=== PATIENT | female | born 1945 | race Asian ===

== ENCOUNTER 2020-06-30 23:20 | Inpatient (IN) | payer MEDICAID, OTHER ==
[~2020-06-30] VITALS: Ht 152.4 cm; Wt 37.6 kg
[2020-06-30] MEDS ORDERED: DEXAMETHASONE SOD PHOS 4 MG/ML 5 ML VIAL IVP ONE (23:30)
[2020-06-30] MEDS ORDERED: ALBUTEROL SULFATE HFA 90 MCG/PUFF 8 GM INHALER IH ONE (23:30)
[2020-06-30 23:59] LABS: ABG A-A DIFF O2 534.7 mmHg (10-20.0); ABG BASE EXCESS -10.3 mmol/L (-2.0-3.0); ABG CARBOXYHEMOGLOBIN 0.7 % (0.0-1.5); ABG HCO3 17.3 mmol/L (22.0-26.0); ABG METHEMOGLOBIN 0.3 % (0.0-1.5); ABG OXYGEN CONTENT 20.8 mL/dL (15.0-23.0); ABG OXYGEN SATURATION 98.6 % (95.0-98.0); ABG OXYHEMOGLOBIN 97.6 % (94.0-100.0); ABG PCO2 33 mmHg (35-45); ABG PH 7.305 (7.35-7.450); PO2, ARTERIAL BG 145.3 mmHg (75.0-83.0); SOURCE, BLOOD GAS ARTERIAL; TEMPERATURE, FAHRENHEIT, BG 98.6 FAHREN (96.0-98.6)
[2020-07-01] VITALS (7 sets, daily range): BP systolic 125–163; BP diastolic 58–81
[2020-07-01] LABS: INSPIRATORY TIME, BG 0.9 SEC; O2 DEVICE,BLOOD GAS BIPAP (ROOM AIR); SITE, BLOOD GAS LFT RADIAL; SPONTANEOUS VT, BG 705 ml; VENT MODE, BG BIPAP (ROOM AIR)
[2020-07-01 00:22] LABS: BASOPHILS % (AUTO) 0.2 % (0.0-2.0); EOSINOPHILS % (AUTO) 0.2 % (1.0-6.0); HEMATOCRIT 41.8 % (36-46); HEMOGLOBIN 13.6 g/dL (12.0-16.0); LYMPHOCYTES % (AUTO) 5.9 % (22.0-44.0); MEAN CORPUSCULAR HEMOGLOBIN 29.5 pg (26.0-34.0); MEAN CORPUSCULAR HGB CONC 32.4 G/dL (31.0-37.0); MEAN CORPUSCULAR VOLUME 91 fL (80-100); MONOCYTES # (AUTO) 0.5 K/uL (0.1-1.0); NEUTROPHILS # (AUTO) 15.3 K/uL (1.8-7.7); PLATELET COUNT (AUTO) 193 K/uL (150-450); RED CELL DISTRIBUTION WIDTH 13.2 % (11.5-14.5)
[2020-07-01 00:26] LABS: NEUTROPHILS % (AUTO) 90.7 % (40.0-70.0)
[2020-07-01 00:34] LABS: ANION GAP 14 mmol/L (8-16); CALCIUM, TOTAL 8.3 mg/dL (8.8-10.5); CARBON DIOXIDE 23 mmol/L (22-29); CHLORIDE 93 mmol/L (98-107); CREATININE 1.22 mg/dL (0.60-1.30); GLOMERULAR FILTR. RATE CALC 43 mL/min (>60); GLUCOSE,RANDOM 294 mg/dL (70-110); POTASSIUM 4.4 mmol/L (3.5-5.1); SODIUM SERUM 130 mmol/L (136-145); UREA NITROGEN, BLOOD 12 mg/dL (7-18)
[2020-07-01 00:58] LABS: INFLUENZA TYPE A NEGATIVE FOR TYPE A (NEGATIVE); INFLUENZA TYPE B NEGATIVE FOR TYPE B (NEGATIVE)
[2020-07-01 00:58] LABS: D-DIMER 12.45 mg/L FEU (0.00-0.50); PROTHROMBIN TIME 10.8 SEC (9.4-11.6)
[2020-07-01 01:00] LABS: B-TYPE NATRIURETIC PEPTIDE 139 pg/mL (0-100)
[2020-07-01 01:03] LABS: LACTIC ACID 7.5 mmol/L (0.4-2.0)
[2020-07-01 01:11] LABS: ALANINE AMINOTRANSFERASE 217 U/L (12-78); ALBUMIN 2.5 g/dL (3.4-5.0); ALKALINE PHOSPHATASE 207 U/L (46-116); ASPARTATE AMINOTRANSFERASE 338 U/L (15-37); BILIRUBIN,TOTAL 0.8 mg/dL (0.1-1.0); C-REACTIVE PROTEIN QUANT 10.96 mg/dL (0.00-0.30); CREATINE KINASE, TOTAL ONLY 183 U/L (26-192); LACTATE DEHYDROGENASE 1356 U/L (81-234); TOTAL PROTEIN, SERUM 7.9 g/dL (6.4-8.2)
[2020-07-01] MEDS ORDERED: PIPERACILLIN/TAZO 3.375 GM/D5W 50 ML IV ONE (01:15)
[2020-07-01] MEDS ORDERED: DOXYCYCLINE HYCLATE 100 MG in DEXTROSE 5%-WATER 100 ML IV ONE (01:15)
[2020-07-01] MEDS ORDERED: SODIUM CHLORIDE 0.9% 1,450 ML IV ONE (01:15)
[2020-07-01] MEDS ORDERED: ASPIRIN 81 MG CHEWABLE TABLET PO ONE (01:15)
[2020-07-01] MEDS ORDERED: CefTRIAXone 1 GM/DEXTROSE 50 ML IV ONE (01:15)
[2020-07-01 01:47] LABS: ABG A-A DIFF O2 509.5 mmHg (10-20.0); ABG BASE EXCESS -5.5 mmol/L (-2.0-3.0); ABG CARBOXYHEMOGLOBIN 0.7 % (0.0-1.5); ABG HCO3 20.5 mmol/L (22.0-26.0); ABG METHEMOGLOBIN 0.1 % (0.0-1.5); ABG OXYGEN CONTENT 18.2 mL/dL (15.0-23.0); ABG OXYGEN SATURATION 91.7 % (95.0-98.0); ABG PCO2 35 mmHg (35-45); ABG PH 7.375 (7.35-7.450); ABG TOTAL HEMOGLOBIN 14.2 G/dL (12.0-18.0); PO2, ARTERIAL BG 60.8 mmHg (75.0-83.0); SOURCE, BLOOD GAS ARTERIAL; TEMPERATURE, FAHRENHEIT, BG 98.6 FAHREN (96.0-98.6)
[2020-07-01 01:49] LABS: INSPIRATORY TIME, BG 0.9 SEC; O2 DEVICE,BLOOD GAS BIPAP (ROOM AIR); SITE, BLOOD GAS LFT RADIAL; SPONTANEOUS VT, BG 505 ml; VENT MODE, BG BIPAP (ROOM AIR)
[2020-07-01] MEDS ORDERED: HEPARIN SODIUM,PORCINE 5,000 UNITS/ML VIAL IVP ONE ×3 (02:00→06:15)
[2020-07-01] MEDS ORDERED: HEPARIN SODIUM,PORCINE 5,000 UNITS/ML VIAL IVP PRN ×4 (02:00→06:15)
[2020-07-01] MEDS ORDERED: HEPARIN SODIUM 25000 UNITS/D5W 250 ML IV PRN ×2 (02:00→06:15)
[2020-07-01 02:03] LABS: FERRITIN 4157 ng/mL (8-252)
[2020-07-01] MEDS ORDERED: SODIUM CHLORIDE 0.9% 100 ML ONE (02:11)
[2020-07-01] MEDS ORDERED: IOVERSOL 350 MG/ML 100 ML VIAL ONE (02:11)
[2020-07-01] MEDS ORDERED: ACETAMINOPHEN 325 MG TABLET PO PRN (04:30)
[2020-07-01] MEDS ORDERED: 0.9% SODIUM CHLORIDE 10 ML SYRINGE IVP PRN (04:30)
[2020-07-01] MEDS ORDERED: DEXAMETHASONE SOD PHOS 4 MG/ML VIAL IVP ONE (06:15)
[2020-07-01] MEDS ORDERED: HYDROCODONE/ACETAMINOPHEN 5-325 MG TABLET PO PRN (06:15)
[2020-07-01] MEDS ORDERED: MORPHINE SULFATE 2 MG/ML SYRINGE IVP PRN (06:15)
[2020-07-01] MEDS ORDERED: ZOLPIDEM TARTRATE 5 MG TABLET PO PRN (06:15)
[2020-07-01] MEDS ORDERED: ONDANSETRON HCL 4 MG/2 ML VIAL IVP PRN (06:15)
[2020-07-01 07:00] LABS: BASOPHILS % (AUTO) 0.1 % (0.0-2.0); EOSINOPHILS % (AUTO) 0 % (1.0-6.0); HEMATOCRIT 38.8 % (36-46); HEMOGLOBIN 12.7 g/dL (12.0-16.0); LYMPHOCYTES # (AUTO) 0.6 K/uL (1.0-4.8); LYMPHOCYTES % (AUTO) 3.4 % (22.0-44.0); MEAN CORPUSCULAR HEMOGLOBIN 29.4 pg (26.0-34.0); MEAN CORPUSCULAR HGB CONC 32.7 G/dL (31.0-37.0); MEAN CORPUSCULAR VOLUME 90 fL (80-100); MONOCYTES # (AUTO) 0.3 K/uL (0.1-1.0); NEUTROPHILS # (AUTO) 15.8 K/uL (1.8-7.7); PLATELET COUNT (AUTO) 170 K/uL (150-450); RED BLOOD CELL COUNT(AUTO) 4.31 MIL/uL (4.00-5.20); RED CELL DISTRIBUTION WIDTH 12.8 % (11.5-14.5)
[2020-07-01] MEDS ORDERED: REMDESIVIR 200 MG in SODIUM CHLORIDE 0.9% 250 ML IV ONE (07:00)
[2020-07-01 07:02] LABS: NEUTROPHILS % (AUTO) 94.5 % (40.0-70.0)
[2020-07-01] MEDS ORDERED: HEPARIN SODIUM,PORCINE 5,000 UNITS/ML VIAL SQ SCH (08:00)
[2020-07-01] MEDS: ASPIRIN 81 MG CHEWABLE TABLET PO SCH (08:50)
[2020-07-01] MEDS: PANTOPRAZOLE SODIUM 40 MG DR TABLET PO SCH (08:50)
[2020-07-01] MEDS: DOCUSATE SODIUM 100 MG CAPSULE PO SCH ×2 (08:50→21:12)
[2020-07-01] MEDS ORDERED: COLCHICINE 0.6 MG TABLET PO ONE (09:00)
[2020-07-01 13:25] LABS: INR 1.1 (0.9-1.1); PROTHROMBIN TIME 11.3 SEC (9.4-11.6)
[2020-07-01] MEDS: ACETAMINOPHEN 325 MG TABLET PO PRN (19:30)
[2020-07-01] MEDS: COLCHICINE 0.6 MG TABLET PO SCH (21:12)
[2020-07-01] MEDS: ATORVASTATIN CALCIUM 40 MG TABLET PO SCH (21:12)
[2020-07-01] MEDS: METOPROLOL SUCCINATE 25 MG ER TABLET PO SCH (21:13)
[2020-07-02] VITALS: BP 124/67
[2020-07-02 04:00] VITALS: BP 127/56
[2020-07-02 04:28] LABS: BASOPHILS % (AUTO) 0.2 % (0.0-2.0); EOSINOPHILS % (AUTO) 0 % (1.0-6.0); HEMATOCRIT 37.5 % (36-46); HEMOGLOBIN 12.3 g/dL (12.0-16.0); LYMPHOCYTES # (AUTO) 1.3 K/uL (1.0-4.8); LYMPHOCYTES % (AUTO) 6.3 % (22.0-44.0); MEAN CORPUSCULAR HEMOGLOBIN 29.3 pg (26.0-34.0); MEAN CORPUSCULAR HGB CONC 32.8 G/dL (31.0-37.0); MEAN CORPUSCULAR VOLUME 89 fL (80-100); MONOCYTES # (AUTO) 0.8 K/uL (0.1-1.0); MONOCYTES % (AUTO) 3.7 % (2.0-9.0); NEUTROPHILS # (AUTO) 18.7 K/uL (1.8-7.7); PLATELET COUNT (AUTO) 221 K/uL (150-450); RED BLOOD CELL COUNT(AUTO) 4.21 MIL/uL (4.00-5.20); RED CELL DISTRIBUTION WIDTH 13.2 % (11.5-14.5)
[2020-07-02 04:34] LABS: NEUTROPHILS % (AUTO) 89.8 % (40.0-70.0)
[2020-07-02 04:44] LABS: ALANINE AMINOTRANSFERASE 160 U/L (12-78); ALBUMIN 2.1 g/dL (3.4-5.0); ALKALINE PHOSPHATASE 164 U/L (46-116); ANION GAP 7 mmol/L (8-16); ASPARTATE AMINOTRANSFERASE 127 U/L (15-37); BILIRUBIN,TOTAL 0.7 mg/dL (0.1-1.0); CARBON DIOXIDE 26 mmol/L (22-29); CHLORIDE 102 mmol/L (98-107); CREATININE 0.85 mg/dL (0.60-1.30); GLUCOSE,RANDOM 136 mg/dL (70-110); POTASSIUM 3.5 mmol/L (3.5-5.1); SODIUM SERUM 135 mmol/L (136-145); TOTAL PROTEIN, SERUM 6.8 g/dL (6.4-8.2); UREA NITROGEN, BLOOD 23 mg/dL (7-18)
[2020-07-02 04:45] LABS: GLOMERULAR FILTR. RATE CALC > 60 mL/min (>60)
[2020-07-02 08:00] VITALS: BP 161/73
[2020-07-02] MEDS: METOPROLOL SUCCINATE 25 MG ER TABLET PO SCH ×3 (08:29→20:52)
[2020-07-02] MEDS: REMDESIVIR 100 MG in SODIUM CHLORIDE 0.9% 250 ML IV SCH (08:29)
[2020-07-02] MEDS: COLCHICINE 0.6 MG TABLET PO SCH ×2 (08:30→20:36)
[2020-07-02] MEDS: PANTOPRAZOLE SODIUM 40 MG DR TABLET PO SCH (08:30)
[2020-07-02] MEDS: ASPIRIN 81 MG CHEWABLE TABLET PO SCH (08:30)
[2020-07-02] MEDS: DOCUSATE SODIUM 100 MG CAPSULE PO SCH ×2 (08:30→20:36)
[2020-07-02] MEDS ORDERED: *CLINICAL-LEVOFLOXACIN IVPB DOSING CLINICAL ONE (11:15)
[2020-07-02 12:00] VITALS: BP 169/80
[2020-07-02] MEDS: LEVOFLOXACIN 750 MG/D5% WATER 150 ML IV SCH (12:08)
[2020-07-02] MEDS: DEXAMETHASONE SOD PHOS 4 MG/ML VIAL IVP SCH (12:51)
[2020-07-02 16:00] VITALS: BP 151/79
[2020-07-02] MEDS: ATORVASTATIN CALCIUM 40 MG TABLET PO SCH (20:51)
[2020-07-03] VITALS: BP 145/72
[2020-07-03 04:42] LABS: BASOPHILS % (AUTO) 0.1 % (0.0-2.0); EOSINOPHILS % (AUTO) 0 % (1.0-6.0); HEMATOCRIT 37.3 % (36-46); HEMOGLOBIN 12.2 g/dL (12.0-16.0); LYMPHOCYTES # (AUTO) 0.9 K/uL (1.0-4.8); LYMPHOCYTES % (AUTO) 4.3 % (22.0-44.0); MEAN CORPUSCULAR HEMOGLOBIN 29.2 pg (26.0-34.0); MEAN CORPUSCULAR HGB CONC 32.7 G/dL (31.0-37.0); MEAN CORPUSCULAR VOLUME 89 fL (80-100); MONOCYTES # (AUTO) 0.7 K/uL (0.1-1.0); MONOCYTES % (AUTO) 3.6 % (2.0-9.0); NEUTROPHILS # (AUTO) 18.7 K/uL (1.8-7.7); PLATELET COUNT (AUTO) 236 K/uL (150-450); RED BLOOD CELL COUNT(AUTO) 4.18 MIL/uL (4.00-5.20); RED CELL DISTRIBUTION WIDTH 13.3 % (11.5-14.5)
[2020-07-03 05:26] LABS: ANION GAP 10 mmol/L (8-16); CARBON DIOXIDE 25 mmol/L (22-29); CHLORIDE 103 mmol/L (98-107); CREATININE 0.63 mg/dL (0.60-1.30); GLOMERULAR FILTR. RATE CALC > 60 mL/min (>60); GLUCOSE,RANDOM 129 mg/dL (70-110); POTASSIUM 3.2 mmol/L (3.5-5.1); SODIUM SERUM 138 mmol/L (136-145); UREA NITROGEN, BLOOD 22 mg/dL (7-18)
[2020-07-03 05:27] LABS: ALANINE AMINOTRANSFERASE 109 U/L (12-78); ALBUMIN 2.1 g/dL (3.4-5.0); ALKALINE PHOSPHATASE 171 U/L (46-116); ASPARTATE AMINOTRANSFERASE 64 U/L (15-37); BILIRUBIN,TOTAL 0.9 mg/dL (0.1-1.0); TOTAL PROTEIN, SERUM 6.6 g/dL (6.4-8.2)
[2020-07-03 06:22] VITALS: BP 170/92
[2020-07-03 08:00] VITALS: BP 175/87
[2020-07-03] MEDS: COLCHICINE 0.6 MG TABLET PO SCH ×2 (08:31→21:03)
[2020-07-03] MEDS: ASPIRIN 81 MG CHEWABLE TABLET PO SCH (08:31)
[2020-07-03] MEDS: REMDESIVIR 100 MG in SODIUM CHLORIDE 0.9% 250 ML IV SCH (08:31)
[2020-07-03] MEDS: PANTOPRAZOLE SODIUM 40 MG DR TABLET PO SCH (08:32)
[2020-07-03] MEDS: DEXAMETHASONE SOD PHOS 4 MG/ML VIAL IVP SCH (08:33)
[2020-07-03] MEDS: METOPROLOL SUCCINATE 25 MG ER TABLET PO SCH (09:00)
[2020-07-03] MEDS: DOCUSATE SODIUM 100 MG CAPSULE PO SCH ×2 (09:00→20:13)
[2020-07-03] MEDS ORDERED: CARVEDILOL 6.25 MG TABLET PO SCH (09:30)
[2020-07-03] MEDS: POTASSIUM CHLORIDE 20 MEQ ER TABLET PO PRN (09:41)
[2020-07-03 12:00] VITALS: BP 139/74
[2020-07-03 16:00] VITALS: BP 136/70
[2020-07-03 20:00] VITALS: BP 159/75
[2020-07-03] MEDS: ATORVASTATIN CALCIUM 40 MG TABLET PO SCH (21:03)
[2020-07-03] MEDS: PANTOPRAZOLE SODIUM 40 MG/VIAL IVP SCH (21:03)
[2020-07-03] MEDS: CARVEDILOL 3.125 MG TABLET PO SCH (21:03)
[2020-07-04] VITALS (8 sets, daily range): BP systolic 111–169; BP diastolic 55–80
[2020-07-04 07:02] LABS: BASOPHILS % (AUTO) 0.2 % (0.0-2.0); EOSINOPHILS % (AUTO) 0.2 % (1.0-6.0); HEMATOCRIT 37.2 % (36-46); HEMOGLOBIN 12.2 g/dL (12.0-16.0); LYMPHOCYTES # (AUTO) 0.7 K/uL (1.0-4.8); LYMPHOCYTES % (AUTO) 4.1 % (22.0-44.0); MEAN CORPUSCULAR HEMOGLOBIN 29.2 pg (26.0-34.0); MEAN CORPUSCULAR HGB CONC 32.9 G/dL (31.0-37.0); MEAN CORPUSCULAR VOLUME 89 fL (80-100); MONOCYTES # (AUTO) 0.9 K/uL (0.1-1.0); MONOCYTES % (AUTO) 5.4 % (2.0-9.0); NEUTROPHILS # (AUTO) 15.9 K/uL (1.8-7.7); PLATELET COUNT (AUTO) 235 K/uL (150-450); RED BLOOD CELL COUNT(AUTO) 4.19 MIL/uL (4.00-5.20)
[2020-07-04 07:38] LABS: NEUTROPHILS % (AUTO) 90.1 % (40.0-70.0)
[2020-07-04 07:59] LABS: ALANINE AMINOTRANSFERASE 102 U/L (12-78); ALBUMIN 1.9 g/dL (3.4-5.0); ALKALINE PHOSPHATASE 160 U/L (46-116); ANION GAP 16 mmol/L (8-16); ASPARTATE AMINOTRANSFERASE 75 U/L (15-37); BILIRUBIN,TOTAL 0.7 mg/dL (0.1-1.0); CARBON DIOXIDE 20 mmol/L (22-29); CHLORIDE 109 mmol/L (98-107); GLUCOSE,RANDOM 112 mg/dL (70-110); POTASSIUM 3.6 mmol/L (3.5-5.1); SODIUM SERUM 145 mmol/L (136-145); TOTAL PROTEIN, SERUM 6.1 g/dL (6.4-8.2); UREA NITROGEN, BLOOD 27 mg/dL (7-18)
[2020-07-04 08:02] LABS: GLOMERULAR FILTR. RATE CALC > 60 mL/min (>60)
[2020-07-04] MEDS: DOCUSATE SODIUM 100 MG CAPSULE PO SCH ×2 (08:55→21:00)
[2020-07-04] MEDS: ASPIRIN 81 MG CHEWABLE TABLET PO SCH (08:57)
[2020-07-04] MEDS: REMDESIVIR 100 MG in SODIUM CHLORIDE 0.9% 250 ML IV SCH (08:57)
[2020-07-04] MEDS: CARVEDILOL 3.125 MG TABLET PO SCH ×2 (08:58→21:00)
[2020-07-04] MEDS: DEXAMETHASONE SOD PHOS 4 MG/ML VIAL IVP SCH (08:58)
[2020-07-04] MEDS: PANTOPRAZOLE SODIUM 40 MG/VIAL IVP SCH ×2 (08:58→21:02)
[2020-07-04] MEDS: CLOPIDOGREL BISULFATE 75 MG TABLET PO SCH (08:58)
[2020-07-04 10:59] LABS: ABG A-A DIFF O2 539.1 mmHg (10-20.0); ABG BASE EXCESS -1.3 mmol/L (-2.0-3.0); ABG HCO3 23.6 mmol/L (22.0-26.0); ABG METHEMOGLOBIN 0.1 % (0.0-1.5); ABG OXYGEN CONTENT 16.8 mL/dL (15.0-23.0); ABG OXYGEN SATURATION 92.6 % (95.0-98.0); ABG OXYHEMOGLOBIN 92.5 % (94.0-100.0); ABG PCO2 36 mmHg (35-45); ABG PH 7.426 (7.35-7.450); ABG TOTAL HEMOGLOBIN 12.9 G/dL (12.0-18.0); O2 DEVICE,BLOOD GAS HI FL CANNULA (ROOM AIR); PO2, ARTERIAL BG 65.4 mmHg (75.0-83.0); SITE, BLOOD GAS RT RADIAL; SOURCE, BLOOD GAS ARTERIAL
[2020-07-04] MEDS: LEVOFLOXACIN 750 MG/D5% WATER 150 ML IV SCH (12:16)
[2020-07-04] MEDS: ASCORBIC ACID 500 MG TABLET PO SCH (21:02)
[2020-07-04] MEDS: ZINC SULFATE 220 MG CAPSULE PO SCH (21:02)
[2020-07-04] MEDS: ATORVASTATIN CALCIUM 40 MG TABLET PO SCH (21:02)
[2020-07-04] MEDS: CHOLECALCIFEROL (VIT D3) 1,000 UNITS [25 MCG] TABLET PO SCH (21:03)
[2020-07-05] VITALS (11 sets, daily range): BP systolic 135–186; BP diastolic 60–100
[2020-07-05 00:03] LABS: GLUCOSE,POINT OF CARE 97 MG/DL (70-110)
[2020-07-05] MEDS ORDERED: LOPERAMIDE HCL 2 MG CAPSULE PO PRN (06:45)
[2020-07-05 07:08] LABS: GLUCOSE,POINT OF CARE 66 MG/DL (70-110)
[2020-07-05] MEDS ORDERED: DEXTROSE 50%-WATER 25 GM/50 ML SYRINGE IVP ONE (07:15)
[2020-07-05] MEDS: REMDESIVIR 100 MG in SODIUM CHLORIDE 0.9% 250 ML IV SCH (08:19)
[2020-07-05 08:22] LABS: BASOPHILS % (AUTO) 0.2 % (0.0-2.0); EOSINOPHILS % (AUTO) 0.8 % (1.0-6.0); HEMATOCRIT 39.3 % (36-46); HEMOGLOBIN 13.1 g/dL (12.0-16.0); LYMPHOCYTES # (AUTO) 0.5 K/uL (1.0-4.8); LYMPHOCYTES % (AUTO) 3.7 % (22.0-44.0); MEAN CORPUSCULAR HEMOGLOBIN 29.5 pg (26.0-34.0); MEAN CORPUSCULAR HGB CONC 33.4 G/dL (31.0-37.0); MEAN CORPUSCULAR VOLUME 88 fL (80-100); MONOCYTES # (AUTO) 0.4 K/uL (0.1-1.0); MONOCYTES % (AUTO) 2.7 % (2.0-9.0); NEUTROPHILS # (AUTO) 12.6 K/uL (1.8-7.7); PLATELET COUNT (AUTO) 197 K/uL (150-450); RED BLOOD CELL COUNT(AUTO) 4.44 MIL/uL (4.00-5.20); RED CELL DISTRIBUTION WIDTH 12.8 % (11.5-14.5)
[2020-07-05 08:26] LABS: NEUTROPHILS % (AUTO) 92.6 % (40.0-70.0)
[2020-07-05] MEDS: DEXAMETHASONE SOD PHOS 4 MG/ML VIAL IVP SCH (08:57)
[2020-07-05] MEDS: DOCUSATE SODIUM 100 MG CAPSULE PO SCH ×2 (09:00→21:00)
[2020-07-05] MEDS: ZINC SULFATE 220 MG CAPSULE PO SCH ×2 (09:01→21:20)
[2020-07-05] MEDS: CLOPIDOGREL BISULFATE 75 MG TABLET PO SCH (09:01)
[2020-07-05] MEDS: CHOLECALCIFEROL (VIT D3) 1,000 UNITS [25 MCG] TABLET PO SCH (09:01)
[2020-07-05] MEDS: ASPIRIN 81 MG CHEWABLE TABLET PO SCH (09:01)
[2020-07-05] MEDS: PANTOPRAZOLE SODIUM 40 MG/VIAL IVP SCH ×3 (09:01→21:20)
[2020-07-05 09:23] LABS: ALANINE AMINOTRANSFERASE 194 U/L (12-78); ALBUMIN 2.5 g/dL (3.4-5.0); ALKALINE PHOSPHATASE 181 U/L (46-116); ANION GAP 11 mmol/L (8-16); ASPARTATE AMINOTRANSFERASE 227 U/L (15-37); BILIRUBIN,TOTAL 1.2 mg/dL (0.1-1.0); CALCIUM, TOTAL 8.4 mg/dL (8.8-10.5); CARBON DIOXIDE 27 mmol/L (22-29); CHLORIDE 101 mmol/L (98-107); CREATININE 0.65 mg/dL (0.60-1.30); FERRITIN 2276 ng/mL (8-252); GLUCOSE,RANDOM 202 mg/dL (70-110); POTASSIUM 3.6 mmol/L (3.5-5.1); SODIUM SERUM 139 mmol/L (136-145); UREA NITROGEN, BLOOD 20 mg/dL (7-18)
[2020-07-05 09:24] LABS: GLOMERULAR FILTR. RATE CALC > 60 mL/min (>60)
[2020-07-05] MEDS: CARVEDILOL 6.25 MG TABLET PO SCH ×2 (09:25→21:20)
[2020-07-05] MEDS: ASCORBIC ACID 500 MG TABLET PO SCH ×2 (09:25→21:20)
[2020-07-05 09:53] LABS: GLUCOSE,POINT OF CARE 135 MG/DL (70-110)
[2020-07-05] MEDS: ACETAMINOPHEN 325 MG TABLET PO PRN ×2 (10:41→17:24)
[2020-07-05] MEDS: LEVOFLOXACIN 750 MG/D5% WATER 150 ML IV SCH (11:17)
[2020-07-05] MEDS ORDERED: HEPARIN SODIUM,PORCINE 5,000 UNITS/ML VIAL IVP PRN (11:45)
[2020-07-05] MEDS: HEPARIN SODIUM 25000 UNITS/D5W 250 ML IV PRN (13:40)
[2020-07-05] MEDS: NITROGLYCERIN 2% (1 GM=INCH) PACKET TP SCH ×2 (17:24→23:55)
[2020-07-05] MEDS: ATORVASTATIN CALCIUM 40 MG TABLET PO SCH (21:22)
[2020-07-06] VITALS (7 sets, daily range): BP systolic 138–169; BP diastolic 57–71
[2020-07-06] MEDS: HEPARIN SODIUM,PORCINE 5,000 UNITS/ML VIAL IVP PRN (02:43)
[2020-07-06 06:49] LABS: BASOPHILS % (AUTO) 0.1 % (0.0-2.0); EOSINOPHILS % (AUTO) 0.8 % (1.0-6.0); HEMOGLOBIN 12.9 g/dL (12.0-16.0); LYMPHOCYTES # (AUTO) 0.7 K/uL (1.0-4.8); LYMPHOCYTES % (AUTO) 5.1 % (22.0-44.0); MEAN CORPUSCULAR VOLUME 88 fL (80-100); MONOCYTES # (AUTO) 0.3 K/uL (0.1-1.0); MONOCYTES % (AUTO) 2.5 % (2.0-9.0); NEUTROPHILS # (AUTO) 12.7 K/uL (1.8-7.7); PLATELET COUNT (AUTO) 188 K/uL (150-450); RED BLOOD CELL COUNT(AUTO) 4.44 MIL/uL (4.00-5.20)
[2020-07-06 07:02] LABS: ALANINE AMINOTRANSFERASE 143 U/L (12-78); ALBUMIN 2.2 g/dL (3.4-5.0); ALKALINE PHOSPHATASE 153 U/L (46-116); ANION GAP 9 mmol/L (8-16); ASPARTATE AMINOTRANSFERASE 106 U/L (15-37); BILIRUBIN,TOTAL 0.9 mg/dL (0.1-1.0); CALCIUM, TOTAL 8.3 mg/dL (8.8-10.5); CARBON DIOXIDE 28 mmol/L (22-29); CHLORIDE 107 mmol/L (98-107); GLUCOSE,RANDOM 104 mg/dL (70-110); POTASSIUM 3.7 mmol/L (3.5-5.1); SODIUM SERUM 144 mmol/L (136-145); TOTAL PROTEIN, SERUM 6.5 g/dL (6.4-8.2); UREA NITROGEN, BLOOD 15 mg/dL (7-18)
[2020-07-06 07:09] LABS: GLOMERULAR FILTR. RATE CALC > 60 mL/min (>60)
[2020-07-06 07:28] LABS: NEUTROPHILS % (AUTO) 91.5 % (40.0-70.0)
[2020-07-06] MEDS: PANTOPRAZOLE SODIUM 40 MG/VIAL IVP SCH ×3 (09:00→21:30)
[2020-07-06] MEDS: DOCUSATE SODIUM 100 MG CAPSULE PO SCH ×2 (09:00→21:00)
[2020-07-06] MEDS: ASPIRIN 81 MG CHEWABLE TABLET PO SCH (09:00)
[2020-07-06] MEDS: CLOPIDOGREL BISULFATE 75 MG TABLET PO SCH (09:00)
[2020-07-06] MEDS: ASCORBIC ACID 500 MG TABLET PO SCH ×2 (09:05→21:30)
[2020-07-06] MEDS: NITROGLYCERIN 2% (1 GM=INCH) PACKET TP SCH ×2 (09:06→16:04)
[2020-07-06] MEDS: ZINC SULFATE 220 MG CAPSULE PO SCH ×2 (09:06→21:30)
[2020-07-06] MEDS: DEXAMETHASONE SOD PHOS 4 MG/ML VIAL IVP SCH (09:06)
[2020-07-06] MEDS: CARVEDILOL 6.25 MG TABLET PO SCH ×2 (09:06→21:30)
[2020-07-06] MEDS: CHOLECALCIFEROL (VIT D3) 1,000 UNITS [25 MCG] TABLET PO SCH (09:06)
[2020-07-06] MEDS: LEVOFLOXACIN 750 MG/D5% WATER 150 ML IV SCH (12:19)
[2020-07-06] MEDS ORDERED: SODIUM CHLORIDE 0.9% 250 ML IV ONE (12:27)
[2020-07-06] MEDS: ATORVASTATIN CALCIUM 40 MG TABLET PO SCH (21:30)
[2020-07-07] VITALS (7 sets, daily range): BP systolic 114–152; BP diastolic 56–72
[2020-07-07] MEDS: NITROGLYCERIN 2% (1 GM=INCH) PACKET TP SCH ×4 (00:43→23:19)
[2020-07-07] MEDS: ASPIRIN 81 MG CHEWABLE TABLET PO SCH (08:51)
[2020-07-07] MEDS: DEXAMETHASONE SOD PHOS 4 MG/ML VIAL IVP SCH (08:51)
[2020-07-07] MEDS: PANTOPRAZOLE SODIUM 40 MG/VIAL IVP SCH ×2 (08:51→20:57)
[2020-07-07] MEDS: CLOPIDOGREL BISULFATE 75 MG TABLET PO SCH (08:52)
[2020-07-07] MEDS: CHOLECALCIFEROL (VIT D3) 1,000 UNITS [25 MCG] TABLET PO SCH (08:52)
[2020-07-07] MEDS: ZINC SULFATE 220 MG CAPSULE PO SCH ×2 (08:52→20:57)
[2020-07-07] MEDS: ASCORBIC ACID 500 MG TABLET PO SCH ×2 (08:52→20:57)
[2020-07-07] MEDS: DOCUSATE SODIUM 100 MG CAPSULE PO SCH ×2 (08:52→20:57)
[2020-07-07] MEDS: CARVEDILOL 6.25 MG TABLET PO SCH ×2 (08:52→20:57)
[2020-07-07 10:31] LABS: D-DIMER 35.2 mg/L FEU (0.00-0.50)
[2020-07-07] MEDS: LEVOFLOXACIN 750 MG/D5% WATER 150 ML IV SCH (11:59)
[2020-07-07] MEDS: ATORVASTATIN CALCIUM 40 MG TABLET PO SCH (20:57)
[2020-07-07] MEDS: HYDROCODONE/CHLORPHEN POLIS 10-8 MG/5 ML ORAL.SYG PO PRN (23:09)
[2020-07-08 05:02] VITALS: BP 143/75
[2020-07-08 07:16] LABS: BASOPHILS % (AUTO) 0.2 % (0.0-2.0); EOSINOPHILS % (AUTO) 0.1 % (1.0-6.0); HEMATOCRIT 37.8 % (36-46); HEMOGLOBIN 12.6 g/dL (12.0-16.0); LYMPHOCYTES # (AUTO) 0.7 K/uL (1.0-4.8); LYMPHOCYTES % (AUTO) 5.1 % (22.0-44.0); MEAN CORPUSCULAR HEMOGLOBIN 29.3 pg (26.0-34.0); MEAN CORPUSCULAR HGB CONC 33.3 G/dL (31.0-37.0); MEAN CORPUSCULAR VOLUME 88 fL (80-100); MONOCYTES # (AUTO) 0.4 K/uL (0.1-1.0); MONOCYTES % (AUTO) 2.6 % (2.0-9.0); NEUTROPHILS # (AUTO) 13.1 K/uL (1.8-7.7); PLATELET COUNT (AUTO) 201 K/uL (150-450); RED BLOOD CELL COUNT(AUTO) 4.29 MIL/uL (4.00-5.20); RED CELL DISTRIBUTION WIDTH 12.9 % (11.5-14.5)
[2020-07-08] MEDS: DOCUSATE SODIUM 100 MG CAPSULE PO SCH ×2 (07:26→20:37)
[2020-07-08 07:30] VITALS: BP 165/76
[2020-07-08] MEDS: NITROGLYCERIN 2% (1 GM=INCH) PACKET TP SCH ×2 (08:25→16:40)
[2020-07-08] MEDS: CHOLECALCIFEROL (VIT D3) 1,000 UNITS [25 MCG] TABLET PO SCH (08:26)
[2020-07-08] MEDS: PANTOPRAZOLE SODIUM 40 MG/VIAL IVP SCH ×2 (08:26→20:37)
[2020-07-08] MEDS: DEXAMETHASONE SOD PHOS 4 MG/ML VIAL IVP SCH (08:26)
[2020-07-08] MEDS: ASCORBIC ACID 500 MG TABLET PO SCH ×2 (08:27→20:37)
[2020-07-08] MEDS: ZINC SULFATE 220 MG CAPSULE PO SCH ×2 (08:27→20:36)
[2020-07-08] MEDS: ASPIRIN 81 MG CHEWABLE TABLET PO SCH (08:27)
[2020-07-08] MEDS: CLOPIDOGREL BISULFATE 75 MG TABLET PO SCH (08:27)
[2020-07-08] MEDS: CARVEDILOL 6.25 MG TABLET PO SCH ×2 (08:27→20:37)
[2020-07-08 12:00] VITALS: BP 166/62
[2020-07-08] MEDS: HEPARIN SODIUM 25000 UNITS/D5W 250 ML IV PRN (12:31)
[2020-07-08 15:30] VITALS: BP 165/76
[2020-07-08 20:00] VITALS: BP 141/72
[2020-07-08] MEDS: ATORVASTATIN CALCIUM 40 MG TABLET PO SCH (20:36)
[2020-07-08 23:40] VITALS: BP 136/64
[2020-07-09] MEDS: NITROGLYCERIN 2% (1 GM=INCH) PACKET TP SCH ×3 (01:33→16:03)
[2020-07-09 04:00] VITALS: BP 144/66
[2020-07-09 06:18] LABS: BASOPHILS % (AUTO) 0.2 % (0.0-2.0); EOSINOPHILS % (AUTO) 0.3 % (1.0-6.0); HEMATOCRIT 36.8 % (36-46); HEMOGLOBIN 12.4 g/dL (12.0-16.0); LYMPHOCYTES # (AUTO) 0.7 K/uL (1.0-4.8); LYMPHOCYTES % (AUTO) 3.5 % (22.0-44.0); MEAN CORPUSCULAR HEMOGLOBIN 29.6 pg (26.0-34.0); MEAN CORPUSCULAR HGB CONC 33.6 G/dL (31.0-37.0); MEAN CORPUSCULAR VOLUME 88 fL (80-100); MONOCYTES # (AUTO) 0.4 K/uL (0.1-1.0); MONOCYTES % (AUTO) 2.1 % (2.0-9.0); NEUTROPHILS # (AUTO) 17.5 K/uL (1.8-7.7); PLATELET COUNT (AUTO) 214 K/uL (150-450); RED BLOOD CELL COUNT(AUTO) 4.18 MIL/uL (4.00-5.20); RED CELL DISTRIBUTION WIDTH 12.8 % (11.5-14.5)
[2020-07-09 06:30] LABS: NEUTROPHILS % (AUTO) 93.9 % (40.0-70.0)
[2020-07-09 07:13] LABS: ALANINE AMINOTRANSFERASE 80 U/L (12-78); ALBUMIN 2.2 g/dL (3.4-5.0); ALKALINE PHOSPHATASE 226 U/L (46-116); ANION GAP 8 mmol/L (8-16); ASPARTATE AMINOTRANSFERASE 61 U/L (15-37); BILIRUBIN,TOTAL 0.8 mg/dL (0.1-1.0); C-REACTIVE PROTEIN QUANT 4.54 mg/dL (0.00-0.30); CALCIUM, TOTAL 8.5 mg/dL (8.8-10.5); CARBON DIOXIDE 31 mmol/L (22-29); CHLORIDE 98 mmol/L (98-107); CREATININE 0.61 mg/dL (0.60-1.30); GLUCOSE,RANDOM 90 mg/dL (70-110); POTASSIUM 4.3 mmol/L (3.5-5.1); SODIUM SERUM 137 mmol/L (136-145); TOTAL PROTEIN, SERUM 6.9 g/dL (6.4-8.2); UREA NITROGEN, BLOOD 16 mg/dL (7-18)
[2020-07-09 07:18] LABS: GLOMERULAR FILTR. RATE CALC > 60 mL/min (>60)
[2020-07-09] MEDS: DEXAMETHASONE SOD PHOS 4 MG/ML VIAL IVP SCH (07:58)
[2020-07-09] MEDS: ZINC SULFATE 220 MG CAPSULE PO SCH ×2 (07:58→20:58)
[2020-07-09] MEDS: CHOLECALCIFEROL (VIT D3) 1,000 UNITS [25 MCG] TABLET PO SCH (07:59)
[2020-07-09] MEDS: DOCUSATE SODIUM 100 MG CAPSULE PO SCH ×2 (07:59→20:59)
[2020-07-09] MEDS: PANTOPRAZOLE SODIUM 40 MG/VIAL IVP SCH ×2 (07:59→20:58)
[2020-07-09] MEDS: ASCORBIC ACID 500 MG TABLET PO SCH ×2 (07:59→20:59)
[2020-07-09] MEDS: CARVEDILOL 6.25 MG TABLET PO SCH ×2 (07:59→20:59)
[2020-07-09 08:24] VITALS: BP 223/103
[2020-07-09 09:00] VITALS: BP 146/74
[2020-07-09 10:44] LABS: ABG BASE EXCESS 6.8 mmol/L (-2.0-3.0); ABG CARBOXYHEMOGLOBIN 1.1 % (0.0-1.5); ABG HCO3 29.6 mmol/L (22.0-26.0); ABG METHEMOGLOBIN 0.3 % (0.0-1.5); ABG OXYGEN CONTENT 18.2 mL/dL (15.0-23.0); ABG OXYGEN SATURATION 96.2 % (95.0-98.0); ABG OXYHEMOGLOBIN 94.9 % (94.0-100.0); ABG PCO2 48 mmHg (35-45); ABG PH 7.428 (7.35-7.450); ABG TOTAL HEMOGLOBIN 13.6 G/dL (12.0-18.0); PO2, ARTERIAL BG 82.7 mmHg (75.0-83.0); SOURCE, BLOOD GAS ARTERIAL
[2020-07-09 10:46] LABS: O2 DEVICE,BLOOD GAS BIPAP (ROOM AIR); SITE, BLOOD GAS RT BRACHIAL
[2020-07-09 10:47] LABS: SPONTANEOUS VT, BG 674 ml
[2020-07-09 11:35] VITALS: BP 174/89
[2020-07-09 15:51] VITALS: BP 147/78
[2020-07-09 20:32] VITALS: BP 183/90
[2020-07-09] MEDS: ATORVASTATIN CALCIUM 40 MG TABLET PO SCH (20:59)
[2020-07-10] VITALS (9 sets, daily range): BP systolic 79–250; BP diastolic 35–93
[2020-07-10] MEDS: NITROGLYCERIN 2% (1 GM=INCH) PACKET TP SCH ×3 (00:25→16:00)
[2020-07-10 06:04] LABS: BASOPHILS % (AUTO) 0.1 % (0.0-2.0); EOSINOPHILS % (AUTO) 0.3 % (1.0-6.0); HEMATOCRIT 37.6 % (36-46); HEMOGLOBIN 12.3 g/dL (12.0-16.0); LYMPHOCYTES # (AUTO) 0.6 K/uL (1.0-4.8); LYMPHOCYTES % (AUTO) 3.4 % (22.0-44.0); MEAN CORPUSCULAR HEMOGLOBIN 29.4 pg (26.0-34.0); MEAN CORPUSCULAR HGB CONC 32.8 G/dL (31.0-37.0); MEAN CORPUSCULAR VOLUME 90 fL (80-100); MONOCYTES # (AUTO) 0.5 K/uL (0.1-1.0); MONOCYTES % (AUTO) 2.7 % (2.0-9.0); PLATELET COUNT (AUTO) 187 K/uL (150-450); RED CELL DISTRIBUTION WIDTH 13.1 % (11.5-14.5)
[2020-07-10 06:09] LABS: NEUTROPHILS % (AUTO) 93.5 % (40.0-70.0)
[2020-07-10 06:53] LABS: ALANINE AMINOTRANSFERASE 85 U/L (12-78); ALBUMIN 2.1 g/dL (3.4-5.0); ALKALINE PHOSPHATASE 211 U/L (46-116); ANION GAP 10 mmol/L (8-16); ASPARTATE AMINOTRANSFERASE 71 U/L (15-37); C-REACTIVE PROTEIN QUANT 7.98 mg/dL (0.00-0.30); CALCIUM, TOTAL 8.3 mg/dL (8.8-10.5); CARBON DIOXIDE 28 mmol/L (22-29); CHLORIDE 92 mmol/L (98-107); CREATININE 0.64 mg/dL (0.60-1.30); GLUCOSE,RANDOM 117 mg/dL (70-110); POTASSIUM 4.3 mmol/L (3.5-5.1); SODIUM SERUM 130 mmol/L (136-145); UREA NITROGEN, BLOOD 25 mg/dL (7-18)
[2020-07-10 06:56] LABS: GLOMERULAR FILTR. RATE CALC > 60 mL/min (>60)
[2020-07-10] MEDS: HEPARIN SODIUM,PORCINE 5,000 UNITS/ML VIAL IVP PRN (07:58)
[2020-07-10] MEDS: ASCORBIC ACID 500 MG TABLET PO SCH ×2 (07:58→21:00)
[2020-07-10] MEDS: DOCUSATE SODIUM 100 MG CAPSULE PO SCH ×2 (07:59→21:00)
[2020-07-10] MEDS: CHOLECALCIFEROL (VIT D3) 1,000 UNITS [25 MCG] TABLET PO SCH (07:59)
[2020-07-10] MEDS: DEXAMETHASONE SOD PHOS 4 MG/ML VIAL IVP SCH (07:59)
[2020-07-10] MEDS: ZINC SULFATE 220 MG CAPSULE PO SCH ×2 (07:59→21:00)
[2020-07-10] MEDS: PANTOPRAZOLE SODIUM 40 MG/VIAL IVP SCH ×2 (07:59→21:00)
[2020-07-10] MEDS: CARVEDILOL 6.25 MG TABLET PO SCH ×3 (07:59→22:33)
[2020-07-10] MEDS: HydrALAZINE HCL 20 MG/ML VIAL IVP PRN ×3 (12:11→22:42)
[2020-07-10] MEDS: LORazepam 2 MG/ML VIAL IVP PRN (14:25)
[2020-07-10] MEDS: DEXMEDETOMIDINE HCL 400 MCG in SODIUM CHLORIDE 0.9% 96 ML IV PRN (15:16)
[2020-07-10] MEDS: CefTAZidime PENTAHYDRATE 2 GM in DEXTROSE 5%-WATER 50 ML IV SCH ×2 (15:16→22:18)
[2020-07-10] MEDS: DOXYCYCLINE HYCLATE 100 MG in DEXTROSE 5%-WATER 100 ML IV SCH (15:17)
[2020-07-10] MEDS: PHENYLEPHRINE 200 MG/D5%-WATER 250 ML IV PRN (16:29)
[2020-07-10] MEDS: HEPARIN SODIUM 25000 UNITS/D5W 250 ML IV PRN (18:38)
[2020-07-10] MEDS: ATORVASTATIN CALCIUM 40 MG TABLET PO SCH (21:00)
[2020-07-11] VITALS: BP 81/33
[2020-07-11] MEDS: DOXYCYCLINE HYCLATE 100 MG in DEXTROSE 5%-WATER 100 ML IV SCH ×2 (03:20→14:04)
[2020-07-11 04:00] VITALS: BP 159/75
[2020-07-11 06:08] LABS: BASOPHILS % (AUTO) 0.6 % (0.0-2.0); EOSINOPHILS % (AUTO) 0.2 % (1.0-6.0); HEMATOCRIT 40.5 % (36-46); HEMOGLOBIN 13.6 g/dL (12.0-16.0); LYMPHOCYTES # (AUTO) 0.6 K/uL (1.0-4.8); LYMPHOCYTES % (AUTO) 2.5 % (22.0-44.0); MEAN CORPUSCULAR HEMOGLOBIN 29.7 pg (26.0-34.0); MEAN CORPUSCULAR HGB CONC 33.7 G/dL (31.0-37.0); MEAN CORPUSCULAR VOLUME 88 fL (80-100); MONOCYTES # (AUTO) 0.8 K/uL (0.1-1.0); MONOCYTES % (AUTO) 3.4 % (2.0-9.0); NEUTROPHILS # (AUTO) 21.4 K/uL (1.8-7.7); PLATELET COUNT (AUTO) 188 K/uL (150-450); RED BLOOD CELL COUNT(AUTO) 4.59 MIL/uL (4.00-5.20)
[2020-07-11] MEDS: CefTAZidime PENTAHYDRATE 2 GM in DEXTROSE 5%-WATER 50 ML IV SCH ×3 (06:17→21:53)
[2020-07-11 06:45] LABS: ALANINE AMINOTRANSFERASE 91 U/L (12-78); ALBUMIN 2.3 g/dL (3.4-5.0); ALKALINE PHOSPHATASE 216 U/L (46-116); ANION GAP 9 mmol/L (8-16); ASPARTATE AMINOTRANSFERASE 61 U/L (15-37); BILIRUBIN,TOTAL 1.3 mg/dL (0.1-1.0); C-REACTIVE PROTEIN QUANT 6.52 mg/dL (0.00-0.30); CARBON DIOXIDE 30 mmol/L (22-29); CHLORIDE 92 mmol/L (98-107); CREATININE 0.72 mg/dL (0.60-1.30); GLUCOSE,RANDOM 78 mg/dL (70-110); POTASSIUM 4.1 mmol/L (3.5-5.1); SODIUM SERUM 131 mmol/L (136-145); TOTAL PROTEIN, SERUM 7.5 g/dL (6.4-8.2); UREA NITROGEN, BLOOD 26 mg/dL (7-18)
[2020-07-11 07:08] LABS: GLOMERULAR FILTR. RATE CALC > 60 mL/min (>60)
[2020-07-11 07:31] LABS: NEUTROPHILS % (AUTO) 93.3 % (40.0-70.0)
[2020-07-11] MEDS ORDERED: DEXMEDETOMIDINE HCL 200 MCG in SODIUM CHLORIDE 0.9% 48 ML IV PRN (07:45)
[2020-07-11] MEDS: PANTOPRAZOLE SODIUM 40 MG/VIAL IVP SCH ×2 (07:55→21:03)
[2020-07-11] MEDS: CARVEDILOL 6.25 MG TABLET PO SCH ×3 (07:55→21:03)
[2020-07-11] MEDS: NITROGLYCERIN 2% (1 GM=INCH) PACKET TP SCH ×3 (07:55→17:38)
[2020-07-11] MEDS: DEXAMETHASONE SOD PHOS 4 MG/ML VIAL IVP SCH (07:55)
[2020-07-11 08:00] VITALS: BP 147/64
[2020-07-11] MEDS: DEXMEDETOMIDINE HCL 400 MCG in SODIUM CHLORIDE 0.9% 96 ML IV PRN (08:17)
[2020-07-11] MEDS: DOCUSATE SODIUM 100 MG CAPSULE PO SCH ×2 (09:00→21:03)
[2020-07-11] MEDS: ZINC SULFATE 220 MG CAPSULE PO SCH ×2 (09:00→21:03)
[2020-07-11] MEDS: ASCORBIC ACID 500 MG TABLET PO SCH ×2 (09:00→21:03)
[2020-07-11] MEDS: CHOLECALCIFEROL (VIT D3) 1,000 UNITS [25 MCG] TABLET PO SCH (09:00)
[2020-07-11] MEDS: LORazepam 2 MG/ML VIAL IVP PRN (10:32)
[2020-07-11 12:00] VITALS: BP 99/43
[2020-07-11 12:32] LABS: GLUCOSE,POINT OF CARE 95 MG/DL (70-110)
[2020-07-11 16:00] VITALS: BP 114/58
[2020-07-11] MEDS ORDERED: LIDOCAINE 1% 10 ML VIAL SQ ONE (16:30)
[2020-07-11] MEDS: DEXTROSE 5%-0.45% SODIUM CHL 1,000 ML IV SCH (17:22)
[2020-07-11] MEDS: HEPARIN SODIUM,PORCINE 5,000 UNITS/ML VIAL IVP PRN (17:50)
[2020-07-11] MEDS: HEPARIN SODIUM 25000 UNITS/D5W 250 ML IV PRN (17:51)
[2020-07-11 20:00] VITALS: BP 120/66
[2020-07-11] MEDS: ATORVASTATIN CALCIUM 40 MG TABLET PO SCH (21:03)
[2020-07-12] VITALS: BP 123/53
[2020-07-12] MEDS: NITROGLYCERIN 2% (1 GM=INCH) PACKET TP SCH ×4 (00:58→23:49)
[2020-07-12] MEDS ORDERED: SODIUM CHLORIDE 0.9% 100 ML ONE (03:06)
[2020-07-12] MEDS: DOXYCYCLINE HYCLATE 100 MG in DEXTROSE 5%-WATER 100 ML IV SCH ×2 (03:09→15:02)
[2020-07-12 04:00] VITALS: BP 164/83
[2020-07-12] MEDS: CefTAZidime PENTAHYDRATE 2 GM in DEXTROSE 5%-WATER 50 ML IV SCH ×3 (05:54→21:08)
[2020-07-12 07:34] LABS: BASOPHILS % (AUTO) 0.1 % (0.0-2.0); EOSINOPHILS % (AUTO) 0 % (1.0-6.0); HEMATOCRIT 35.2 % (36-46); HEMOGLOBIN 11.8 g/dL (12.0-16.0); LYMPHOCYTES # (AUTO) 0.6 K/uL (1.0-4.8); LYMPHOCYTES % (AUTO) 3.2 % (22.0-44.0); MEAN CORPUSCULAR HEMOGLOBIN 29.3 pg (26.0-34.0); MEAN CORPUSCULAR HGB CONC 33.5 G/dL (31.0-37.0); MEAN CORPUSCULAR VOLUME 87 fL (80-100); MONOCYTES # (AUTO) 0.8 K/uL (0.1-1.0); MONOCYTES % (AUTO) 4.3 % (2.0-9.0); NEUTROPHILS # (AUTO) 17.1 K/uL (1.8-7.7); PLATELET COUNT (AUTO) 221 K/uL (150-450); RED BLOOD CELL COUNT(AUTO) 4.03 MIL/uL (4.00-5.20); RED CELL DISTRIBUTION WIDTH 12.8 % (11.5-14.5)
[2020-07-12 07:41] LABS: NEUTROPHILS % (AUTO) 92.4 % (40.0-70.0)
[2020-07-12 08:00] VITALS: BP 150/63
[2020-07-12 08:13] LABS: ALANINE AMINOTRANSFERASE 98 U/L (12-78); ANION GAP 10 mmol/L (8-16); CALCIUM, TOTAL 8.6 mg/dL (8.8-10.5); CARBON DIOXIDE 28 mmol/L (22-29); CHLORIDE 95 mmol/L (98-107); CREATININE 0.57 mg/dL (0.60-1.30); POTASSIUM 3.6 mmol/L (3.5-5.1); SODIUM SERUM 133 mmol/L (136-145)
[2020-07-12 08:22] LABS: GLOMERULAR FILTR. RATE CALC > 60 mL/min (>60)
[2020-07-12 08:34] LABS: ALKALINE PHOSPHATASE 183 U/L (46-116); ASPARTATE AMINOTRANSFERASE 80 U/L (15-37); BILIRUBIN,TOTAL 1.1 mg/dL (0.1-1.0); GLUCOSE,RANDOM 110 mg/dL (70-110); TOTAL PROTEIN, SERUM 6.9 g/dL (6.4-8.2); UREA NITROGEN, BLOOD 29 mg/dL (7-18)
[2020-07-12] MEDS: ZINC SULFATE 220 MG CAPSULE PO SCH ×2 (09:00→21:00)
[2020-07-12] MEDS: ASCORBIC ACID 500 MG TABLET PO SCH ×2 (09:00→21:00)
[2020-07-12] MEDS: CHOLECALCIFEROL (VIT D3) 1,000 UNITS [25 MCG] TABLET PO SCH (09:00)
[2020-07-12] MEDS: CARVEDILOL 3.125 MG TABLET PO SCH ×2 (09:00→21:00)
[2020-07-12] MEDS: ASPIRIN 81 MG CHEWABLE TABLET PO SCH (09:00)
[2020-07-12] MEDS: DOCUSATE SODIUM 100 MG CAPSULE PO SCH ×2 (09:00→21:00)
[2020-07-12] MEDS: DEXAMETHASONE SOD PHOS 4 MG/ML VIAL IVP SCH (09:39)
[2020-07-12] MEDS: LORazepam 2 MG/ML VIAL IVP PRN ×4 (09:40→21:16)
[2020-07-12] MEDS: PANTOPRAZOLE SODIUM 40 MG/VIAL IVP SCH ×2 (09:42→21:06)
[2020-07-12] MEDS: DEXTROSE 5%-0.45% SODIUM CHL 1,000 ML IV SCH (11:32)
[2020-07-12 12:00] VITALS: BP 125/68
[2020-07-12] MEDS ORDERED: DEXTROSE 5%-0.9% SODIUM CHL 1,000 ML IV ONE (13:45)
[2020-07-12 16:00] VITALS: BP 128/75
[2020-07-12 16:51] LABS: GLUCOSE,POINT OF CARE 117 MG/DL (70-110)
[2020-07-12 20:00] VITALS: BP 139/70
[2020-07-12] MEDS: ATORVASTATIN CALCIUM 40 MG TABLET PO SCH (21:00)
[2020-07-13] VITALS: BP 113/50
[2020-07-13 00:15] LABS: GLUCOSE,POINT OF CARE 192 MG/DL (70-110)
[2020-07-13] MEDS: DOXYCYCLINE HYCLATE 100 MG in DEXTROSE 5%-WATER 100 ML IV SCH ×2 (03:10→14:43)
[2020-07-13 04:00] VITALS: BP 152/67
[2020-07-13 05:43] LABS: BASOPHILS % (AUTO) 0.1 % (0.0-2.0); EOSINOPHILS % (AUTO) 0 % (1.0-6.0); HEMATOCRIT 32.6 % (36-46); HEMOGLOBIN 10.9 g/dL (12.0-16.0); LYMPHOCYTES # (AUTO) 0.5 K/uL (1.0-4.8); LYMPHOCYTES % (AUTO) 2.9 % (22.0-44.0); MEAN CORPUSCULAR HEMOGLOBIN 29.5 pg (26.0-34.0); MEAN CORPUSCULAR HGB CONC 33.5 G/dL (31.0-37.0); MEAN CORPUSCULAR VOLUME 88 fL (80-100); MONOCYTES # (AUTO) 0.9 K/uL (0.1-1.0); MONOCYTES % (AUTO) 5.6 % (2.0-9.0); NEUTROPHILS # (AUTO) 14.3 K/uL (1.8-7.7); PLATELET COUNT (AUTO) 212 K/uL (150-450); RED CELL DISTRIBUTION WIDTH 12.8 % (11.5-14.5)
[2020-07-13] MEDS: LORazepam 2 MG/ML VIAL IVP PRN ×6 (05:45→17:53)
[2020-07-13] MEDS: CefTAZidime PENTAHYDRATE 2 GM in DEXTROSE 5%-WATER 50 ML IV SCH ×3 (05:45→22:16)
[2020-07-13 05:56] LABS: NEUTROPHILS % (AUTO) 91.4 % (40.0-70.0)
[2020-07-13 06:02] LABS: ANION GAP 8 mmol/L (8-16); CARBON DIOXIDE 28 mmol/L (22-29); CHLORIDE 103 mmol/L (98-107); CREATININE 0.58 mg/dL (0.60-1.30); GLUCOSE,RANDOM 135 mg/dL (70-110); POTASSIUM 3.5 mmol/L (3.5-5.1); SODIUM SERUM 139 mmol/L (136-145); UREA NITROGEN, BLOOD 21 mg/dL (7-18)
[2020-07-13 06:03] LABS: ALANINE AMINOTRANSFERASE 85 U/L (12-78); ALBUMIN 1.8 g/dL (3.4-5.0); ALKALINE PHOSPHATASE 148 U/L (46-116); ASPARTATE AMINOTRANSFERASE 44 U/L (15-37); BILIRUBIN,TOTAL 0.8 mg/dL (0.1-1.0); CALCIUM, TOTAL 8.2 mg/dL (8.8-10.5); TOTAL PROTEIN, SERUM 6.4 g/dL (6.4-8.2)
[2020-07-13 06:06] LABS: GLOMERULAR FILTR. RATE CALC > 60 mL/min (>60)
[2020-07-13 08:00] VITALS: BP 161/79
[2020-07-13] MEDS: CARVEDILOL 3.125 MG TABLET PO SCH ×2 (08:26→20:13)
[2020-07-13] MEDS: DOCUSATE SODIUM 100 MG CAPSULE PO SCH ×2 (08:26→20:13)
[2020-07-13] MEDS: ASCORBIC ACID 500 MG TABLET PO SCH ×2 (08:26→20:13)
[2020-07-13] MEDS: ASPIRIN 81 MG CHEWABLE TABLET PO SCH (08:26)
[2020-07-13] MEDS: ZINC SULFATE 220 MG CAPSULE PO SCH ×2 (08:27→20:13)
[2020-07-13] MEDS: CHOLECALCIFEROL (VIT D3) 1,000 UNITS [25 MCG] TABLET PO SCH (08:27)
[2020-07-13] MEDS: PANTOPRAZOLE SODIUM 40 MG/VIAL IVP SCH ×2 (08:41→20:12)
[2020-07-13] MEDS: NITROGLYCERIN 2% (1 GM=INCH) PACKET TP SCH ×3 (08:41→23:05)
[2020-07-13] MEDS: DEXAMETHASONE SOD PHOS 4 MG/ML VIAL IVP SCH (08:45)
[2020-07-13] MEDS: POTASSIUM CHL 10 MEQ/WATER 50 ML IV PRN ×3 (09:39→12:11)
[2020-07-13] MEDS: HEPARIN SODIUM 25000 UNITS/D5W 250 ML IV PRN ×2 (11:30→18:50)
[2020-07-13 11:34] LABS: ABG A-A DIFF O2 605.1 mmHg (10-20.0); ABG CARBOXYHEMOGLOBIN 0.8 % (0.0-1.5); ABG HCO3 25.5 mmol/L (22.0-26.0); ABG METHEMOGLOBIN 0.3 % (0.0-1.5); ABG OXYGEN SATURATION 94.6 % (95.0-98.0); ABG OXYHEMOGLOBIN 93.6 % (94.0-100.0); ABG PCO2 36 mmHg (35-45); ABG PH 7.457 (7.35-7.450); ABG TOTAL HEMOGLOBIN 12.1 G/dL (12.0-18.0); O2 DEVICE,BLOOD GAS BIPAP (ROOM AIR); PO2, ARTERIAL BG 71.9 mmHg (75.0-83.0); SITE, BLOOD GAS LFT RADIAL; SOURCE, BLOOD GAS ARTERIAL; TEMPERATURE, FAHRENHEIT, BG 98.6 FAHREN (96.0-98.6)
[2020-07-13] MEDS: HydrALAZINE HCL 20 MG/ML VIAL IVP PRN ×2 (11:56→20:12)
[2020-07-13 12:00] VITALS: BP 181/91
[2020-07-13 16:00] VITALS: BP 139/77
[2020-07-13] MEDS ORDERED: SODIUM CHLORIDE 0.9% 250 ML IV ONE (19:44)
[2020-07-13 20:00] VITALS: BP 154/77
[2020-07-13] MEDS: ATORVASTATIN CALCIUM 40 MG TABLET PO SCH (20:13)
[2020-07-14] VITALS: BP 159/77
[2020-07-14] MEDS: HydrALAZINE HCL 20 MG/ML VIAL IVP PRN ×2 (02:08→08:10)
[2020-07-14] MEDS: LORazepam 2 MG/ML VIAL IVP PRN (03:02)
[2020-07-14] MEDS: DOXYCYCLINE HYCLATE 100 MG in DEXTROSE 5%-WATER 100 ML IV SCH ×2 (03:03→15:18)
[2020-07-14 04:00] VITALS: BP 133/61
[2020-07-14] MEDS: CefTAZidime PENTAHYDRATE 2 GM in DEXTROSE 5%-WATER 50 ML IV SCH ×3 (06:04→21:45)
[2020-07-14] MEDS: ASPIRIN 81 MG CHEWABLE TABLET PO SCH (07:37)
[2020-07-14] MEDS: DOCUSATE SODIUM 100 MG CAPSULE PO SCH ×2 (07:37→20:33)
[2020-07-14] MEDS: CARVEDILOL 3.125 MG TABLET PO SCH ×2 (07:38→21:00)
[2020-07-14] MEDS: ASCORBIC ACID 500 MG TABLET PO SCH ×2 (07:38→20:32)
[2020-07-14] MEDS: ZINC SULFATE 220 MG CAPSULE PO SCH ×2 (07:38→20:33)
[2020-07-14] MEDS: CHOLECALCIFEROL (VIT D3) 1,000 UNITS [25 MCG] TABLET PO SCH (07:38)
[2020-07-14 08:00] VITALS: BP 160/73
[2020-07-14] MEDS: DEXAMETHASONE SOD PHOS 4 MG/ML VIAL IVP SCH (08:06)
[2020-07-14] MEDS: NITROGLYCERIN 2% (1 GM=INCH) PACKET TP SCH ×3 (08:06→23:43)
[2020-07-14] MEDS: PANTOPRAZOLE SODIUM 40 MG/VIAL IVP SCH ×2 (08:06→20:32)
[2020-07-14 09:47] LABS: BASOPHILS % (AUTO) 0.1 % (0.0-2.0); EOSINOPHILS % (AUTO) 0.8 % (1.0-6.0); HEMATOCRIT 34.6 % (36-46); HEMOGLOBIN 11.3 g/dL (12.0-16.0); LYMPHOCYTES # (AUTO) 0.7 K/uL (1.0-4.8); LYMPHOCYTES % (AUTO) 3.7 % (22.0-44.0); MEAN CORPUSCULAR HGB CONC 32.6 G/dL (31.0-37.0); MEAN CORPUSCULAR VOLUME 89 fL (80-100); MONOCYTES # (AUTO) 0.9 K/uL (0.1-1.0); MONOCYTES % (AUTO) 4.6 % (2.0-9.0); PLATELET COUNT (AUTO) 232 K/uL (150-450); RED BLOOD CELL COUNT(AUTO) 3.89 MIL/uL (4.00-5.20); RED CELL DISTRIBUTION WIDTH 13.1 % (11.5-14.5)
[2020-07-14 09:48] LABS: NEUTROPHILS % (AUTO) 90.8 % (40.0-70.0)
[2020-07-14] MEDS ORDERED: ETOMIDATE 2 MG/ML 10 ML VIAL ONE (10:05)
[2020-07-14 10:12] LABS: ALANINE AMINOTRANSFERASE 77 U/L (12-78); ALBUMIN 1.8 g/dL (3.4-5.0); ALKALINE PHOSPHATASE 165 U/L (46-116); ANION GAP 7 mmol/L (8-16); ASPARTATE AMINOTRANSFERASE 45 U/L (15-37); BILIRUBIN,TOTAL 0.7 mg/dL (0.1-1.0); CALCIUM, TOTAL 8.4 mg/dL (8.8-10.5); CARBON DIOXIDE 27 mmol/L (22-29); CHLORIDE 107 mmol/L (98-107); CREATININE 0.44 mg/dL (0.60-1.30); GLUCOSE,RANDOM 78 mg/dL (70-110); POTASSIUM 3.5 mmol/L (3.5-5.1); SODIUM SERUM 141 mmol/L (136-145); TOTAL PROTEIN, SERUM 6.3 g/dL (6.4-8.2); UREA NITROGEN, BLOOD 15 mg/dL (7-18)
[2020-07-14 10:13] LABS: GLOMERULAR FILTR. RATE CALC > 60 mL/min (>60)
[2020-07-14] MEDS ORDERED: ETOMIDATE 2 MG/ML 10 ML VIAL IVP ONE (10:15)
[2020-07-14] MEDS ORDERED: ROCURONIUM BROMIDE 10 MG/ML 5 ML VIAL IVP ONE (10:15)
[2020-07-14] MEDS: DEXTROSE 5%-0.9% SODIUM CHL 1,000 ML IV SCH (10:27)
[2020-07-14] MEDS ORDERED: SODIUM CHLORIDE 0.9% 500 ML IV ONE ×3 (11:24→14:30)
[2020-07-14 12:00] VITALS: BP 231/111
[2020-07-14] MEDS: PROPOFOL 1000 MG/ISO-OSM 100 ML IV PRN ×2 (12:06→17:19)
[2020-07-14] MEDS: FentaNYL CIT 1000MCG/D5%-WATER 100 ML IV PRN ×2 (12:06→21:58)
[2020-07-14] MEDS ORDERED: ALBUMIN HUMAN 25%-25GM/100ML 100 ML IV ONE (14:30)
[2020-07-14 14:49] LABS: ABG A-A DIFF O2 598.5 mmHg (10-20.0); ABG BASE EXCESS -2.3 mmol/L (-2.0-3.0); ABG CARBOXYHEMOGLOBIN 0.6 % (0.0-1.5); ABG HCO3 22.8 mmol/L (22.0-26.0); ABG METHEMOGLOBIN 0.3 % (0.0-1.5); ABG OXYGEN CONTENT 14.9 mL/dL (15.0-23.0); ABG OXYGEN SATURATION 95.8 % (95.0-98.0); ABG OXYHEMOGLOBIN 94.9 % (94.0-100.0); ABG PCO2 37 mmHg (35-45); ABG TOTAL HEMOGLOBIN 11.1 G/dL (12.0-18.0); PO2, ARTERIAL BG 78.4 mmHg (75.0-83.0); SOURCE, BLOOD GAS ARTERIAL; TEMPERATURE, FAHRENHEIT, BG 97.9 FAHREN (96.0-98.6)
[2020-07-14 14:50] LABS: PEEP,BG 7 cm H2O; SITE, BLOOD GAS LFT RADIAL; SPONTANEOUS VT, BG 456 ml
[2020-07-14 14:51] LABS: O2 DEVICE,BLOOD GAS VENTILATOR (ROOM AIR); VENT MODE, BG Press. Control Vent (ROOM AIR)
[2020-07-14] MEDS: PHENYLEPHRINE 200 MG/D5%-WATER 250 ML IV PRN (15:22)
[2020-07-14 16:00] VITALS: BP 115/64
[2020-07-14] MEDS: ATORVASTATIN CALCIUM 40 MG TABLET PO SCH (20:32)
[2020-07-15] VITALS: BP 121/61
[2020-07-15] MEDS: PROPOFOL 1000 MG/ISO-OSM 100 ML IV PRN ×4 (01:36→22:14)
[2020-07-15] MEDS: DOXYCYCLINE HYCLATE 100 MG in DEXTROSE 5%-WATER 100 ML IV SCH ×2 (02:41→15:05)
[2020-07-15 04:00] VITALS: BP 126/59
[2020-07-15] MEDS: CefTAZidime PENTAHYDRATE 2 GM in DEXTROSE 5%-WATER 50 ML IV SCH ×3 (05:30→22:12)
[2020-07-15] MEDS: DEXTROSE 5%-0.9% SODIUM CHL 1,000 ML IV SCH (05:30)
[2020-07-15 06:07] LABS: BASOPHILS % (AUTO) 0.4 % (0.0-2.0); EOSINOPHILS % (AUTO) 1.2 % (1.0-6.0); HEMATOCRIT 26.7 % (36-46); HEMOGLOBIN 8.7 g/dL (12.0-16.0); LYMPHOCYTES # (AUTO) 0.8 K/uL (1.0-4.8); LYMPHOCYTES % (AUTO) 5.7 % (22.0-44.0); MEAN CORPUSCULAR HEMOGLOBIN 29.2 pg (26.0-34.0); MEAN CORPUSCULAR HGB CONC 32.4 G/dL (31.0-37.0); MEAN CORPUSCULAR VOLUME 90 fL (80-100); MONOCYTES # (AUTO) 0.6 K/uL (0.1-1.0); MONOCYTES % (AUTO) 4.1 % (2.0-9.0); NEUTROPHILS # (AUTO) 12.7 K/uL (1.8-7.7); PLATELET COUNT (AUTO) 164 K/uL (150-450); RED BLOOD CELL COUNT(AUTO) 2.96 MIL/uL (4.00-5.20); RED CELL DISTRIBUTION WIDTH 13.3 % (11.5-14.5)
[2020-07-15 06:39] LABS: ALANINE AMINOTRANSFERASE 80 U/L (12-78); ALBUMIN 2.1 g/dL (3.4-5.0); ALKALINE PHOSPHATASE 111 U/L (46-116); ANION GAP 10 mmol/L (8-16); ASPARTATE AMINOTRANSFERASE 44 U/L (15-37); BILIRUBIN,TOTAL 0.6 mg/dL (0.1-1.0); C-REACTIVE PROTEIN QUANT 7.68 mg/dL (0.00-0.30); CALCIUM, TOTAL 8.4 mg/dL (8.8-10.5); CARBON DIOXIDE 23 mmol/L (22-29); CHLORIDE 104 mmol/L (98-107); CREATININE 0.56 mg/dL (0.60-1.30); GLUCOSE,RANDOM 114 mg/dL (70-110); POTASSIUM 3.6 mmol/L (3.5-5.1); SODIUM SERUM 137 mmol/L (136-145); TOTAL PROTEIN, SERUM 5.6 g/dL (6.4-8.2); UREA NITROGEN, BLOOD 22 mg/dL (7-18)
[2020-07-15 06:43] LABS: GLOMERULAR FILTR. RATE CALC > 60 mL/min (>60)
[2020-07-15 07:14] LABS: NEUTROPHILS % (AUTO) 88.6 % (40.0-70.0)
[2020-07-15 08:00] VITALS: BP 107/51
[2020-07-15] MEDS: NITROGLYCERIN 2% (1 GM=INCH) PACKET TP SCH ×2 (08:00→17:11)
[2020-07-15] MEDS: ZINC SULFATE 220 MG CAPSULE PO SCH ×2 (08:26→20:11)
[2020-07-15] MEDS: CHOLECALCIFEROL (VIT D3) 1,000 UNITS [25 MCG] TABLET PO SCH (08:27)
[2020-07-15] MEDS: DOCUSATE SODIUM 100 MG CAPSULE PO SCH ×2 (08:27→20:11)
[2020-07-15] MEDS: PANTOPRAZOLE SODIUM 40 MG/VIAL IVP SCH ×2 (08:27→20:11)
[2020-07-15] MEDS: ASPIRIN 81 MG CHEWABLE TABLET PO SCH (08:27)
[2020-07-15] MEDS: ASCORBIC ACID 500 MG TABLET PO SCH ×2 (08:27→20:11)
[2020-07-15] MEDS: DEXAMETHASONE SOD PHOS 4 MG/ML VIAL IVP SCH (08:27)
[2020-07-15] MEDS: FentaNYL CIT 1000MCG/D5%-WATER 100 ML IV PRN ×2 (08:28→22:13)
[2020-07-15] MEDS: CARVEDILOL 3.125 MG TABLET PO SCH ×2 (08:29→20:11)
[2020-07-15] MEDS ORDERED: SODIUM CHLORIDE 0.9% 500 ML IV ONE (11:45)
[2020-07-15] MEDS ORDERED: BISACODYL 10 MG RECTAL RECTAL SUPPOSITORY PR PRN (11:45)
[2020-07-15 12:00] VITALS: BP 150/73
[2020-07-15] MEDS: POLYETHYLENE GLYCOL 3350 17 GM PACKET PO SCH (12:05)
[2020-07-15] MEDS: BISACODYL 10 MG RECTAL RECTAL SUPPOSITORY PR PRN (12:05)
[2020-07-15 16:00] VITALS: BP 160/82
[2020-07-15] MEDS: HydrALAZINE HCL 20 MG/ML VIAL IVP PRN (17:07)
[2020-07-15 20:00] VITALS: BP 161/69
[2020-07-15] MEDS: ATORVASTATIN CALCIUM 40 MG TABLET PO SCH (20:11)
[2020-07-15] MEDS: HEPARIN SODIUM 25000 UNITS/D5W 250 ML IV PRN (22:14)
[2020-07-16] VITALS: BP 141/53
[2020-07-16] MEDS: NITROGLYCERIN 2% (1 GM=INCH) PACKET TP SCH ×3 (00:07→16:32)
[2020-07-16] MEDS: DEXTROSE 5%-0.9% SODIUM CHL 1,000 ML IV SCH ×2 (01:46→22:23)
[2020-07-16] MEDS: DOXYCYCLINE HYCLATE 100 MG in DEXTROSE 5%-WATER 100 ML IV SCH ×2 (03:18→14:55)
[2020-07-16 04:00] VITALS: BP 144/64
[2020-07-16] MEDS: CefTAZidime PENTAHYDRATE 2 GM in DEXTROSE 5%-WATER 50 ML IV SCH ×3 (05:36→21:20)
[2020-07-16 08:00] VITALS: BP 151/60
[2020-07-16 08:02] LABS: BASOPHILS % (AUTO) 0.3 % (0.0-2.0); EOSINOPHILS % (AUTO) 1.3 % (1.0-6.0); HEMATOCRIT 30.2 % (36-46); HEMOGLOBIN 9.9 g/dL (12.0-16.0); LYMPHOCYTES # (AUTO) 0.8 K/uL (1.0-4.8); LYMPHOCYTES % (AUTO) 4.7 % (22.0-44.0); MEAN CORPUSCULAR HEMOGLOBIN 29.3 pg (26.0-34.0); MEAN CORPUSCULAR HGB CONC 32.7 G/dL (31.0-37.0); MEAN CORPUSCULAR VOLUME 90 fL (80-100); MONOCYTES # (AUTO) 0.5 K/uL (0.1-1.0); MONOCYTES % (AUTO) 2.9 % (2.0-9.0); NEUTROPHILS # (AUTO) 16.5 K/uL (1.8-7.7); PLATELET COUNT (AUTO) 188 K/uL (150-450); RED BLOOD CELL COUNT(AUTO) 3.38 MIL/uL (4.00-5.20); RED CELL DISTRIBUTION WIDTH 13.4 % (11.5-14.5)
[2020-07-16 08:18] LABS: ALANINE AMINOTRANSFERASE 71 U/L (12-78); ALBUMIN 1.7 g/dL (3.4-5.0); ALKALINE PHOSPHATASE 148 U/L (46-116); ANION GAP 9 mmol/L (8-16); ASPARTATE AMINOTRANSFERASE 36 U/L (15-37); BILIRUBIN,TOTAL 0.4 mg/dL (0.1-1.0); CALCIUM, TOTAL 8.3 mg/dL (8.8-10.5); CARBON DIOXIDE 26 mmol/L (22-29); CHLORIDE 110 mmol/L (98-107); CREATININE 0.33 mg/dL (0.60-1.30); GLUCOSE,RANDOM 128 mg/dL (70-110); POTASSIUM 3.4 mmol/L (3.5-5.1); SODIUM SERUM 145 mmol/L (136-145); TOTAL PROTEIN, SERUM 5.7 g/dL (6.4-8.2); UREA NITROGEN, BLOOD 12 mg/dL (7-18)
[2020-07-16 08:19] LABS: GLOMERULAR FILTR. RATE CALC > 60 mL/min (>60)
[2020-07-16] MEDS: FentaNYL CIT 1000MCG/D5%-WATER 100 ML IV PRN ×3 (08:29→23:14)
[2020-07-16] MEDS: DEXAMETHASONE SOD PHOS 4 MG/ML VIAL IVP SCH (08:30)
[2020-07-16] MEDS: ASCORBIC ACID 500 MG TABLET PO SCH ×2 (08:30→20:17)
[2020-07-16] MEDS: PANTOPRAZOLE SODIUM 40 MG/VIAL IVP SCH ×2 (08:30→20:17)
[2020-07-16] MEDS: ASPIRIN 81 MG CHEWABLE TABLET PO SCH (08:30)
[2020-07-16] MEDS: DOCUSATE SODIUM 100 MG CAPSULE PO SCH ×2 (08:31→20:17)
[2020-07-16] MEDS: CARVEDILOL 3.125 MG TABLET PO SCH ×2 (08:31→20:17)
[2020-07-16] MEDS: CHOLECALCIFEROL (VIT D3) 1,000 UNITS [25 MCG] TABLET PO SCH (08:31)
[2020-07-16] MEDS: ZINC SULFATE 220 MG CAPSULE PO SCH ×2 (08:31→20:17)
[2020-07-16] MEDS: POTASSIUM CHL 10 MEQ/WATER 50 ML IV PRN ×3 (08:35→10:50)
[2020-07-16] MEDS: POLYETHYLENE GLYCOL 3350 17 GM PACKET PO SCH (08:35)
[2020-07-16 08:47] LABS: NEUTROPHILS % (AUTO) 90.8 % (40.0-70.0)
[2020-07-16] MEDS: PROPOFOL 1000 MG/ISO-OSM 100 ML IV PRN (10:49)
[2020-07-16 12:00] VITALS: BP 141/55
[2020-07-16 16:00] VITALS: BP 143/65
[2020-07-16] MEDS: HydrALAZINE HCL 20 MG/ML VIAL IVP PRN ×2 (16:32→22:35)
[2020-07-16] MEDS: MIDAZOLAM HCL 100 MG in DEXTROSE 5%-WATER 180 ML IV PRN (17:45)
[2020-07-16 20:00] VITALS: BP 170/77
[2020-07-16] MEDS: ATORVASTATIN CALCIUM 40 MG TABLET PO SCH (20:17)
[2020-07-17] VITALS: BP 144/59
[2020-07-17] MEDS: NITROGLYCERIN 2% (1 GM=INCH) PACKET TP SCH ×3 (00:19→16:22)
[2020-07-17] MEDS: DOXYCYCLINE HYCLATE 100 MG in DEXTROSE 5%-WATER 100 ML IV SCH ×2 (02:39→14:26)
[2020-07-17] MEDS: HydrALAZINE HCL 20 MG/ML VIAL IVP PRN ×2 (02:40→23:03)
[2020-07-17 04:00] VITALS: BP 133/56
[2020-07-17] MEDS: CefTAZidime PENTAHYDRATE 2 GM in DEXTROSE 5%-WATER 50 ML IV SCH ×3 (05:09→22:23)
[2020-07-17] MEDS: FentaNYL CIT 1000MCG/D5%-WATER 100 ML IV PRN ×3 (05:19→17:59)
[2020-07-17] MEDS: LORazepam 2 MG/ML VIAL IVP PRN (05:44)
[2020-07-17] MEDS ORDERED: LORazepam 2 MG/ML VIAL IVP ONE (06:00)
[2020-07-17] MEDS: PROPOFOL 1000 MG/ISO-OSM 100 ML IV PRN ×2 (06:03→13:48)
[2020-07-17 07:12] LABS: ALANINE AMINOTRANSFERASE 82 U/L (12-78); ALBUMIN 1.5 g/dL (3.4-5.0); ALKALINE PHOSPHATASE 197 U/L (46-116); ANION GAP 6 mmol/L (8-16); ASPARTATE AMINOTRANSFERASE 37 U/L (15-37); BILIRUBIN,TOTAL 0.6 mg/dL (0.1-1.0); CALCIUM, TOTAL 7.9 mg/dL (8.8-10.5); CARBON DIOXIDE 28 mmol/L (22-29); CHLORIDE 100 mmol/L (98-107); CREATININE 0.33 mg/dL (0.60-1.30); GLUCOSE,RANDOM 197 mg/dL (70-110); POTASSIUM 3.4 mmol/L (3.5-5.1); SODIUM SERUM 134 mmol/L (136-145); TOTAL PROTEIN, SERUM 5.7 g/dL (6.4-8.2); UREA NITROGEN, BLOOD 13 mg/dL (7-18)
[2020-07-17 07:15] LABS: GLOMERULAR FILTR. RATE CALC > 60 mL/min (>60)
[2020-07-17 07:29] LABS: BASOPHILS % (AUTO) 0.2 % (0.0-2.0); EOSINOPHILS % (AUTO) 1.9 % (1.0-6.0); HEMATOCRIT 31.2 % (36-46); HEMOGLOBIN 10.1 g/dL (12.0-16.0); LYMPHOCYTES # (AUTO) 0.8 K/uL (1.0-4.8); LYMPHOCYTES % (AUTO) 3.9 % (22.0-44.0); MEAN CORPUSCULAR HEMOGLOBIN 29.2 pg (26.0-34.0); MEAN CORPUSCULAR HGB CONC 32.3 G/dL (31.0-37.0); MEAN CORPUSCULAR VOLUME 91 fL (80-100); MONOCYTES # (AUTO) 0.3 K/uL (0.1-1.0); MONOCYTES % (AUTO) 1.5 % (2.0-9.0); NEUTROPHILS # (AUTO) 18.6 K/uL (1.8-7.7); PLATELET COUNT (AUTO) 193 K/uL (150-450); RED BLOOD CELL COUNT(AUTO) 3.45 MIL/uL (4.00-5.20); RED CELL DISTRIBUTION WIDTH 13.4 % (11.5-14.5)
[2020-07-17 07:37] LABS: NEUTROPHILS % (AUTO) 92.5 % (40.0-70.0)
[2020-07-17 08:00] VITALS: BP 139/66
[2020-07-17] MEDS: CARVEDILOL 3.125 MG TABLET PO SCH ×3 (09:00→20:43)
[2020-07-17] MEDS: ZINC SULFATE 220 MG CAPSULE PO SCH ×2 (09:02→20:43)
[2020-07-17] MEDS: MAGNESIUM HYDROXIDE SUSPENSION 30 ML UDCUP PO PRN (09:02)
[2020-07-17] MEDS: ASPIRIN 81 MG CHEWABLE TABLET PO SCH (09:02)
[2020-07-17] MEDS: CHOLECALCIFEROL (VIT D3) 1,000 UNITS [25 MCG] TABLET PO SCH (09:02)
[2020-07-17] MEDS: PANTOPRAZOLE SODIUM 40 MG/VIAL IVP SCH ×2 (09:03→20:43)
[2020-07-17] MEDS: DOCUSATE SODIUM 100 MG CAPSULE PO SCH ×2 (09:03→20:43)
[2020-07-17] MEDS: POLYETHYLENE GLYCOL 3350 17 GM PACKET PO SCH (09:03)
[2020-07-17] MEDS: ASCORBIC ACID 500 MG TABLET PO SCH ×2 (09:03→20:43)
[2020-07-17] MEDS: DEXAMETHASONE SOD PHOS 4 MG/ML VIAL IVP SCH (09:04)
[2020-07-17] MEDS: METOCLOPRAMIDE HCL 5 MG/ML 2 ML VIAL IVP SCH ×3 (09:59→17:59)
[2020-07-17] MEDS: POTASSIUM CHL 10 MEQ/WATER 50 ML IV PRN ×3 (11:41→12:59)
[2020-07-17 12:00] VITALS: BP 128/59
[2020-07-17] MEDS: SODIUM CHLORIDE 0.9% 1,350 ML IV SCH (14:55)
[2020-07-17 16:00] VITALS: BP 141/62
[2020-07-17 20:00] VITALS: BP 130/66
[2020-07-17] MEDS: ATORVASTATIN CALCIUM 40 MG TABLET PO SCH (20:43)
[2020-07-18] VITALS: BP 150/64
[2020-07-18] MEDS: METOCLOPRAMIDE HCL 5 MG/ML 2 ML VIAL IVP SCH ×4 (00:19→18:03)
[2020-07-18] MEDS: NITROGLYCERIN 2% (1 GM=INCH) PACKET TP SCH ×3 (00:19→16:39)
[2020-07-18] MEDS: DOXYCYCLINE HYCLATE 100 MG in DEXTROSE 5%-WATER 100 ML IV SCH ×2 (03:41→15:04)
[2020-07-18 04:00] VITALS: BP 157/71
[2020-07-18 05:14] LABS: BASOPHILS % (AUTO) 0.7 % (0.0-2.0); EOSINOPHILS % (AUTO) 0.7 % (1.0-6.0); HEMATOCRIT 26.8 % (36-46); HEMOGLOBIN 8.9 g/dL (12.0-16.0); LYMPHOCYTES # (AUTO) 0.6 K/uL (1.0-4.8); LYMPHOCYTES % (AUTO) 4.8 % (22.0-44.0); MEAN CORPUSCULAR HEMOGLOBIN 29.8 pg (26.0-34.0); MEAN CORPUSCULAR HGB CONC 33.2 G/dL (31.0-37.0); MEAN CORPUSCULAR VOLUME 90 fL (80-100); MONOCYTES # (AUTO) 0.4 K/uL (0.1-1.0); MONOCYTES % (AUTO) 2.9 % (2.0-9.0); PLATELET COUNT (AUTO) 152 K/uL (150-450); RED BLOOD CELL COUNT(AUTO) 2.99 MIL/uL (4.00-5.20); RED CELL DISTRIBUTION WIDTH 13.7 % (11.5-14.5)
[2020-07-18] MEDS: HydrALAZINE HCL 20 MG/ML VIAL IVP PRN ×2 (05:47→16:40)
[2020-07-18] MEDS: CefTAZidime PENTAHYDRATE 2 GM in DEXTROSE 5%-WATER 50 ML IV SCH ×2 (05:47→13:30)
[2020-07-18 05:50] LABS: NEUTROPHILS % (AUTO) 90.9 % (40.0-70.0)
[2020-07-18 06:06] LABS: ALANINE AMINOTRANSFERASE 120 U/L (12-78); ALBUMIN 1.3 g/dL (3.4-5.0); ALKALINE PHOSPHATASE 232 U/L (46-116); ANION GAP 8 mmol/L (8-16); ASPARTATE AMINOTRANSFERASE 55 U/L (15-37); BILIRUBIN,TOTAL 0.4 mg/dL (0.1-1.0); C-REACTIVE PROTEIN QUANT 11.01 mg/dL (0.00-0.30); CARBON DIOXIDE 26 mmol/L (22-29); CHLORIDE 104 mmol/L (98-107); GLUCOSE,RANDOM 145 mg/dL (70-110); POTASSIUM 4.2 mmol/L (3.5-5.1); SODIUM SERUM 138 mmol/L (136-145); TOTAL PROTEIN, SERUM 5.3 g/dL (6.4-8.2); UREA NITROGEN, BLOOD 18 mg/dL (7-18)
[2020-07-18 06:08] LABS: GLOMERULAR FILTR. RATE CALC > 60 mL/min (>60)
[2020-07-18] MEDS: LORazepam 2 MG/ML VIAL IVP PRN ×2 (07:30→18:03)
[2020-07-18] MEDS: FentaNYL CIT 1000MCG/D5%-WATER 100 ML IV PRN ×3 (07:47→18:32)
[2020-07-18] MEDS: MIDAZOLAM HCL 100 MG in DEXTROSE 5%-WATER 180 ML IV PRN ×2 (07:48→21:28)
[2020-07-18 08:00] VITALS: BP_SYST 134; BP_SYST 172; BP_DIAS 64; BP_DIAS 77
[2020-07-18] MEDS: HEPARIN SODIUM 25000 UNITS/D5W 250 ML IV PRN (08:07)
[2020-07-18] MEDS: POLYETHYLENE GLYCOL 3350 17 GM PACKET PO SCH (10:14)
[2020-07-18] MEDS: ASPIRIN 81 MG CHEWABLE TABLET PO SCH (10:14)
[2020-07-18] MEDS: CHOLECALCIFEROL (VIT D3) 1,000 UNITS [25 MCG] TABLET PO SCH (10:15)
[2020-07-18] MEDS: CARVEDILOL 3.125 MG TABLET PO SCH ×2 (10:15→21:28)
[2020-07-18] MEDS: DOCUSATE SODIUM 100 MG CAPSULE PO SCH ×2 (10:15→21:28)
[2020-07-18] MEDS: ASCORBIC ACID 500 MG TABLET PO SCH ×2 (10:15→21:28)
[2020-07-18] MEDS: ZINC SULFATE 220 MG CAPSULE PO SCH ×2 (10:15→21:35)
[2020-07-18] MEDS: DEXAMETHASONE SOD PHOS 4 MG/ML VIAL IVP SCH (10:16)
[2020-07-18] MEDS: PANTOPRAZOLE SODIUM 40 MG/VIAL IVP SCH ×2 (10:16→21:28)
[2020-07-18 12:00] VITALS: BP 134/64
[2020-07-18] MEDS: SODIUM CHLORIDE 0.9% 1,350 ML IV SCH (13:07)
[2020-07-18 16:00] VITALS: BP 177/81
[2020-07-18 20:00] VITALS: BP 133/59
[2020-07-18] MEDS: ATORVASTATIN CALCIUM 20 MG TABLET PO SCH (21:28)
[2020-07-19] VITALS: BP 125/68
[2020-07-19] MEDS: METOCLOPRAMIDE HCL 5 MG/ML 2 ML VIAL IVP SCH ×4 (00:25→17:19)
[2020-07-19] MEDS: NITROGLYCERIN 2% (1 GM=INCH) PACKET TP SCH ×3 (00:26→15:45)
[2020-07-19] MEDS: FentaNYL CIT 1000MCG/D5%-WATER 100 ML IV PRN ×4 (01:28→21:20)
[2020-07-19 04:00] VITALS: BP 154/78
[2020-07-19 06:12] LABS: BASOPHILS % (AUTO) 0.2 % (0.0-2.0); EOSINOPHILS % (AUTO) 1.3 % (1.0-6.0); HEMATOCRIT 26.7 % (36-46); HEMOGLOBIN 8.8 g/dL (12.0-16.0); LYMPHOCYTES # (AUTO) 0.7 K/uL (1.0-4.8); MEAN CORPUSCULAR HEMOGLOBIN 29.7 pg (26.0-34.0); MEAN CORPUSCULAR HGB CONC 33.1 G/dL (31.0-37.0); MEAN CORPUSCULAR VOLUME 90 fL (80-100); MONOCYTES # (AUTO) 0.3 K/uL (0.1-1.0); NEUTROPHILS # (AUTO) 8.7 K/uL (1.8-7.7); PLATELET COUNT (AUTO) 186 K/uL (150-450); RED BLOOD CELL COUNT(AUTO) 2.98 MIL/uL (4.00-5.20)
[2020-07-19 06:14] LABS: NEUTROPHILS % (AUTO) 88.5 % (40.0-70.0)
[2020-07-19 06:51] LABS: ALANINE AMINOTRANSFERASE 127 U/L (12-78); ALBUMIN 1.3 g/dL (3.4-5.0); ALKALINE PHOSPHATASE 182 U/L (46-116); ANION GAP 7 mmol/L (8-16); ASPARTATE AMINOTRANSFERASE 59 U/L (15-37); BILIRUBIN,TOTAL 0.3 mg/dL (0.1-1.0); CALCIUM, TOTAL 8.3 mg/dL (8.8-10.5); CARBON DIOXIDE 27 mmol/L (22-29); CHLORIDE 104 mmol/L (98-107); CREATININE 0.39 mg/dL (0.60-1.30); GLUCOSE,RANDOM 98 mg/dL (70-110); SODIUM SERUM 138 mmol/L (136-145); TOTAL PROTEIN, SERUM 5.4 g/dL (6.4-8.2); UREA NITROGEN, BLOOD 20 mg/dL (7-18)
[2020-07-19 06:53] LABS: GLOMERULAR FILTR. RATE CALC > 60 mL/min (>60)
[2020-07-19 08:00] VITALS: BP 170/77
[2020-07-19] MEDS: POLYETHYLENE GLYCOL 3350 17 GM PACKET PO SCH (08:41)
[2020-07-19] MEDS: PANTOPRAZOLE SODIUM 40 MG/VIAL IVP SCH ×2 (08:41→21:20)
[2020-07-19] MEDS: MAGNESIUM HYDROXIDE SUSPENSION 30 ML UDCUP PO PRN (08:41)
[2020-07-19] MEDS: CARVEDILOL 3.125 MG TABLET PO SCH ×2 (08:42→21:00)
[2020-07-19] MEDS: DEXAMETHASONE SOD PHOS 4 MG/ML VIAL IVP SCH (08:42)
[2020-07-19] MEDS: ASCORBIC ACID 500 MG TABLET PO SCH ×2 (08:42→21:20)
[2020-07-19] MEDS: DOCUSATE SODIUM 100 MG CAPSULE PO SCH ×2 (08:42→21:20)
[2020-07-19] MEDS: ASPIRIN 81 MG CHEWABLE TABLET PO SCH (08:42)
[2020-07-19] MEDS: CHOLECALCIFEROL (VIT D3) 1,000 UNITS [25 MCG] TABLET PO SCH (08:43)
[2020-07-19] MEDS: ZINC SULFATE 220 MG CAPSULE PO SCH ×2 (08:43→21:20)
[2020-07-19] MEDS: MULTIVITAMINS WITH MINERALS, THERAPEUTIC 15 ML UDCUP NG SCH (08:46)
[2020-07-19] MEDS: HydrALAZINE HCL 20 MG/ML VIAL IVP PRN (09:28)
[2020-07-19 10:51] LABS: ABG A-A DIFF O2 361.8 mmHg (10-20.0); ABG CARBOXYHEMOGLOBIN 0.7 % (0.0-1.5); ABG HCO3 25.1 mmol/L (22.0-26.0); ABG METHEMOGLOBIN 0.3 % (0.0-1.5); ABG OXYGEN CONTENT 12.9 mL/dL (15.0-23.0); ABG OXYGEN SATURATION 89.2 % (95.0-98.0); ABG OXYHEMOGLOBIN 88.3 % (94.0-100.0); ABG PCO2 42 mmHg (35-45); ABG PH 7.405 (7.35-7.450); ABG TOTAL HEMOGLOBIN 10.4 G/dL (12.0-18.0); PO2, ARTERIAL BG 56.6 mmHg (75.0-83.0); SOURCE, BLOOD GAS ARTERIAL
[2020-07-19 10:54] LABS: INSPIRATORY TIME, BG 0.8 SEC; O2 DEVICE,BLOOD GAS VENTILATOR (ROOM AIR); PEEP,BG 7 cm H2O; SITE, BLOOD GAS LFT RADIAL; VENT MODE, BG Press. Control Vent (ROOM AIR); VT, ABG 475 ml
[2020-07-19 11:56] LABS: GLUCOSE,POINT OF CARE 126 MG/DL (70-110)
[2020-07-19 12:00] VITALS: BP 148/63
[2020-07-19] MEDS: SODIUM CHLORIDE 0.9% 1,350 ML IV SCH (12:02)
[2020-07-19] MEDS ORDERED: SODIUM CHLORIDE 0.9% 250 ML IV ONE (15:39)
[2020-07-19] MEDS: MIDAZOLAM HCL 100 MG in DEXTROSE 5%-WATER 180 ML IV PRN (15:48)
[2020-07-19] MEDS: HEPARIN SODIUM 25000 UNITS/D5W 250 ML IV PRN (15:50)
[2020-07-19 16:00] VITALS: BP 146/71
[2020-07-19] MEDS: BISACODYL 10 MG RECTAL RECTAL SUPPOSITORY PR PRN (17:19)
[2020-07-19 20:00] VITALS: BP 162/74
[2020-07-19] MEDS: ATORVASTATIN CALCIUM 20 MG TABLET PO SCH (21:20)
[2020-07-20] VITALS: BP 145/59
[2020-07-20] MEDS: NITROGLYCERIN 2% (1 GM=INCH) PACKET TP SCH ×4 (00:55→23:24)
[2020-07-20] MEDS: METOCLOPRAMIDE HCL 5 MG/ML 2 ML VIAL IVP SCH ×5 (00:55→23:24)
[2020-07-20 04:00] VITALS: BP 162/71
[2020-07-20] MEDS: FentaNYL CIT 1000MCG/D5%-WATER 100 ML IV PRN ×4 (05:01→23:25)
[2020-07-20] MEDS: HydrALAZINE HCL 20 MG/ML VIAL IVP PRN ×3 (05:11→21:17)
[2020-07-20 06:15] LABS: BASOPHILS % (AUTO) 0.4 % (0.0-2.0); EOSINOPHILS % (AUTO) 4.5 % (1.0-6.0); HEMATOCRIT 34.6 % (36-46); HEMOGLOBIN 11.1 g/dL (12.0-16.0); LYMPHOCYTES # (AUTO) 1.6 K/uL (1.0-4.8); LYMPHOCYTES % (AUTO) 11.7 % (22.0-44.0); MEAN CORPUSCULAR HEMOGLOBIN 29.1 pg (26.0-34.0); MEAN CORPUSCULAR HGB CONC 32.1 G/dL (31.0-37.0); MEAN CORPUSCULAR VOLUME 91 fL (80-100); MONOCYTES # (AUTO) 0.5 K/uL (0.1-1.0); MONOCYTES % (AUTO) 4.1 % (2.0-9.0); NEUTROPHILS # (AUTO) 10.5 K/uL (1.8-7.7); NEUTROPHILS % (AUTO) 79.3 % (40.0-70.0); PLATELET COUNT (AUTO) 243 K/uL (150-450); RED BLOOD CELL COUNT(AUTO) 3.82 MIL/uL (4.00-5.20); RED CELL DISTRIBUTION WIDTH 13.7 % (11.5-14.5)
[2020-07-20] MEDS: SODIUM CHLORIDE 0.9% 1,350 ML IV SCH (07:00)
[2020-07-20] MEDS: MIDAZOLAM HCL 100 MG in DEXTROSE 5%-WATER 180 ML IV PRN (07:28)
[2020-07-20] MEDS: CARVEDILOL 3.125 MG TABLET PO SCH ×2 (07:37→20:36)
[2020-07-20 07:41] LABS: ALANINE AMINOTRANSFERASE 169 U/L (12-78); ALBUMIN 1.7 g/dL (3.4-5.0); ALKALINE PHOSPHATASE 230 U/L (46-116); ANION GAP 10 mmol/L (8-16); ASPARTATE AMINOTRANSFERASE 76 U/L (15-37); BILIRUBIN,TOTAL 0.4 mg/dL (0.1-1.0); CALCIUM, TOTAL 8.7 mg/dL (8.8-10.5); CARBON DIOXIDE 25 mmol/L (22-29); CHLORIDE 105 mmol/L (98-107); CREATININE 0.41 mg/dL (0.60-1.30); GLUCOSE,RANDOM 102 mg/dL (70-110); SODIUM SERUM 140 mmol/L (136-145); TOTAL PROTEIN, SERUM 6.4 g/dL (6.4-8.2); UREA NITROGEN, BLOOD 22 mg/dL (7-18)
[2020-07-20 07:42] LABS: GLOMERULAR FILTR. RATE CALC > 60 mL/min (>60)
[2020-07-20] MEDS: LORazepam 2 MG/ML VIAL IVP PRN (07:47)
[2020-07-20 08:00] VITALS: BP 166/91
[2020-07-20] MEDS: CHOLECALCIFEROL (VIT D3) 1,000 UNITS [25 MCG] TABLET PO SCH (09:35)
[2020-07-20] MEDS: ASCORBIC ACID 500 MG TABLET PO SCH ×2 (09:36→20:36)
[2020-07-20] MEDS: MULTIVITAMINS WITH MINERALS, THERAPEUTIC 15 ML UDCUP NG SCH (09:36)
[2020-07-20] MEDS: PANTOPRAZOLE SODIUM 40 MG/VIAL IVP SCH ×2 (09:36→20:36)
[2020-07-20] MEDS: DEXAMETHASONE SOD PHOS 4 MG/ML VIAL IVP SCH (09:36)
[2020-07-20] MEDS: ASPIRIN 81 MG CHEWABLE TABLET PO SCH (09:37)
[2020-07-20] MEDS: DOCUSATE SODIUM 100 MG CAPSULE PO SCH ×2 (09:37→20:37)
[2020-07-20] MEDS: ZINC SULFATE 220 MG CAPSULE PO SCH ×2 (09:37→20:37)
[2020-07-20] MEDS: POLYETHYLENE GLYCOL 3350 17 GM PACKET PO SCH (09:37)
[2020-07-20 12:00] VITALS: BP 142/57
[2020-07-20] MEDS: PROPOFOL 1000 MG/ISO-OSM 100 ML IV PRN (12:59)
[2020-07-20 13:18] LABS: ABG BASE EXCESS 3.5 mmol/L (-2.0-3.0); ABG CARBOXYHEMOGLOBIN 0.6 % (0.0-1.5); ABG HCO3 27.2 mmol/L (22.0-26.0); ABG METHEMOGLOBIN 0.3 % (0.0-1.5); ABG OXYGEN CONTENT 14.4 mL/dL (15.0-23.0); ABG OXYHEMOGLOBIN 94.1 % (94.0-100.0); ABG PCO2 44 mmHg (35-45); ABG PH 7.421 (7.35-7.450); ABG TOTAL HEMOGLOBIN 10.8 G/dL (12.0-18.0); PO2, ARTERIAL BG 76.5 mmHg (75.0-83.0); SOURCE, BLOOD GAS ARTERIAL; TEMPERATURE, FAHRENHEIT, BG 98.7 FAHREN (96.0-98.6)
[2020-07-20 13:57] LABS: O2 DEVICE,BLOOD GAS VENTILATOR (ROOM AIR); PEEP,BG 7 cm H2O; SITE, BLOOD GAS LFT RADIAL; SPONTANEOUS VT, BG 534 ml; VENT MODE, BG Press. Control Vent (ROOM AIR)
[2020-07-20 13:58] LABS: INSPIRATORY TIME, BG 0.8 SEC
[2020-07-20] MEDS ORDERED: CISATRACURIUM BESYLATE 50 MG in DEXTROSE 5%-WATER 245 ML IV PRN (14:45)
[2020-07-20] MEDS ORDERED: CISATRACURIUM BESYLATE 2 MG/ML 10 ML VIAL IVP ONE (14:45)
[2020-07-20 16:00] VITALS: BP 131/61
[2020-07-20] MEDS ORDERED: NOREPINEPHRINE 4 MG/D5%-WATER 250 ML IV ONE ×2 (17:25→17:54)
[2020-07-20] MEDS: PHENYLEPHRINE 200 MG/D5%-WATER 250 ML IV PRN (18:34)
[2020-07-20] MEDS: NOREPINEPHRINE 4 MG/D5%-WATER 250 ML IV PRN (18:36)
[2020-07-20 20:00] VITALS: BP 151/74
[2020-07-20] MEDS ORDERED: SODIUM CHLORIDE 0.9% 500 ML IV ONE (20:19)
[2020-07-20] MEDS: ATORVASTATIN CALCIUM 20 MG TABLET PO SCH (20:37)
[2020-07-21] VITALS: BP 127/59
[2020-07-21] MEDS: PROPOFOL 1000 MG/ISO-OSM 100 ML IV PRN ×3 (02:34→16:14)
[2020-07-21 04:00] VITALS: BP 142/55
[2020-07-21] MEDS: METOCLOPRAMIDE HCL 5 MG/ML 2 ML VIAL IVP SCH ×3 (05:43→18:44)
[2020-07-21] MEDS: HEPARIN SODIUM 25000 UNITS/D5W 250 ML IV PRN (05:44)
[2020-07-21 06:14] LABS: BASOPHILS % (AUTO) 0.3 % (0.0-2.0); EOSINOPHILS % (AUTO) 4.2 % (1.0-6.0); HEMATOCRIT 28.5 % (36-46); HEMOGLOBIN 9.6 g/dL (12.0-16.0); LYMPHOCYTES # (AUTO) 1.2 K/uL (1.0-4.8); LYMPHOCYTES % (AUTO) 11.7 % (22.0-44.0); MEAN CORPUSCULAR HEMOGLOBIN 30.1 pg (26.0-34.0); MEAN CORPUSCULAR HGB CONC 33.8 G/dL (31.0-37.0); MEAN CORPUSCULAR VOLUME 89 fL (80-100); MONOCYTES # (AUTO) 0.4 K/uL (0.1-1.0); MONOCYTES % (AUTO) 3.6 % (2.0-9.0); NEUTROPHILS # (AUTO) 8.2 K/uL (1.8-7.7); NEUTROPHILS % (AUTO) 80.2 % (40.0-70.0); PLATELET COUNT (AUTO) 193 K/uL (150-450); RED CELL DISTRIBUTION WIDTH 13.7 % (11.5-14.5)
[2020-07-21] MEDS: HydrALAZINE HCL 20 MG/ML VIAL IVP PRN ×2 (06:18→12:59)
[2020-07-21 06:36] LABS: ANION GAP 5 mmol/L (8-16); CALCIUM, TOTAL 8.3 mg/dL (8.8-10.5); CARBON DIOXIDE 31 mmol/L (22-29); CHLORIDE 104 mmol/L (98-107); CREATININE 0.34 mg/dL (0.60-1.30); GLUCOSE,RANDOM 84 mg/dL (70-110); POTASSIUM 3.9 mmol/L (3.5-5.1); SODIUM SERUM 140 mmol/L (136-145); UREA NITROGEN, BLOOD 19 mg/dL (7-18)
[2020-07-21 06:38] LABS: GLOMERULAR FILTR. RATE CALC > 60 mL/min (>60)
[2020-07-21] MEDS: CARVEDILOL 3.125 MG TABLET PO SCH (07:36)
[2020-07-21] MEDS: LORazepam 2 MG/ML VIAL IVP PRN ×2 (07:36→13:14)
[2020-07-21 08:00] VITALS: BP 171/66
[2020-07-21] MEDS: POLYETHYLENE GLYCOL 3350 17 GM PACKET PO SCH (08:48)
[2020-07-21] MEDS: NITROGLYCERIN 2% (1 GM=INCH) PACKET TP SCH ×3 (08:48→23:35)
[2020-07-21] MEDS: MULTIVITAMINS WITH MINERALS, THERAPEUTIC 15 ML UDCUP NG SCH (08:49)
[2020-07-21] MEDS: DOCUSATE SODIUM 100 MG CAPSULE PO SCH ×2 (08:49→21:02)
[2020-07-21] MEDS: ASCORBIC ACID 500 MG TABLET PO SCH ×2 (08:50→21:02)
[2020-07-21] MEDS: ZINC SULFATE 220 MG CAPSULE PO SCH ×2 (08:50→21:02)
[2020-07-21] MEDS: CHOLECALCIFEROL (VIT D3) 1,000 UNITS [25 MCG] TABLET PO SCH (08:50)
[2020-07-21] MEDS: DEXAMETHASONE SOD PHOS 4 MG/ML VIAL IVP SCH (08:50)
[2020-07-21] MEDS: PANTOPRAZOLE SODIUM 40 MG/VIAL IVP SCH ×2 (08:51→21:02)
[2020-07-21] MEDS: ASPIRIN 81 MG CHEWABLE TABLET PO SCH (08:51)
[2020-07-21] MEDS: FentaNYL CIT 1000MCG/D5%-WATER 100 ML IV PRN ×2 (10:22→16:19)
[2020-07-21 12:00] VITALS: BP 159/73
[2020-07-21 16:00] VITALS: BP 131/63
[2020-07-21 20:00] VITALS: BP 125/52
[2020-07-21] MEDS: ATORVASTATIN CALCIUM 20 MG TABLET PO SCH (21:02)
[2020-07-21] MEDS ORDERED: SODIUM CHLORIDE 0.9% 250 ML IV ONE (23:58)
[2020-07-22] VITALS: BP 152/69
[2020-07-22] MEDS: PROPOFOL 1000 MG/ISO-OSM 100 ML IV PRN ×5 (00:08→23:09)
[2020-07-22] MEDS: METOCLOPRAMIDE HCL 5 MG/ML 2 ML VIAL IVP SCH ×5 (00:08→23:57)
[2020-07-22] MEDS: HEPARIN SODIUM 25000 UNITS/D5W 250 ML IV PRN (00:09)
[2020-07-22] MEDS: FentaNYL CIT 1000MCG/D5%-WATER 100 ML IV PRN ×5 (00:10→22:33)
[2020-07-22] MEDS: HydrALAZINE HCL 20 MG/ML VIAL IVP PRN (00:11)
[2020-07-22 04:00] VITALS: BP 152/68
[2020-07-22 06:52] LABS: BASOPHILS % (AUTO) 0.2 % (0.0-2.0); EOSINOPHILS % (AUTO) 4.2 % (1.0-6.0); HEMATOCRIT 25.4 % (36-46); HEMOGLOBIN 8.6 g/dL (12.0-16.0); LYMPHOCYTES # (AUTO) 1.4 K/uL (1.0-4.8); LYMPHOCYTES % (AUTO) 12.5 % (22.0-44.0); MEAN CORPUSCULAR HEMOGLOBIN 30.3 pg (26.0-34.0); MEAN CORPUSCULAR VOLUME 89 fL (80-100); MONOCYTES # (AUTO) 0.4 K/uL (0.1-1.0); MONOCYTES % (AUTO) 3.2 % (2.0-9.0); NEUTROPHILS # (AUTO) 9.1 K/uL (1.8-7.7); NEUTROPHILS % (AUTO) 79.9 % (40.0-70.0); PLATELET COUNT (AUTO) 176 K/uL (150-450); RED BLOOD CELL COUNT(AUTO) 2.85 MIL/uL (4.00-5.20); RED CELL DISTRIBUTION WIDTH 13.3 % (11.5-14.5)
[2020-07-22 07:44] LABS: ALANINE AMINOTRANSFERASE 281 U/L (12-78); ALBUMIN 1.3 g/dL (3.4-5.0); ALKALINE PHOSPHATASE 421 U/L (46-116); ANION GAP 5 mmol/L (8-16); ASPARTATE AMINOTRANSFERASE 69 U/L (15-37); BILIRUBIN,TOTAL 0.3 mg/dL (0.1-1.0); CALCIUM, TOTAL 8.1 mg/dL (8.8-10.5); CARBON DIOXIDE 32 mmol/L (22-29); CHLORIDE 104 mmol/L (98-107); CREATININE 0.37 mg/dL (0.60-1.30); GLUCOSE,RANDOM 91 mg/dL (70-110); POTASSIUM 3.9 mmol/L (3.5-5.1); SODIUM SERUM 141 mmol/L (136-145); TOTAL PROTEIN, SERUM 5.2 g/dL (6.4-8.2); UREA NITROGEN, BLOOD 18 mg/dL (7-18)
[2020-07-22 07:47] LABS: GLOMERULAR FILTR. RATE CALC > 60 mL/min (>60)
[2020-07-22 08:00] VITALS: BP 123/52
[2020-07-22] MEDS: POLYETHYLENE GLYCOL 3350 17 GM PACKET PO SCH (09:04)
[2020-07-22] MEDS: NITROGLYCERIN 2% (1 GM=INCH) PACKET TP SCH ×2 (09:04→16:09)
[2020-07-22] MEDS: DEXAMETHASONE SOD PHOS 4 MG/ML VIAL IVP SCH (09:04)
[2020-07-22] MEDS: PANTOPRAZOLE SODIUM 40 MG/VIAL IVP SCH ×2 (09:05→20:48)
[2020-07-22] MEDS: ASCORBIC ACID 500 MG TABLET PO SCH ×2 (09:05→20:48)
[2020-07-22] MEDS: ASPIRIN 81 MG CHEWABLE TABLET PO SCH (09:05)
[2020-07-22] MEDS: CHOLECALCIFEROL (VIT D3) 1,000 UNITS [25 MCG] TABLET PO SCH (09:06)
[2020-07-22] MEDS: ZINC SULFATE 220 MG CAPSULE PO SCH ×2 (09:06→20:48)
[2020-07-22] MEDS: DOCUSATE SODIUM 100 MG CAPSULE PO SCH ×2 (09:06→20:49)
[2020-07-22] MEDS: MULTIVITAMINS WITH MINERALS, THERAPEUTIC 15 ML UDCUP NG SCH (09:10)
[2020-07-22 12:00] VITALS: BP 152/67
[2020-07-22 16:00] VITALS: BP 136/61
[2020-07-22 20:00] VITALS: BP 168/72
[2020-07-23] VITALS: BP 151/61
[2020-07-23] MEDS: NITROGLYCERIN 2% (1 GM=INCH) PACKET TP SCH ×4 (00:31→23:27)
[2020-07-23] MEDS: METOCLOPRAMIDE HCL 5 MG/ML 2 ML VIAL IVP SCH ×4 (00:32→23:28)
[2020-07-23] MEDS ORDERED: SODIUM CHLORIDE 0.9% 250 ML IV ONE (01:25)
[2020-07-23] MEDS: HydrALAZINE HCL 20 MG/ML VIAL IVP PRN ×3 (02:58→15:57)
[2020-07-23] MEDS: FentaNYL CIT 1000MCG/D5%-WATER 100 ML IV PRN ×3 (03:13→16:05)
[2020-07-23 04:00] VITALS: BP 198/84
[2020-07-23] MEDS: PROPOFOL 1000 MG/ISO-OSM 100 ML IV PRN ×3 (04:21→23:28)
[2020-07-23 05:30] LABS: BASOPHILS % (AUTO) 0.4 % (0.0-2.0); EOSINOPHILS % (AUTO) 3.9 % (1.0-6.0); HEMATOCRIT 30.6 % (36-46); HEMOGLOBIN 9.9 g/dL (12.0-16.0); LYMPHOCYTES # (AUTO) 1.7 K/uL (1.0-4.8); LYMPHOCYTES % (AUTO) 10.8 % (22.0-44.0); MEAN CORPUSCULAR HEMOGLOBIN 29.2 pg (26.0-34.0); MEAN CORPUSCULAR HGB CONC 32.5 G/dL (31.0-37.0); MEAN CORPUSCULAR VOLUME 90 fL (80-100); MONOCYTES # (AUTO) 0.4 K/uL (0.1-1.0); MONOCYTES % (AUTO) 2.7 % (2.0-9.0); NEUTROPHILS # (AUTO) 12.9 K/uL (1.8-7.7); NEUTROPHILS % (AUTO) 82.2 % (40.0-70.0); PLATELET COUNT (AUTO) 244 K/uL (150-450); RED CELL DISTRIBUTION WIDTH 13.9 % (11.5-14.5)
[2020-07-23 06:06] LABS: ALANINE AMINOTRANSFERASE 222 U/L (12-78); ALBUMIN 1.6 g/dL (3.4-5.0); ALKALINE PHOSPHATASE 388 U/L (46-116); ANION GAP 4 mmol/L (8-16); ASPARTATE AMINOTRANSFERASE 51 U/L (15-37); BILIRUBIN,TOTAL 0.4 mg/dL (0.1-1.0); C-REACTIVE PROTEIN QUANT 1.78 mg/dL (0.00-0.30); CALCIUM, TOTAL 8.3 mg/dL (8.8-10.5); CARBON DIOXIDE 32 mmol/L (22-29); CHLORIDE 104 mmol/L (98-107); CREATININE 0.37 mg/dL (0.60-1.30); GLUCOSE,RANDOM 115 mg/dL (70-110); POTASSIUM 3.6 mmol/L (3.5-5.1); SODIUM SERUM 140 mmol/L (136-145); UREA NITROGEN, BLOOD 17 mg/dL (7-18)
[2020-07-23 06:07] LABS: GLOMERULAR FILTR. RATE CALC > 60 mL/min (>60)
[2020-07-23] MEDS: HEPARIN SODIUM 25000 UNITS/D5W 250 ML IV PRN (06:39)
[2020-07-23] MEDS: LORazepam 2 MG/ML VIAL IVP PRN ×5 (07:53→20:15)
[2020-07-23 08:00] VITALS: BP 147/64
[2020-07-23] MEDS: MULTIVITAMINS WITH MINERALS, THERAPEUTIC 15 ML UDCUP NG SCH (08:58)
[2020-07-23] MEDS: CHOLECALCIFEROL (VIT D3) 1,000 UNITS [25 MCG] TABLET PO SCH (08:58)
[2020-07-23] MEDS: DEXAMETHASONE SOD PHOS 4 MG/ML VIAL IVP SCH (08:58)
[2020-07-23] MEDS: PANTOPRAZOLE SODIUM 40 MG/VIAL IVP SCH ×2 (08:58→20:14)
[2020-07-23] MEDS: DOCUSATE SODIUM 100 MG CAPSULE PO SCH ×2 (08:58→20:14)
[2020-07-23] MEDS: ASCORBIC ACID 500 MG TABLET PO SCH ×2 (08:58→20:14)
[2020-07-23] MEDS: ASPIRIN 81 MG CHEWABLE TABLET PO SCH (08:58)
[2020-07-23] MEDS: ZINC SULFATE 220 MG CAPSULE PO SCH ×2 (08:58→20:14)
[2020-07-23] MEDS: POLYETHYLENE GLYCOL 3350 17 GM PACKET PO SCH (09:00)
[2020-07-23 12:00] VITALS: BP 137/55
[2020-07-23] MEDS: MetroNIDAZOLE 500 MG/NACL 100 ML IV SCH ×2 (14:22→22:46)
[2020-07-23 16:00] VITALS: BP 163/73
[2020-07-23 20:00] VITALS: BP 169/73
[2020-07-23] MEDS: ACETAMINOPHEN 325 MG TABLET PO PRN (23:28)
[2020-07-24] VITALS: BP 156/65
[2020-07-24] MEDS: LORazepam 2 MG/ML VIAL IVP PRN ×3 (01:11→11:24)
[2020-07-24 04:00] VITALS: BP 153/59
[2020-07-24] MEDS: MetroNIDAZOLE 500 MG/NACL 100 ML IV SCH ×3 (05:21→21:01)
[2020-07-24] MEDS: FentaNYL CIT 1000MCG/D5%-WATER 100 ML IV PRN ×3 (05:25→23:54)
[2020-07-24] MEDS: METOCLOPRAMIDE HCL 5 MG/ML 2 ML VIAL IVP SCH ×4 (05:25→23:55)
[2020-07-24 05:28] LABS: BASOPHILS % (AUTO) 0.5 % (0.0-2.0); EOSINOPHILS % (AUTO) 5.8 % (1.0-6.0); HEMATOCRIT 28.3 % (36-46); HEMOGLOBIN 9.3 g/dL (12.0-16.0); LYMPHOCYTES # (AUTO) 2.3 K/uL (1.0-4.8); MEAN CORPUSCULAR HEMOGLOBIN 29.3 pg (26.0-34.0); MEAN CORPUSCULAR HGB CONC 32.8 G/dL (31.0-37.0); MEAN CORPUSCULAR VOLUME 89 fL (80-100); MONOCYTES # (AUTO) 0.3 K/uL (0.1-1.0); MONOCYTES % (AUTO) 2.6 % (2.0-9.0); NEUTROPHILS # (AUTO) 9.2 K/uL (1.8-7.7); NEUTROPHILS % (AUTO) 73.1 % (40.0-70.0); PLATELET COUNT (AUTO) 241 K/uL (150-450); RED BLOOD CELL COUNT(AUTO) 3.16 MIL/uL (4.00-5.20); RED CELL DISTRIBUTION WIDTH 13.7 % (11.5-14.5)
[2020-07-24 05:45] LABS: ALANINE AMINOTRANSFERASE 174 U/L (12-78); ALBUMIN 1.7 g/dL (3.4-5.0); ALKALINE PHOSPHATASE 321 U/L (46-116); ANION GAP 5 mmol/L (8-16); ASPARTATE AMINOTRANSFERASE 51 U/L (15-37); BILIRUBIN,TOTAL 0.5 mg/dL (0.1-1.0); CALCIUM, TOTAL 8.4 mg/dL (8.8-10.5); CARBON DIOXIDE 33 mmol/L (22-29); CHLORIDE 102 mmol/L (98-107); CREATININE 0.44 mg/dL (0.60-1.30); GLUCOSE,RANDOM 91 mg/dL (70-110); POTASSIUM 3.4 mmol/L (3.5-5.1); SODIUM SERUM 140 mmol/L (136-145); UREA NITROGEN, BLOOD 20 mg/dL (7-18)
[2020-07-24 06:00] LABS: GLOMERULAR FILTR. RATE CALC > 60 mL/min (>60)
[2020-07-24 08:00] VITALS: BP 139/59
[2020-07-24] MEDS: MULTIVITAMINS WITH MINERALS, THERAPEUTIC 15 ML UDCUP NG SCH (08:52)
[2020-07-24] MEDS: DOCUSATE SODIUM 100 MG CAPSULE PO SCH ×2 (08:52→20:58)
[2020-07-24] MEDS: ASPIRIN 81 MG CHEWABLE TABLET PO SCH (08:52)
[2020-07-24] MEDS: DEXAMETHASONE SOD PHOS 4 MG/ML VIAL IVP SCH (08:52)
[2020-07-24] MEDS: PANTOPRAZOLE SODIUM 40 MG/VIAL IVP SCH ×2 (08:52→20:58)
[2020-07-24] MEDS: CHOLECALCIFEROL (VIT D3) 1,000 UNITS [25 MCG] TABLET PO SCH (08:53)
[2020-07-24] MEDS: ZINC SULFATE 220 MG CAPSULE PO SCH ×2 (08:53→20:58)
[2020-07-24] MEDS: ASCORBIC ACID 500 MG TABLET PO SCH ×2 (08:53→20:58)
[2020-07-24] MEDS: POTASSIUM CHL 10 MEQ/WATER 50 ML IV PRN ×3 (08:56→11:08)
[2020-07-24] MEDS: POLYETHYLENE GLYCOL 3350 17 GM PACKET PO SCH (09:00)
[2020-07-24 09:48] LABS: ABG BASE EXCESS 6.7 mmol/L (-2.0-3.0); ABG CARBOXYHEMOGLOBIN 0.3 % (0.0-1.5); ABG HCO3 29.9 mmol/L (22.0-26.0); ABG METHEMOGLOBIN 0.1 % (0.0-1.5); ABG OXYGEN CONTENT 11.2 mL/dL (15.0-23.0); ABG OXYGEN SATURATION 85.7 % (95.0-98.0); ABG OXYHEMOGLOBIN 85.4 % (94.0-100.0); ABG PCO2 42 mmHg (35-45); ABG PH 7.475 (7.35-7.450); ABG TOTAL HEMOGLOBIN 9.3 G/dL (12.0-18.0); PO2, ARTERIAL BG 51.6 mmHg (75.0-83.0); SOURCE, BLOOD GAS ARTERIAL; TEMPERATURE, FAHRENHEIT, BG 99.6 FAHREN (96.0-98.6)
[2020-07-24 09:49] LABS: O2 DEVICE,BLOOD GAS VENTILATOR (ROOM AIR); PEEP,BG 6 cm H2O; SITE, BLOOD GAS LFT RADIAL; VENT MODE, BG Press. Control Vent (ROOM AIR)
[2020-07-24] MEDS: HydrALAZINE HCL 20 MG/ML VIAL IVP PRN (10:03)
[2020-07-24] MEDS: PROPOFOL 1000 MG/ISO-OSM 100 ML IV PRN ×2 (10:20→17:17)
[2020-07-24 12:00] VITALS: BP 170/75
[2020-07-24 13:08] LABS: ABG A-A DIFF O2 425.5 mmHg (10-20.0); ABG BASE EXCESS 6.7 mmol/L (-2.0-3.0); ABG CARBOXYHEMOGLOBIN 0.3 % (0.0-1.5); ABG HCO3 29.8 mmol/L (22.0-26.0); ABG OXYGEN CONTENT 13.2 mL/dL (15.0-23.0); ABG OXYGEN SATURATION 91.3 % (95.0-98.0); ABG PCO2 44 mmHg (35-45); ABG TOTAL HEMOGLOBIN 10.3 G/dL (12.0-18.0); PO2, ARTERIAL BG 61.9 mmHg (75.0-83.0); SOURCE, BLOOD GAS ARTERIAL; TEMPERATURE, FAHRENHEIT, BG 99.4 FAHREN (96.0-98.6)
[2020-07-24 13:10] LABS: O2 DEVICE,BLOOD GAS VENTILATOR (ROOM AIR); PEEP,BG 6 cm H2O; SITE, BLOOD GAS LFT RADIAL; VENT MODE, BG Press. Control Vent (ROOM AIR)
[2020-07-24 15:20] LABS: APPEARANCE,URINE CLEAR (CLEAR); BILIRUBIN,URINE NEGATIVE (NEGATIVE); GLUCOSE, URINE (UA) NEGATIVE (NEGATIVE); KETONES,URINE NEGATIVE (NEGATIVE); LEUKOCYTE ESTERASE ,URINE NEGATIVE (NEGATIVE); NITRATE,URINE NEGATIVE (NEGATIVE); OCCULT BLOOD,URINE NEGATIVE (NEGATIVE); PH,URINE 7.5 (5.0-8.0); PROTEIN,URINE NEGATIVE (NEGATIVE)
[2020-07-24 15:32] LABS: BACTERIA,URINE None Seen /HPF (None Seen); RBC,URINE None Seen /HPF (0-2); SQUAMOUS EPITHELIAL CELL,UR Few /LPF (None Seen); WBC,URINE None Seen /HPF (0-5)
[2020-07-24 16:00] VITALS: BP 121/52
[2020-07-24] MEDS ORDERED: SODIUM CHLORIDE 0.9% 250 ML IV ONE (16:07)
[2020-07-24 20:00] VITALS: BP 120/52
[2020-07-25] VITALS: BP 133/52
[2020-07-25] MEDS: MIDAZOLAM HCL 100 MG in DEXTROSE 5%-WATER 180 ML IV PRN ×2 (01:03→13:01)
[2020-07-25] MEDS ORDERED: CISATRACURIUM BESYLATE 100 MG in DEXTROSE 5%-WATER 240 ML IV PRN (03:45)
[2020-07-25] MEDS: PROPOFOL 1000 MG/ISO-OSM 100 ML IV PRN ×2 (03:55→08:49)
[2020-07-25 04:00] VITALS: BP 183/83
[2020-07-25] MEDS: MetroNIDAZOLE 500 MG/NACL 100 ML IV SCH ×3 (05:07→22:19)
[2020-07-25 06:14] LABS: BASOPHILS % (AUTO) 0.4 % (0.0-2.0); HEMATOCRIT 25.5 % (36-46); HEMOGLOBIN 8.6 g/dL (12.0-16.0); LYMPHOCYTES # (AUTO) 1.9 K/uL (1.0-4.8); LYMPHOCYTES % (AUTO) 17.7 % (22.0-44.0); MEAN CORPUSCULAR HEMOGLOBIN 30.3 pg (26.0-34.0); MEAN CORPUSCULAR HGB CONC 33.5 G/dL (31.0-37.0); MEAN CORPUSCULAR VOLUME 91 fL (80-100); MONOCYTES # (AUTO) 0.3 K/uL (0.1-1.0); MONOCYTES % (AUTO) 2.9 % (2.0-9.0); NEUTROPHILS # (AUTO) 7.9 K/uL (1.8-7.7); PLATELET COUNT (AUTO) 228 K/uL (150-450); RED BLOOD CELL COUNT(AUTO) 2.82 MIL/uL (4.00-5.20); RED CELL DISTRIBUTION WIDTH 13.9 % (11.5-14.5)
[2020-07-25] MEDS: METOCLOPRAMIDE HCL 5 MG/ML 2 ML VIAL IVP SCH ×3 (06:23→18:25)
[2020-07-25] MEDS: HEPARIN SODIUM 25000 UNITS/D5W 250 ML IV PRN (06:24)
[2020-07-25 06:28] LABS: ALANINE AMINOTRANSFERASE 113 U/L (12-78); ALBUMIN 1.6 g/dL (3.4-5.0); ALKALINE PHOSPHATASE 248 U/L (46-116); ANION GAP 5 mmol/L (8-16); ASPARTATE AMINOTRANSFERASE 36 U/L (15-37); BILIRUBIN,TOTAL 0.5 mg/dL (0.1-1.0); CALCIUM, TOTAL 8.2 mg/dL (8.8-10.5); CARBON DIOXIDE 33 mmol/L (22-29); CHLORIDE 102 mmol/L (98-107); CREATININE 0.32 mg/dL (0.60-1.30); GLUCOSE,RANDOM 110 mg/dL (70-110); POTASSIUM 3.5 mmol/L (3.5-5.1); SODIUM SERUM 140 mmol/L (136-145); TOTAL PROTEIN, SERUM 5.4 g/dL (6.4-8.2); UREA NITROGEN, BLOOD 25 mg/dL (7-18)
[2020-07-25 06:40] LABS: GLOMERULAR FILTR. RATE CALC > 60 mL/min (>60)
[2020-07-25 08:00] VITALS: BP_SYST 144; BP_SYST 161; BP_DIAS 61; BP_DIAS 75
[2020-07-25] MEDS: FentaNYL CIT 1000MCG/D5%-WATER 100 ML IV PRN ×2 (08:50→15:48)
[2020-07-25] MEDS: POLYETHYLENE GLYCOL 3350 17 GM PACKET PO SCH (08:50)
[2020-07-25] MEDS: PANTOPRAZOLE SODIUM 40 MG/VIAL IVP SCH ×2 (08:50→20:04)
[2020-07-25] MEDS: HydrALAZINE HCL 20 MG/ML VIAL IVP PRN ×2 (08:51→22:19)
[2020-07-25] MEDS: DEXAMETHASONE SOD PHOS 4 MG/ML VIAL IVP SCH (08:51)
[2020-07-25] MEDS: MULTIVITAMINS WITH MINERALS, THERAPEUTIC 15 ML UDCUP NG SCH (08:51)
[2020-07-25] MEDS: ASPIRIN 81 MG CHEWABLE TABLET PO SCH (08:51)
[2020-07-25] MEDS: ASCORBIC ACID 500 MG TABLET PO SCH ×2 (08:52→20:04)
[2020-07-25] MEDS: DOCUSATE SODIUM 100 MG CAPSULE PO SCH ×3 (08:52→20:21)
[2020-07-25] MEDS: ZINC SULFATE 220 MG CAPSULE PO SCH ×2 (08:52→20:04)
[2020-07-25] MEDS: CHOLECALCIFEROL (VIT D3) 1,000 UNITS [25 MCG] TABLET PO SCH (08:52)
[2020-07-25 12:00] VITALS: BP 144/61
[2020-07-25 16:00] VITALS: BP 157/67
[2020-07-25 20:00] VITALS: BP 173/71
[2020-07-26] VITALS: BP 167/62
[2020-07-26] MEDS: METOCLOPRAMIDE HCL 5 MG/ML 2 ML VIAL IVP SCH ×4 (00:27→17:00)
[2020-07-26] MEDS: FentaNYL CIT 1000MCG/D5%-WATER 100 ML IV PRN ×4 (01:30→21:50)
[2020-07-26] MEDS: HydrALAZINE HCL 20 MG/ML VIAL IVP PRN (02:23)
[2020-07-26] MEDS: MIDAZOLAM HCL 100 MG in DEXTROSE 5%-WATER 180 ML IV PRN ×2 (02:23→17:00)
[2020-07-26 04:00] VITALS: BP 131/54
[2020-07-26] MEDS: MetroNIDAZOLE 500 MG/NACL 100 ML IV SCH ×3 (06:07→20:50)
[2020-07-26 06:44] LABS: BASOPHILS % (AUTO) 0.4 % (0.0-2.0); HEMATOCRIT 27.1 % (36-46); HEMOGLOBIN 8.8 g/dL (12.0-16.0); LYMPHOCYTES # (AUTO) 1.9 K/uL (1.0-4.8); LYMPHOCYTES % (AUTO) 14.2 % (22.0-44.0); MEAN CORPUSCULAR HEMOGLOBIN 29.6 pg (26.0-34.0); MEAN CORPUSCULAR HGB CONC 32.5 G/dL (31.0-37.0); MEAN CORPUSCULAR VOLUME 91 fL (80-100); MONOCYTES # (AUTO) 0.4 K/uL (0.1-1.0); MONOCYTES % (AUTO) 3.2 % (2.0-9.0); NEUTROPHILS # (AUTO) 10.6 K/uL (1.8-7.7); NEUTROPHILS % (AUTO) 78.2 % (40.0-70.0); PLATELET COUNT (AUTO) 252 K/uL (150-450); RED BLOOD CELL COUNT(AUTO) 2.98 MIL/uL (4.00-5.20); RED CELL DISTRIBUTION WIDTH 14.1 % (11.5-14.5)
[2020-07-26 06:52] LABS: ANION GAP 5 mmol/L (8-16); CARBON DIOXIDE 31 mmol/L (22-29); CHLORIDE 100 mmol/L (98-107); CREATININE 0.37 mg/dL (0.60-1.30); GLUCOSE,RANDOM 163 mg/dL (70-110); POTASSIUM 3.5 mmol/L (3.5-5.1); SODIUM SERUM 136 mmol/L (136-145); UREA NITROGEN, BLOOD 18 mg/dL (7-18)
[2020-07-26 06:53] LABS: CALCIUM, TOTAL 8.4 mg/dL (8.8-10.5); GLOMERULAR FILTR. RATE CALC > 60 mL/min (>60)
[2020-07-26 08:00] VITALS: BP 142/71
[2020-07-26] MEDS: DEXAMETHASONE SOD PHOS 4 MG/ML VIAL IVP SCH (08:53)
[2020-07-26] MEDS: ZINC SULFATE 220 MG CAPSULE PO SCH ×2 (08:53→20:50)
[2020-07-26] MEDS: PANTOPRAZOLE SODIUM 40 MG/VIAL IVP SCH ×2 (08:53→20:50)
[2020-07-26] MEDS: DOCUSATE SODIUM 100 MG CAPSULE PO SCH ×2 (08:54→20:50)
[2020-07-26] MEDS: CHOLECALCIFEROL (VIT D3) 1,000 UNITS [25 MCG] TABLET PO SCH (08:54)
[2020-07-26] MEDS: ASPIRIN 81 MG CHEWABLE TABLET PO SCH (08:54)
[2020-07-26] MEDS: POLYETHYLENE GLYCOL 3350 17 GM PACKET PO SCH (08:54)
[2020-07-26] MEDS: MULTIVITAMINS WITH MINERALS, THERAPEUTIC 15 ML UDCUP NG SCH (08:54)
[2020-07-26] MEDS: ASCORBIC ACID 500 MG TABLET PO SCH ×2 (08:55→20:50)
[2020-07-26] MEDS: PROPOFOL 1000 MG/ISO-OSM 100 ML IV PRN ×2 (10:13→13:22)
[2020-07-26] MEDS ORDERED: HYDROCHLOROTHIAZIDE 25 MG TABLET PO SCH (10:45)
[2020-07-26] MEDS: ACETAMINOPHEN 325 MG TABLET PO PRN ×2 (11:41→17:00)
[2020-07-26 12:00] VITALS: BP 140/70
[2020-07-26 16:00] VITALS: BP 121/54
[2020-07-26 20:00] VITALS: BP 124/62
[2020-07-27] VITALS: BP 150/70
[2020-07-27] MEDS: METOCLOPRAMIDE HCL 5 MG/ML 2 ML VIAL IVP SCH ×4 (01:14→19:29)
[2020-07-27 04:23] VITALS: BP 122/55
[2020-07-27] MEDS: FentaNYL CIT 1000MCG/D5%-WATER 100 ML IV PRN ×4 (05:02→21:18)
[2020-07-27] MEDS: MetroNIDAZOLE 500 MG/NACL 100 ML IV SCH ×3 (05:49→21:21)
[2020-07-27 06:39] LABS: EOSINOPHILS % (AUTO) 4.5 % (1.0-6.0); HEMATOCRIT 28.4 % (36-46); HEMOGLOBIN 9.2 g/dL (12.0-16.0); LYMPHOCYTES % (AUTO) 19.4 % (22.0-44.0); MEAN CORPUSCULAR HEMOGLOBIN 29.6 pg (26.0-34.0); MEAN CORPUSCULAR HGB CONC 32.5 G/dL (31.0-37.0); MEAN CORPUSCULAR VOLUME 91 fL (80-100); MONOCYTES # (AUTO) 0.4 K/uL (0.1-1.0); MONOCYTES % (AUTO) 3.9 % (2.0-9.0); NEUTROPHILS # (AUTO) 7.3 K/uL (1.8-7.7); NEUTROPHILS % (AUTO) 71.2 % (40.0-70.0); PLATELET COUNT (AUTO) 236 K/uL (150-450); RED BLOOD CELL COUNT(AUTO) 3.12 MIL/uL (4.00-5.20); RED CELL DISTRIBUTION WIDTH 14.7 % (11.5-14.5)
[2020-07-27 06:47] LABS: B-TYPE NATRIURETIC PEPTIDE 40 pg/mL (0-100)
[2020-07-27 07:08] LABS: ALANINE AMINOTRANSFERASE 83 U/L (12-78); ALBUMIN 1.8 g/dL (3.4-5.0); ALKALINE PHOSPHATASE 192 U/L (46-116); ANION GAP 4 mmol/L (8-16); ASPARTATE AMINOTRANSFERASE 30 U/L (15-37); BILIRUBIN,TOTAL 0.4 mg/dL (0.1-1.0); CALCIUM, TOTAL 8.3 mg/dL (8.8-10.5); CARBON DIOXIDE 31 mmol/L (22-29); CHLORIDE 102 mmol/L (98-107); CREATININE 0.42 mg/dL (0.60-1.30); GLUCOSE,RANDOM 134 mg/dL (70-110); POTASSIUM 3.3 mmol/L (3.5-5.1); SODIUM SERUM 137 mmol/L (136-145); TOTAL PROTEIN, SERUM 5.6 g/dL (6.4-8.2); UREA NITROGEN, BLOOD 18 mg/dL (7-18)
[2020-07-27 07:10] LABS: GLOMERULAR FILTR. RATE CALC > 60 mL/min (>60)
[2020-07-27 08:00] VITALS: BP 151/71
[2020-07-27] MEDS: DEXAMETHASONE SOD PHOS 4 MG/ML VIAL IVP SCH (08:03)
[2020-07-27] MEDS: DOCUSATE SODIUM 100 MG CAPSULE PO SCH ×2 (08:03→21:18)
[2020-07-27] MEDS: PANTOPRAZOLE SODIUM 40 MG/VIAL IVP SCH ×2 (08:03→21:17)
[2020-07-27] MEDS: ASCORBIC ACID 500 MG TABLET PO SCH ×2 (08:03→21:19)
[2020-07-27] MEDS: ASPIRIN 81 MG CHEWABLE TABLET PO SCH (08:03)
[2020-07-27] MEDS: POTASSIUM CHL 10 MEQ/WATER 50 ML IV PRN ×3 (08:04→11:46)
[2020-07-27] MEDS: ZINC SULFATE 220 MG CAPSULE PO SCH ×2 (08:04→21:18)
[2020-07-27] MEDS: CHOLECALCIFEROL (VIT D3) 1,000 UNITS [25 MCG] TABLET PO SCH (08:04)
[2020-07-27] MEDS: POLYETHYLENE GLYCOL 3350 17 GM PACKET PO SCH (08:11)
[2020-07-27] MEDS: MULTIVITAMINS WITH MINERALS, THERAPEUTIC 15 ML UDCUP NG SCH (08:11)
[2020-07-27] MEDS: HydrALAZINE HCL 20 MG/ML VIAL IVP PRN (10:15)
[2020-07-27] MEDS: HEPARIN SODIUM 25000 UNITS/D5W 250 ML IV PRN (10:19)
[2020-07-27] MEDS: MIDAZOLAM HCL 100 MG in DEXTROSE 5%-WATER 180 ML IV PRN (10:20)
[2020-07-27 12:00] VITALS: BP 115/47
[2020-07-27 16:00] VITALS: BP 106/46
[2020-07-27 20:00] VITALS: BP 94/35
[2020-07-27] MEDS: DIAZEPAM 5 MG TABLET PO SCH (21:18)
[2020-07-27] MEDS ORDERED: SODIUM CHLORIDE 0.9% 250 ML IV ONE (23:24)
[2020-07-28] VITALS (7 sets, daily range): BP systolic 107–200; BP diastolic 44–91
[2020-07-28] MEDS: METOCLOPRAMIDE HCL 5 MG/ML 2 ML VIAL IVP SCH ×4 (00:53→17:25)
[2020-07-28] MEDS: MIDAZOLAM HCL 100 MG in DEXTROSE 5%-WATER 180 ML IV PRN ×3 (03:54→13:24)
[2020-07-28 05:51] LABS: BASOPHILS % (AUTO) 0.5 % (0.0-2.0); EOSINOPHILS % (AUTO) 3.5 % (1.0-6.0); HEMATOCRIT 30.3 % (36-46); HEMOGLOBIN 9.8 g/dL (12.0-16.0); LYMPHOCYTES % (AUTO) 15.7 % (22.0-44.0); MEAN CORPUSCULAR HEMOGLOBIN 29.6 pg (26.0-34.0); MEAN CORPUSCULAR HGB CONC 32.3 G/dL (31.0-37.0); MEAN CORPUSCULAR VOLUME 92 fL (80-100); MONOCYTES # (AUTO) 0.8 K/uL (0.1-1.0); MONOCYTES % (AUTO) 5.9 % (2.0-9.0); NEUTROPHILS # (AUTO) 9.6 K/uL (1.8-7.7); NEUTROPHILS % (AUTO) 74.4 % (40.0-70.0); PLATELET COUNT (AUTO) 306 K/uL (150-450); RED BLOOD CELL COUNT(AUTO) 3.31 MIL/uL (4.00-5.20); RED CELL DISTRIBUTION WIDTH 15.3 % (11.5-14.5)
[2020-07-28 06:14] LABS: ASPARTATE AMINOTRANSFERASE 30 U/L (15-37); BILIRUBIN,TOTAL 0.6 mg/dL (0.1-1.0); CALCIUM, TOTAL 8.6 mg/dL (8.8-10.5); CHLORIDE 101 mmol/L (98-107); POTASSIUM 3.6 mmol/L (3.5-5.1); TOTAL PROTEIN, SERUM 6.7 g/dL (6.4-8.2)
[2020-07-28] MEDS: FentaNYL CIT 1000MCG/D5%-WATER 100 ML IV PRN ×4 (06:26→21:42)
[2020-07-28] MEDS: MetroNIDAZOLE 500 MG/NACL 100 ML IV SCH ×3 (06:28→21:41)
[2020-07-28 07:51] LABS: ALANINE AMINOTRANSFERASE 83 U/L (12-78); ALBUMIN 2.2 g/dL (3.4-5.0); ALKALINE PHOSPHATASE 206 U/L (46-116); ANION GAP 9 mmol/L (8-16); CARBON DIOXIDE 28 mmol/L (22-29); CREATININE 0.42 mg/dL (0.60-1.30); GLOMERULAR FILTR. RATE CALC > 60 mL/min (>60); GLUCOSE,RANDOM 148 mg/dL (70-110); SODIUM SERUM 138 mmol/L (136-145); UREA NITROGEN, BLOOD 21 mg/dL (7-18)
[2020-07-28] MEDS ORDERED: SODIUM CHLORIDE 0.9% 250 ML IV ONE (08:39)
[2020-07-28] MEDS: MULTIVITAMINS WITH MINERALS, THERAPEUTIC 15 ML UDCUP NG SCH (08:50)
[2020-07-28] MEDS: PANTOPRAZOLE SODIUM 40 MG/VIAL IVP SCH ×2 (08:50→21:42)
[2020-07-28] MEDS: AMINO ACIDS/PROTEIN HYDROLYS 30 ML TUBE PO SCH ×3 (08:51→16:43)
[2020-07-28] MEDS: HydrALAZINE HCL 20 MG/ML VIAL IVP PRN ×2 (08:51→14:09)
[2020-07-28] MEDS: ZINC SULFATE 220 MG CAPSULE PO SCH ×2 (08:51→21:43)
[2020-07-28] MEDS: DEXAMETHASONE SOD PHOS 4 MG/ML VIAL IVP SCH (08:51)
[2020-07-28] MEDS: CHOLECALCIFEROL (VIT D3) 1,000 UNITS [25 MCG] TABLET PO SCH (08:51)
[2020-07-28] MEDS: ASCORBIC ACID 500 MG TABLET PO SCH ×2 (08:51→21:43)
[2020-07-28] MEDS: DIAZEPAM 5 MG TABLET PO SCH ×2 (08:51→21:43)
[2020-07-28] MEDS: ASPIRIN 81 MG CHEWABLE TABLET PO SCH (08:52)
[2020-07-28] MEDS: DOCUSATE SODIUM 100 MG CAPSULE PO SCH ×2 (08:52→21:00)
[2020-07-28] MEDS: POLYETHYLENE GLYCOL 3350 17 GM PACKET PO SCH (08:52)
[2020-07-28] MEDS: HEPARIN SODIUM 25000 UNITS/D5W 250 ML IV PRN (11:31)
[2020-07-28] MEDS: HydrALAZINE HCL 50 MG TABLET PO SCH ×2 (15:13→17:26)
[2020-07-28] MEDS: PROPOFOL 1000 MG/ISO-OSM 100 ML IV PRN (15:44)
[2020-07-29] VITALS: BP 108/50
[2020-07-29] MEDS: HydrALAZINE HCL 50 MG TABLET PO SCH ×4 (01:02→18:00)
[2020-07-29] MEDS: METOCLOPRAMIDE HCL 5 MG/ML 2 ML VIAL IVP SCH ×4 (01:02→18:37)
[2020-07-29 04:00] VITALS: BP 135/54
[2020-07-29] MEDS: PROPOFOL 1000 MG/ISO-OSM 100 ML IV PRN (04:16)
[2020-07-29] MEDS: FentaNYL CIT 1000MCG/D5%-WATER 100 ML IV PRN ×4 (04:16→22:16)
[2020-07-29] MEDS: MetroNIDAZOLE 500 MG/NACL 100 ML IV SCH ×3 (04:55→22:15)
[2020-07-29 05:58] LABS: ALBUMIN 1.6 g/dL (3.4-5.0); ALKALINE PHOSPHATASE 135 U/L (46-116); ANION GAP 6 mmol/L (8-16); BILIRUBIN,TOTAL 0.3 mg/dL (0.1-1.0); CALCIUM, TOTAL 7.8 mg/dL (8.8-10.5); CARBON DIOXIDE 29 mmol/L (22-29); CHLORIDE 103 mmol/L (98-107); CREATININE 0.45 mg/dL (0.60-1.30); GLUCOSE,RANDOM 135 mg/dL (70-110); POTASSIUM 3.3 mmol/L (3.5-5.1); SODIUM SERUM 138 mmol/L (136-145); UREA NITROGEN, BLOOD 24 mg/dL (7-18)
[2020-07-29 06:08] LABS: BASOPHILS % (AUTO) 0.4 % (0.0-2.0); EOSINOPHILS % (AUTO) 3.2 % (1.0-6.0); HEMATOCRIT 21.9 % (36-46); LYMPHOCYTES # (AUTO) 1.3 K/uL (1.0-4.8); LYMPHOCYTES % (AUTO) 11.4 % (22.0-44.0); MEAN CORPUSCULAR HGB CONC 32.7 G/dL (31.0-37.0); MEAN CORPUSCULAR VOLUME 92 fL (80-100); MONOCYTES # (AUTO) 0.7 K/uL (0.1-1.0); MONOCYTES % (AUTO) 6.4 % (2.0-9.0); NEUTROPHILS # (AUTO) 8.9 K/uL (1.8-7.7); NEUTROPHILS % (AUTO) 78.6 % (40.0-70.0); PLATELET COUNT (AUTO) 211 K/uL (150-450); RED BLOOD CELL COUNT(AUTO) 2.38 MIL/uL (4.00-5.20); RED CELL DISTRIBUTION WIDTH 15.1 % (11.5-14.5)
[2020-07-29 06:11] LABS: HEMOGLOBIN 7.2 g/dL (12.0-16.0)
[2020-07-29 06:17] LABS: GLOMERULAR FILTR. RATE CALC > 60 mL/min (>60)
[2020-07-29] MEDS: MIDAZOLAM HCL 100 MG in DEXTROSE 5%-WATER 180 ML IV PRN (06:22)
[2020-07-29 06:40] LABS: ALANINE AMINOTRANSFERASE 48 U/L (12-78); ASPARTATE AMINOTRANSFERASE 23 U/L (15-37)
[2020-07-29 08:00] VITALS: BP 97/40
[2020-07-29] MEDS: MULTIVITAMINS WITH MINERALS, THERAPEUTIC 15 ML UDCUP NG SCH (08:55)
[2020-07-29] MEDS: POTASSIUM CHL 10 MEQ/WATER 50 ML IV PRN ×3 (08:55→14:47)
[2020-07-29] MEDS: DIAZEPAM 5 MG TABLET PO SCH ×2 (08:56→20:42)
[2020-07-29] MEDS: CHOLECALCIFEROL (VIT D3) 1,000 UNITS [25 MCG] TABLET PO SCH (08:56)
[2020-07-29] MEDS: ASCORBIC ACID 500 MG TABLET PO SCH ×2 (08:57→20:42)
[2020-07-29] MEDS: ZINC SULFATE 220 MG CAPSULE PO SCH ×2 (08:57→20:42)
[2020-07-29] MEDS: ASPIRIN 81 MG CHEWABLE TABLET PO SCH (08:57)
[2020-07-29] MEDS: DOCUSATE SODIUM 100 MG CAPSULE PO SCH ×2 (08:58→20:42)
[2020-07-29] MEDS: DEXAMETHASONE SOD PHOS 4 MG/ML VIAL IVP SCH (08:58)
[2020-07-29] MEDS: PANTOPRAZOLE SODIUM 40 MG/VIAL IVP SCH ×2 (09:01→20:42)
[2020-07-29] MEDS: POLYETHYLENE GLYCOL 3350 17 GM PACKET PO SCH (09:01)
[2020-07-29] MEDS: AMINO ACIDS/PROTEIN HYDROLYS 30 ML TUBE PO SCH ×3 (09:46→17:54)
[2020-07-29 12:00] VITALS: BP 175/82
[2020-07-29 16:00] VITALS: BP 149/65
[2020-07-29 20:00] VITALS: BP 109/56
[2020-07-30] VITALS: BP 139/59
[2020-07-30] MEDS: METOCLOPRAMIDE HCL 5 MG/ML 2 ML VIAL IVP SCH ×4 (00:07→17:36)
[2020-07-30] MEDS: HydrALAZINE HCL 50 MG TABLET PO SCH ×4 (00:07→17:35)
[2020-07-30] MEDS: HydrALAZINE HCL 20 MG/ML VIAL IVP PRN ×2 (00:07→12:17)
[2020-07-30] MEDS ORDERED: SODIUM CHLORIDE 0.9% 250 ML IV ONE (00:13)
[2020-07-30 04:00] VITALS: BP 139/63
[2020-07-30] MEDS: MetroNIDAZOLE 500 MG/NACL 100 ML IV SCH ×3 (05:11→22:03)
[2020-07-30] MEDS: FentaNYL CIT 1000MCG/D5%-WATER 100 ML IV PRN ×4 (06:00→23:18)
[2020-07-30] MEDS: MIDAZOLAM HCL 100 MG in DEXTROSE 5%-WATER 180 ML IV PRN (06:00)
[2020-07-30 06:21] LABS: BASOPHILS % (AUTO) 0.4 % (0.0-2.0); EOSINOPHILS % (AUTO) 2.3 % (1.0-6.0); HEMATOCRIT 25.8 % (36-46); HEMOGLOBIN 8.4 g/dL (12.0-16.0); LYMPHOCYTES # (AUTO) 1.7 K/uL (1.0-4.8); LYMPHOCYTES % (AUTO) 16.3 % (22.0-44.0); MEAN CORPUSCULAR HGB CONC 32.5 G/dL (31.0-37.0); MEAN CORPUSCULAR VOLUME 93 fL (80-100); MONOCYTES # (AUTO) 0.9 K/uL (0.1-1.0); MONOCYTES % (AUTO) 8.6 % (2.0-9.0); NEUTROPHILS # (AUTO) 7.5 K/uL (1.8-7.7); NEUTROPHILS % (AUTO) 72.4 % (40.0-70.0); PLATELET COUNT (AUTO) 260 K/uL (150-450); RED BLOOD CELL COUNT(AUTO) 2.78 MIL/uL (4.00-5.20); RED CELL DISTRIBUTION WIDTH 15.6 % (11.5-14.5)
[2020-07-30 06:42] LABS: ALANINE AMINOTRANSFERASE 51 U/L (12-78); ALBUMIN 1.9 g/dL (3.4-5.0); ALKALINE PHOSPHATASE 161 U/L (46-116); ANION GAP 3 mmol/L (8-16); ASPARTATE AMINOTRANSFERASE 31 U/L (15-37); BILIRUBIN,TOTAL 0.4 mg/dL (0.1-1.0); CALCIUM, TOTAL 8.5 mg/dL (8.8-10.5); CARBON DIOXIDE 32 mmol/L (22-29); CHLORIDE 106 mmol/L (98-107); CREATININE 0.27 mg/dL (0.60-1.30); GLUCOSE,RANDOM 95 mg/dL (70-110); POTASSIUM 3.8 mmol/L (3.5-5.1); SODIUM SERUM 141 mmol/L (136-145); TOTAL PROTEIN, SERUM 5.8 g/dL (6.4-8.2); UREA NITROGEN, BLOOD 23 mg/dL (7-18)
[2020-07-30 07:03] LABS: GLOMERULAR FILTR. RATE CALC > 60 mL/min (>60)
[2020-07-30] MEDS: MULTIVITAMINS WITH MINERALS, THERAPEUTIC 15 ML UDCUP NG SCH (07:46)
[2020-07-30] MEDS: ASPIRIN 81 MG CHEWABLE TABLET PO SCH (07:46)
[2020-07-30] MEDS: POLYETHYLENE GLYCOL 3350 17 GM PACKET PO SCH (07:46)
[2020-07-30] MEDS: DOCUSATE SODIUM 100 MG CAPSULE PO SCH ×2 (07:46→20:07)
[2020-07-30] MEDS: ASCORBIC ACID 500 MG TABLET PO SCH ×2 (07:47→20:08)
[2020-07-30] MEDS: CHOLECALCIFEROL (VIT D3) 1,000 UNITS [25 MCG] TABLET PO SCH (07:47)
[2020-07-30] MEDS: DIAZEPAM 5 MG TABLET PO SCH ×2 (07:47→20:11)
[2020-07-30] MEDS: HEPARIN SODIUM,PORCINE 5,000 UNITS/ML VIAL IVP PRN (07:51)
[2020-07-30] MEDS: AMINO ACIDS/PROTEIN HYDROLYS 30 ML TUBE PO SCH ×3 (08:00→17:36)
[2020-07-30] MEDS: PANTOPRAZOLE SODIUM 40 MG/VIAL IVP SCH ×2 (10:33→20:07)
[2020-07-30] MEDS: DEXAMETHASONE SOD PHOS 4 MG/ML VIAL IVP SCH (10:33)
[2020-07-30] MEDS: ZINC SULFATE 220 MG CAPSULE PO SCH ×2 (10:35→20:07)
[2020-07-30 12:00] VITALS: BP 198/93
[2020-07-30] MEDS: LORazepam 2 MG/ML VIAL IVP PRN ×2 (13:50→20:46)
[2020-07-30 16:00] VITALS: BP 123/60
[2020-07-30] MEDS: HEPARIN SODIUM 25000 UNITS/D5W 250 ML IV PRN (16:28)
[2020-07-30 20:00] VITALS: BP 106/53
[2020-07-30] MEDS: ACETAMINOPHEN 325 MG TABLET PO PRN (20:07)
[2020-07-31] VITALS: BP 123/64
[2020-07-31] MEDS: HydrALAZINE HCL 50 MG TABLET PO SCH ×4 (00:22→18:18)
[2020-07-31] MEDS: METOCLOPRAMIDE HCL 5 MG/ML 2 ML VIAL IVP SCH ×4 (00:22→18:18)
[2020-07-31] MEDS: LORazepam 2 MG/ML VIAL IVP PRN ×3 (01:01→21:02)
[2020-07-31] MEDS: FentaNYL CIT 1000MCG/D5%-WATER 100 ML IV PRN ×3 (03:18→18:18)
[2020-07-31 04:00] VITALS: BP 123/64
[2020-07-31] MEDS: MIDAZOLAM HCL 100 MG in DEXTROSE 5%-WATER 180 ML IV PRN (04:20)
[2020-07-31] MEDS: MetroNIDAZOLE 500 MG/NACL 100 ML IV SCH ×3 (05:50→21:02)
[2020-07-31 05:51] LABS: BASOPHILS % (AUTO) 0.4 % (0.0-2.0); EOSINOPHILS % (AUTO) 2.9 % (1.0-6.0); HEMATOCRIT 23.9 % (36-46); HEMOGLOBIN 7.9 g/dL (12.0-16.0); LYMPHOCYTES # (AUTO) 1.6 K/uL (1.0-4.8); LYMPHOCYTES % (AUTO) 19.4 % (22.0-44.0); MEAN CORPUSCULAR HEMOGLOBIN 30.5 pg (26.0-34.0); MEAN CORPUSCULAR HGB CONC 32.9 G/dL (31.0-37.0); MEAN CORPUSCULAR VOLUME 93 fL (80-100); MONOCYTES # (AUTO) 0.6 K/uL (0.1-1.0); MONOCYTES % (AUTO) 7.3 % (2.0-9.0); NEUTROPHILS # (AUTO) 5.9 K/uL (1.8-7.7); PLATELET COUNT (AUTO) 236 K/uL (150-450); RED BLOOD CELL COUNT(AUTO) 2.58 MIL/uL (4.00-5.20); RED CELL DISTRIBUTION WIDTH 15.7 % (11.5-14.5)
[2020-07-31 06:24] LABS: ALANINE AMINOTRANSFERASE 58 U/L (12-78); ALBUMIN 1.8 g/dL (3.4-5.0); ALKALINE PHOSPHATASE 161 U/L (46-116); ANION GAP 4 mmol/L (8-16); ASPARTATE AMINOTRANSFERASE 34 U/L (15-37); BILIRUBIN,TOTAL 0.5 mg/dL (0.1-1.0); CALCIUM, TOTAL 8.2 mg/dL (8.8-10.5); CARBON DIOXIDE 33 mmol/L (22-29); CHLORIDE 104 mmol/L (98-107); CREATININE 0.36 mg/dL (0.60-1.30); GLUCOSE,RANDOM 96 mg/dL (70-110); POTASSIUM 3.4 mmol/L (3.5-5.1); SODIUM SERUM 141 mmol/L (136-145); TOTAL PROTEIN, SERUM 5.6 g/dL (6.4-8.2); UREA NITROGEN, BLOOD 22 mg/dL (7-18)
[2020-07-31 06:27] LABS: GLOMERULAR FILTR. RATE CALC > 60 mL/min (>60)
[2020-07-31] MEDS: AMINO ACIDS/PROTEIN HYDROLYS 30 ML TUBE PO SCH (07:51)
[2020-07-31] MEDS: POTASSIUM CHL 10 MEQ/WATER 50 ML IV PRN ×3 (07:51→12:05)
[2020-07-31] MEDS: CHOLECALCIFEROL (VIT D3) 1,000 UNITS [25 MCG] TABLET PO SCH (07:52)
[2020-07-31] MEDS: DEXAMETHASONE SOD PHOS 4 MG/ML VIAL IVP SCH (07:52)
[2020-07-31] MEDS: ASPIRIN 81 MG CHEWABLE TABLET PO SCH (07:52)
[2020-07-31] MEDS: MULTIVITAMINS WITH MINERALS, THERAPEUTIC 15 ML UDCUP NG SCH (07:53)
[2020-07-31] MEDS: ZINC SULFATE 220 MG CAPSULE PO SCH ×2 (07:53→20:26)
[2020-07-31] MEDS: DIAZEPAM 5 MG TABLET PO SCH ×2 (07:53→20:26)
[2020-07-31] MEDS: DOCUSATE SODIUM 100 MG CAPSULE PO SCH ×2 (07:53→20:26)
[2020-07-31] MEDS: ASCORBIC ACID 500 MG TABLET PO SCH ×2 (07:53→20:26)
[2020-07-31] MEDS: PANTOPRAZOLE SODIUM 40 MG/VIAL IVP SCH ×2 (07:54→20:26)
[2020-07-31 08:00] VITALS: BP 122/54
[2020-07-31] MEDS: POLYETHYLENE GLYCOL 3350 17 GM PACKET PO SCH (09:00)
[2020-07-31] MEDS: HydrALAZINE HCL 20 MG/ML VIAL IVP PRN ×2 (10:23→16:56)
[2020-07-31 12:00] VITALS: BP 190/91
[2020-07-31] MEDS: ISOSORBIDE MONONITRATE 30 MG ER TABLET PO SCH (13:55)
[2020-07-31] MEDS: ACETAMINOPHEN 325 MG TABLET PO PRN (13:56)
[2020-07-31 16:00] VITALS: BP 123/54
[2020-07-31 20:00] VITALS: BP 183/91
[2020-08-01] VITALS: BP 126/54
[2020-08-01] MEDS: METOCLOPRAMIDE HCL 5 MG/ML 2 ML VIAL IVP SCH ×4 (00:07→17:25)
[2020-08-01] MEDS: FentaNYL CIT 1000MCG/D5%-WATER 100 ML IV PRN ×4 (02:42→22:52)
[2020-08-01 04:00] VITALS: BP 189/78
[2020-08-01] MEDS: LORazepam 2 MG/ML VIAL IVP PRN ×2 (04:02→09:13)
[2020-08-01 05:48] LABS: BASOPHILS % (AUTO) 0.5 % (0.0-2.0); EOSINOPHILS % (AUTO) 2.8 % (1.0-6.0); HEMATOCRIT 28.1 % (36-46); LYMPHOCYTES # (AUTO) 2.1 K/uL (1.0-4.8); LYMPHOCYTES % (AUTO) 18.1 % (22.0-44.0); MEAN CORPUSCULAR HEMOGLOBIN 30.1 pg (26.0-34.0); MEAN CORPUSCULAR HGB CONC 32.1 G/dL (31.0-37.0); MEAN CORPUSCULAR VOLUME 94 fL (80-100); MONOCYTES # (AUTO) 0.8 K/uL (0.1-1.0); MONOCYTES % (AUTO) 7.5 % (2.0-9.0); NEUTROPHILS # (AUTO) 8.1 K/uL (1.8-7.7); NEUTROPHILS % (AUTO) 71.1 % (40.0-70.0); PLATELET COUNT (AUTO) 289 K/uL (150-450); RED CELL DISTRIBUTION WIDTH 16.4 % (11.5-14.5)
[2020-08-01 06:05] LABS: ALANINE AMINOTRANSFERASE 65 U/L (12-78); ALBUMIN 2.2 g/dL (3.4-5.0); ALKALINE PHOSPHATASE 169 U/L (46-116); ANION GAP 5 mmol/L (8-16); ASPARTATE AMINOTRANSFERASE 40 U/L (15-37); BILIRUBIN,TOTAL 0.6 mg/dL (0.1-1.0); CALCIUM, TOTAL 8.7 mg/dL (8.8-10.5); CARBON DIOXIDE 32 mmol/L (22-29); CHLORIDE 103 mmol/L (98-107); CREATININE 0.35 mg/dL (0.60-1.30); GLUCOSE,RANDOM 87 mg/dL (70-110); INR 1.1 (0.9-1.1); POTASSIUM 3.5 mmol/L (3.5-5.1); PROTHROMBIN TIME 11.8 SEC (9.4-11.6); SODIUM SERUM 140 mmol/L (136-145); TOTAL PROTEIN, SERUM 6.4 g/dL (6.4-8.2); UREA NITROGEN, BLOOD 19 mg/dL (7-18)
[2020-08-01 06:08] LABS: GLOMERULAR FILTR. RATE CALC > 60 mL/min (>60)
[2020-08-01] MEDS: HydrALAZINE HCL 50 MG TABLET PO SCH ×5 (06:16→17:28)
[2020-08-01] MEDS: MetroNIDAZOLE 500 MG/NACL 100 ML IV SCH ×3 (06:17→21:19)
[2020-08-01 08:00] VITALS: BP 135/59
[2020-08-01] MEDS: DIAZEPAM 5 MG TABLET PO SCH ×2 (08:11→21:18)
[2020-08-01] MEDS: DEXAMETHASONE SOD PHOS 4 MG/ML VIAL IVP SCH (08:12)
[2020-08-01] MEDS: PROPOFOL 1000 MG/ISO-OSM 100 ML IV PRN ×2 (08:12→17:30)
[2020-08-01] MEDS: DOCUSATE SODIUM 100 MG CAPSULE PO SCH ×2 (08:13→21:18)
[2020-08-01] MEDS: PANTOPRAZOLE SODIUM 40 MG/VIAL IVP SCH ×2 (08:13→21:18)
[2020-08-01] MEDS: ISOSORBIDE MONONITRATE 30 MG ER TABLET PO SCH (08:13)
[2020-08-01] MEDS: ASPIRIN 81 MG CHEWABLE TABLET PO SCH (08:13)
[2020-08-01] MEDS: MULTIVITAMINS WITH MINERALS, THERAPEUTIC 15 ML UDCUP NG SCH (08:13)
[2020-08-01] MEDS: ASCORBIC ACID 500 MG TABLET PO SCH ×2 (08:14→21:18)
[2020-08-01] MEDS: ZINC SULFATE 220 MG CAPSULE PO SCH ×2 (08:14→21:18)
[2020-08-01] MEDS: CHOLECALCIFEROL (VIT D3) 1,000 UNITS [25 MCG] TABLET PO SCH (08:14)
[2020-08-01] MEDS: POLYETHYLENE GLYCOL 3350 17 GM PACKET PO SCH (08:15)
[2020-08-01] MEDS: MIDAZOLAM HCL 100 MG in DEXTROSE 5%-WATER 180 ML IV PRN (09:08)
[2020-08-01] MEDS ORDERED: ROCURONIUM BROMIDE 10 MG/ML 5 ML VIAL IVP ONE (10:45)
[2020-08-01 11:54] LABS: GLUCOSE,POINT OF CARE 85 MG/DL (70-110)
[2020-08-01 12:00] VITALS: BP 129/56
[2020-08-01] MEDS ORDERED: SODIUM CHLORIDE 0.9% 250 ML IV ONE (12:35)
[2020-08-01 12:38] LABS: APPEARANCE,URINE CLOUDY (CLEAR); BILIRUBIN,URINE NEGATIVE (NEGATIVE); GLUCOSE, URINE (UA) NEGATIVE (NEGATIVE); KETONES,URINE NEGATIVE (NEGATIVE); LEUKOCYTE ESTERASE ,URINE NEGATIVE (NEGATIVE); NITRATE,URINE NEGATIVE (NEGATIVE); OCCULT BLOOD,URINE NEGATIVE (NEGATIVE); PROTEIN,URINE NEGATIVE (NEGATIVE); UROBILINOGEN,URINE 0.2 mg/dL (<=1.0)
[2020-08-01 12:56] LABS: BACTERIA,URINE None Seen /HPF (None Seen); RBC,URINE 0-2 /HPF (0-2); WBC,URINE 0-2 /HPF (0-5)
[2020-08-01 12:57] LABS: CALCIUM OXALATE CRYSTALS,UR Rare /LPF (None Seen); YEAST,URINE Moderate /HPF (None Seen)
[2020-08-01] MEDS: NOREPINEPHRINE 4 MG/D5%-WATER 250 ML IV PRN (13:55)
[2020-08-01 16:00] VITALS: BP 128/57
[2020-08-01] MEDS: HEPARIN SODIUM 25000 UNITS/D5W 250 ML IV PRN (16:30)
[2020-08-01 20:00] VITALS: BP 129/60
[2020-08-02] VITALS: BP 126/54
[2020-08-02] MEDS: METOCLOPRAMIDE HCL 5 MG/ML 2 ML VIAL IVP SCH ×4 (01:03→18:12)
[2020-08-02] MEDS: ACETAMINOPHEN 325 MG TABLET PO PRN ×2 (01:54→08:53)
[2020-08-02 04:00] VITALS: BP 146/95
[2020-08-02 05:48] LABS: BASOPHILS % (AUTO) 0.4 % (0.0-2.0); EOSINOPHILS % (AUTO) 3.5 % (1.0-6.0); HEMATOCRIT 23.7 % (36-46); HEMOGLOBIN 7.7 g/dL (12.0-16.0); LYMPHOCYTES # (AUTO) 2.1 K/uL (1.0-4.8); LYMPHOCYTES % (AUTO) 23.1 % (22.0-44.0); MEAN CORPUSCULAR HEMOGLOBIN 30.8 pg (26.0-34.0); MEAN CORPUSCULAR HGB CONC 32.6 G/dL (31.0-37.0); MEAN CORPUSCULAR VOLUME 94 fL (80-100); MONOCYTES # (AUTO) 0.6 K/uL (0.1-1.0); MONOCYTES % (AUTO) 6.3 % (2.0-9.0); NEUTROPHILS # (AUTO) 6.1 K/uL (1.8-7.7); NEUTROPHILS % (AUTO) 66.7 % (40.0-70.0); PLATELET COUNT (AUTO) 246 K/uL (150-450); RED BLOOD CELL COUNT(AUTO) 2.51 MIL/uL (4.00-5.20); RED CELL DISTRIBUTION WIDTH 16.6 % (11.5-14.5)
[2020-08-02] MEDS: HydrALAZINE HCL 50 MG TABLET PO SCH ×4 (06:00→18:13)
[2020-08-02] MEDS: MetroNIDAZOLE 500 MG/NACL 100 ML IV SCH (06:08)
[2020-08-02] MEDS: FentaNYL CIT 1000MCG/D5%-WATER 100 ML IV PRN ×2 (06:08→14:09)
[2020-08-02 06:18] LABS: ALANINE AMINOTRANSFERASE 50 U/L (12-78); ALBUMIN 1.7 g/dL (3.4-5.0); ALKALINE PHOSPHATASE 137 U/L (46-116); ANION GAP 5 mmol/L (8-16); ASPARTATE AMINOTRANSFERASE 32 U/L (15-37); BILIRUBIN,TOTAL 0.4 mg/dL (0.1-1.0); CALCIUM, TOTAL 8.1 mg/dL (8.8-10.5); CARBON DIOXIDE 32 mmol/L (22-29); CHLORIDE 103 mmol/L (98-107); CREATININE 0.41 mg/dL (0.60-1.30); GLUCOSE,RANDOM 134 mg/dL (70-110); POTASSIUM 3.3 mmol/L (3.5-5.1); SODIUM SERUM 140 mmol/L (136-145); TOTAL PROTEIN, SERUM 5.3 g/dL (6.4-8.2); UREA NITROGEN, BLOOD 17 mg/dL (7-18)
[2020-08-02 06:19] LABS: GLOMERULAR FILTR. RATE CALC > 60 mL/min (>60)
[2020-08-02 08:00] VITALS: BP 116/52
[2020-08-02] MEDS: DEXAMETHASONE SOD PHOS 4 MG/ML VIAL IVP SCH (08:54)
[2020-08-02] MEDS: ZINC SULFATE 220 MG CAPSULE PO SCH ×2 (08:54→20:22)
[2020-08-02] MEDS: PANTOPRAZOLE SODIUM 40 MG/VIAL IVP SCH ×2 (08:54→20:22)
[2020-08-02] MEDS: ASCORBIC ACID 500 MG TABLET PO SCH ×2 (08:54→20:22)
[2020-08-02] MEDS: CHOLECALCIFEROL (VIT D3) 1,000 UNITS [25 MCG] TABLET PO SCH (08:54)
[2020-08-02] MEDS: ASPIRIN 81 MG CHEWABLE TABLET PO SCH (08:54)
[2020-08-02] MEDS: POLYETHYLENE GLYCOL 3350 17 GM PACKET PO SCH (08:55)
[2020-08-02] MEDS: DOCUSATE SODIUM 100 MG CAPSULE PO SCH ×2 (08:55→20:22)
[2020-08-02] MEDS: DIAZEPAM 5 MG TABLET PO SCH ×2 (08:55→20:22)
[2020-08-02] MEDS: ISOSORBIDE MONONITRATE 30 MG ER TABLET PO SCH (08:55)
[2020-08-02] MEDS: MULTIVITAMINS WITH MINERALS, THERAPEUTIC 15 ML UDCUP NG SCH (08:55)
[2020-08-02] MEDS: POTASSIUM CHL 10 MEQ/WATER 50 ML IV PRN ×3 (10:55→13:12)
[2020-08-02] MEDS: MIDAZOLAM HCL 100 MG in DEXTROSE 5%-WATER 180 ML IV PRN (10:56)
[2020-08-02] MEDS: LORazepam 2 MG/ML VIAL IVP PRN ×2 (11:39→14:55)
[2020-08-02 11:57] LABS: ABG A-A DIFF O2 233.5 mmHg (10-20.0); ABG CARBOXYHEMOGLOBIN 1.5 % (0.0-1.5); ABG HCO3 29.2 mmol/L (22.0-26.0); ABG METHEMOGLOBIN 0.3 % (0.0-1.5); ABG OXYGEN CONTENT 14.8 mL/dL (15.0-23.0); ABG OXYHEMOGLOBIN 92.3 % (94.0-100.0); ABG PCO2 46 mmHg (35-45); ABG PH 7.439 (7.35-7.450); ABG TOTAL HEMOGLOBIN 11.4 G/dL (12.0-18.0); PO2, ARTERIAL BG 71.2 mmHg (75.0-83.0); SOURCE, BLOOD GAS ARTERIAL; TEMPERATURE, FAHRENHEIT, BG 99.3 FAHREN (96.0-98.6)
[2020-08-02 12:00] VITALS: BP 152/70
[2020-08-02 12:13] LABS: SITE, BLOOD GAS RT RADIAL
[2020-08-02 12:14] LABS: INSPIRATORY TIME, BG 0.8 SEC; O2 DEVICE,BLOOD GAS VENTILATOR (ROOM AIR); PEEP,BG 5 cm H2O; VENT MODE, BG Press. Control Vent (ROOM AIR); VT, ABG 420 ml
[2020-08-02] MEDS: HydrALAZINE HCL 20 MG/ML VIAL IVP PRN (13:31)
[2020-08-02 16:00] VITALS: BP 158/75
[2020-08-02] MEDS: CefTAZidime PENTAHYDRATE 2 GM in DEXTROSE 5%-WATER 50 ML IV SCH (18:12)
[2020-08-02 20:00] VITALS: BP 110/52
[2020-08-03] VITALS: BP 171/77
[2020-08-03] MEDS: FentaNYL CIT 1000MCG/D5%-WATER 100 ML IV PRN ×4 (00:07→22:26)
[2020-08-03] MEDS: CefTAZidime PENTAHYDRATE 2 GM in DEXTROSE 5%-WATER 50 ML IV SCH ×3 (00:07→15:55)
[2020-08-03] MEDS: METOCLOPRAMIDE HCL 5 MG/ML 2 ML VIAL IVP SCH ×4 (00:07→17:10)
[2020-08-03] MEDS: HydrALAZINE HCL 20 MG/ML VIAL IVP PRN ×2 (00:08→05:38)
[2020-08-03] MEDS: HydrALAZINE HCL 50 MG TABLET PO SCH ×4 (00:38→17:11)
[2020-08-03 04:00] VITALS: BP 106/47
[2020-08-03 07:50] LABS: BASOPHILS % (AUTO) 0.4 % (0.0-2.0); EOSINOPHILS % (AUTO) 2.6 % (1.0-6.0); HEMOGLOBIN 8.8 g/dL (12.0-16.0); LYMPHOCYTES # (AUTO) 1.4 K/uL (1.0-4.8); LYMPHOCYTES % (AUTO) 12.1 % (22.0-44.0); MEAN CORPUSCULAR HEMOGLOBIN 30.5 pg (26.0-34.0); MEAN CORPUSCULAR HGB CONC 32.5 G/dL (31.0-37.0); MEAN CORPUSCULAR VOLUME 94 fL (80-100); MONOCYTES # (AUTO) 0.6 K/uL (0.1-1.0); MONOCYTES % (AUTO) 5.3 % (2.0-9.0); NEUTROPHILS # (AUTO) 9.3 K/uL (1.8-7.7); NEUTROPHILS % (AUTO) 79.6 % (40.0-70.0); PLATELET COUNT (AUTO) 270 K/uL (150-450); RED BLOOD CELL COUNT(AUTO) 2.88 MIL/uL (4.00-5.20); RED CELL DISTRIBUTION WIDTH 17.5 % (11.5-14.5)
[2020-08-03 08:12] LABS: ALANINE AMINOTRANSFERASE 50 U/L (12-78); ALBUMIN 2.1 g/dL (3.4-5.0); ALKALINE PHOSPHATASE 139 U/L (46-116); ANION GAP 8 mmol/L (8-16); ASPARTATE AMINOTRANSFERASE 23 U/L (15-37); BILIRUBIN,TOTAL 0.5 mg/dL (0.1-1.0); CALCIUM, TOTAL 8.7 mg/dL (8.8-10.5); CARBON DIOXIDE 29 mmol/L (22-29); CHLORIDE 103 mmol/L (98-107); CREATININE 0.36 mg/dL (0.60-1.30); GLUCOSE,RANDOM 133 mg/dL (70-110); POTASSIUM 3.6 mmol/L (3.5-5.1); SODIUM SERUM 140 mmol/L (136-145); TOTAL PROTEIN, SERUM 6.6 g/dL (6.4-8.2); UREA NITROGEN, BLOOD 20 mg/dL (7-18)
[2020-08-03 08:13] LABS: GLOMERULAR FILTR. RATE CALC > 60 mL/min (>60)
[2020-08-03] MEDS: PANTOPRAZOLE SODIUM 40 MG/VIAL IVP SCH ×2 (08:40→20:16)
[2020-08-03] MEDS: ASPIRIN 81 MG CHEWABLE TABLET PO SCH (08:41)
[2020-08-03] MEDS: DEXAMETHASONE SOD PHOS 4 MG/ML VIAL IVP SCH (08:42)
[2020-08-03] MEDS: ZINC SULFATE 220 MG CAPSULE PO SCH ×2 (08:42→20:17)
[2020-08-03] MEDS: MULTIVITAMINS WITH MINERALS, THERAPEUTIC 15 ML UDCUP NG SCH (08:42)
[2020-08-03] MEDS: ASCORBIC ACID 500 MG TABLET PO SCH ×2 (08:43→20:17)
[2020-08-03] MEDS: DOCUSATE SODIUM 100 MG CAPSULE PO SCH ×2 (08:43→20:19)
[2020-08-03] MEDS: DIAZEPAM 5 MG TABLET PO SCH ×3 (08:44→20:16)
[2020-08-03] MEDS: ISOSORBIDE MONONITRATE 30 MG ER TABLET PO SCH (08:44)
[2020-08-03] MEDS: CHOLECALCIFEROL (VIT D3) 1,000 UNITS [25 MCG] TABLET PO SCH (08:45)
[2020-08-03] MEDS: POLYETHYLENE GLYCOL 3350 17 GM PACKET PO SCH (09:00)
[2020-08-03] MEDS: POTASSIUM CHL 10 MEQ/WATER 50 ML IV PRN ×3 (11:29→18:34)
[2020-08-03] MEDS: MIDAZOLAM HCL 100 MG in DEXTROSE 5%-WATER 180 ML IV PRN (11:34)
[2020-08-03 12:00] VITALS: BP 144/68
[2020-08-03] MEDS: OxyCODONE HCL 5 MG IR TABLET PO SCH ×3 (12:18→20:19)
[2020-08-03 13:53] LABS: INR 1.1 (0.9-1.1)
[2020-08-03 18:02] VITALS: BP 126/62
[2020-08-03 20:00] VITALS: BP 159/85
[2020-08-03] MEDS: HEPARIN SODIUM 25000 UNITS/D5W 250 ML IV PRN (22:37)
[2020-08-04] VITALS: BP 150/65
[2020-08-04] MEDS: HydrALAZINE HCL 50 MG TABLET PO SCH ×5 (00:02→23:20)
[2020-08-04] MEDS: METOCLOPRAMIDE HCL 5 MG/ML 2 ML VIAL IVP SCH ×5 (00:03→23:19)
[2020-08-04] MEDS: MIDAZOLAM HCL 100 MG in DEXTROSE 5%-WATER 180 ML IV PRN (00:04)
[2020-08-04] MEDS: CefTAZidime PENTAHYDRATE 2 GM in DEXTROSE 5%-WATER 50 ML IV SCH ×4 (00:05→23:20)
[2020-08-04 04:00] VITALS: BP 167/73
[2020-08-04 05:21] LABS: BASOPHILS % (AUTO) 0.6 % (0.0-2.0); EOSINOPHILS % (AUTO) 1.8 % (1.0-6.0); HEMATOCRIT 27.7 % (36-46); HEMOGLOBIN 8.9 g/dL (12.0-16.0); LYMPHOCYTES # (AUTO) 1.4 K/uL (1.0-4.8); MEAN CORPUSCULAR HEMOGLOBIN 30.9 pg (26.0-34.0); MEAN CORPUSCULAR HGB CONC 32.1 G/dL (31.0-37.0); MEAN CORPUSCULAR VOLUME 96 fL (80-100); MONOCYTES # (AUTO) 0.6 K/uL (0.1-1.0); MONOCYTES % (AUTO) 6.3 % (2.0-9.0); NEUTROPHILS # (AUTO) 6.9 K/uL (1.8-7.7); NEUTROPHILS % (AUTO) 76.3 % (40.0-70.0); PLATELET COUNT (AUTO) 275 K/uL (150-450); RED BLOOD CELL COUNT(AUTO) 2.89 MIL/uL (4.00-5.20); RED CELL DISTRIBUTION WIDTH 17.8 % (11.5-14.5)
[2020-08-04 05:48] LABS: ANION GAP 7 mmol/L (8-16); CALCIUM, TOTAL 9.1 mg/dL (8.8-10.5); CARBON DIOXIDE 30 mmol/L (22-29); CHLORIDE 103 mmol/L (98-107); CREATININE 0.34 mg/dL (0.60-1.30); GLUCOSE,RANDOM 107 mg/dL (70-110); POTASSIUM 4.1 mmol/L (3.5-5.1); SODIUM SERUM 140 mmol/L (136-145); UREA NITROGEN, BLOOD 12 mg/dL (7-18)
[2020-08-04 06:08] LABS: GLOMERULAR FILTR. RATE CALC > 60 mL/min (>60)
[2020-08-04] MEDS ORDERED: ROCURONIUM BROMIDE 10 MG/ML 5 ML VIAL IVP ONE (06:15)
[2020-08-04 08:00] VITALS: BP 144/68
[2020-08-04] MEDS: FentaNYL CIT 1000MCG/D5%-WATER 100 ML IV PRN (08:16)
[2020-08-04] MEDS: ASCORBIC ACID 500 MG TABLET PO SCH ×2 (11:05→20:19)
[2020-08-04] MEDS: CHOLECALCIFEROL (VIT D3) 1,000 UNITS [25 MCG] TABLET PO SCH (11:06)
[2020-08-04] MEDS: ASPIRIN 81 MG CHEWABLE TABLET PO SCH (11:06)
[2020-08-04] MEDS: DOCUSATE SODIUM 100 MG CAPSULE PO SCH ×2 (11:06→20:20)
[2020-08-04] MEDS: OxyCODONE HCL 5 MG IR TABLET PO SCH ×4 (11:06→20:19)
[2020-08-04] MEDS: ZINC SULFATE 220 MG CAPSULE PO SCH ×2 (11:07→20:19)
[2020-08-04] MEDS: DIAZEPAM 5 MG TABLET PO SCH ×3 (11:07→20:19)
[2020-08-04] MEDS: ISOSORBIDE MONONITRATE 30 MG ER TABLET PO SCH (11:07)
[2020-08-04] MEDS: MULTIVITAMINS WITH MINERALS, THERAPEUTIC 15 ML UDCUP NG SCH (11:07)
[2020-08-04] MEDS: POLYETHYLENE GLYCOL 3350 17 GM PACKET PO SCH (11:08)
[2020-08-04] MEDS: PANTOPRAZOLE SODIUM 40 MG/VIAL IVP SCH ×2 (11:08→20:19)
[2020-08-04] MEDS: DEXAMETHASONE SOD PHOS 4 MG/ML VIAL IVP SCH (11:08)
[2020-08-04] MEDS: CASPOFUNGIN ACETATE 50 MG in SODIUM CHLORIDE 0.9% 250 ML IV SCH (11:09)
[2020-08-04 12:00] VITALS: BP 123/46
[2020-08-04] MEDS: LORazepam 2 MG/ML VIAL IVP PRN ×3 (13:33→23:19)
[2020-08-04] MEDS ORDERED: SODIUM CHLORIDE 0.9% 250 ML IV ONE (15:05)
[2020-08-04] MEDS: HEPARIN SODIUM,PORCINE 5,000 UNITS/ML VIAL SQ SCH ×2 (15:14→23:19)
[2020-08-04] MEDS: MORPHINE SULFATE 2 MG/ML SYRINGE IVP PRN (15:16)
[2020-08-04 16:00] VITALS: BP 161/76
[2020-08-04 20:00] VITALS: BP 154/75
[2020-08-04] MEDS: HydrALAZINE HCL 20 MG/ML VIAL IVP PRN (21:27)
[2020-08-05] VITALS (7 sets, daily range): BP systolic 112–149; BP diastolic 49–93
[2020-08-05] MEDS: MORPHINE SULFATE 2 MG/ML SYRINGE IVP PRN ×3 (00:34→08:20)
[2020-08-05] MEDS: LORazepam 2 MG/ML VIAL IVP PRN ×6 (01:00→11:04)
[2020-08-05 05:40] LABS: ANION GAP 7 mmol/L (8-16); CARBON DIOXIDE 30 mmol/L (22-29); CHLORIDE 104 mmol/L (98-107); CREATININE 0.34 mg/dL (0.60-1.30); GLUCOSE,RANDOM 107 mg/dL (70-110); POTASSIUM 3.3 mmol/L (3.5-5.1); SODIUM SERUM 141 mmol/L (136-145); UREA NITROGEN, BLOOD 14 mg/dL (7-18)
[2020-08-05] MEDS: METOCLOPRAMIDE HCL 5 MG/ML 2 ML VIAL IVP SCH ×4 (05:40→23:54)
[2020-08-05] MEDS: HydrALAZINE HCL 50 MG TABLET PO SCH ×2 (05:40→11:42)
[2020-08-05 05:42] LABS: BASOPHILS % (AUTO) 2.1 % (0.0-2.0); EOSINOPHILS % (AUTO) 1.5 % (1.0-6.0); HEMATOCRIT 25.7 % (36-46); HEMOGLOBIN 8.7 g/dL (12.0-16.0); LYMPHOCYTES # (AUTO) 1.4 K/uL (1.0-4.8); LYMPHOCYTES % (AUTO) 13.1 % (22.0-44.0); MEAN CORPUSCULAR HEMOGLOBIN 30.6 pg (26.0-34.0); MEAN CORPUSCULAR HGB CONC 33.7 G/dL (31.0-37.0); MEAN CORPUSCULAR VOLUME 91 fL (80-100); MONOCYTES # (AUTO) 0.6 K/uL (0.1-1.0); MONOCYTES % (AUTO) 5.8 % (2.0-9.0); NEUTROPHILS # (AUTO) 8.4 K/uL (1.8-7.7); NEUTROPHILS % (AUTO) 77.5 % (40.0-70.0); PLATELET COUNT (AUTO) 260 K/uL (150-450); RED BLOOD CELL COUNT(AUTO) 2.83 MIL/uL (4.00-5.20); RED CELL DISTRIBUTION WIDTH 17.1 % (11.5-14.5)
[2020-08-05 05:46] LABS: GLOMERULAR FILTR. RATE CALC > 60 mL/min (>60)
[2020-08-05] MEDS: MULTIVITAMINS WITH MINERALS, THERAPEUTIC 15 ML UDCUP NG SCH (08:15)
[2020-08-05] MEDS: HYDROCODONE/CHLORPHEN POLIS 10-8 MG/5 ML ORAL.SYG PO PRN (08:16)
[2020-08-05] MEDS: ASPIRIN 81 MG CHEWABLE TABLET PO SCH (08:16)
[2020-08-05] MEDS: PANTOPRAZOLE SODIUM 40 MG/VIAL IVP SCH ×2 (08:17→20:52)
[2020-08-05] MEDS: HEPARIN SODIUM,PORCINE 5,000 UNITS/ML VIAL SQ SCH ×3 (08:17→23:55)
[2020-08-05] MEDS: DEXAMETHASONE SOD PHOS 4 MG/ML VIAL IVP SCH (08:18)
[2020-08-05] MEDS: DIAZEPAM 5 MG TABLET PO SCH ×3 (08:18→20:53)
[2020-08-05] MEDS: ISOSORBIDE MONONITRATE 30 MG ER TABLET PO SCH (08:19)
[2020-08-05] MEDS: ASCORBIC ACID 500 MG TABLET PO SCH ×2 (08:19→20:53)
[2020-08-05] MEDS: CHOLECALCIFEROL (VIT D3) 1,000 UNITS [25 MCG] TABLET PO SCH (08:19)
[2020-08-05] MEDS: CefTAZidime PENTAHYDRATE 2 GM in DEXTROSE 5%-WATER 50 ML IV SCH ×3 (08:22→23:54)
[2020-08-05] MEDS: DOCUSATE SODIUM 100 MG CAPSULE PO SCH ×2 (09:00→21:00)
[2020-08-05] MEDS: POLYETHYLENE GLYCOL 3350 17 GM PACKET PO SCH (09:00)
[2020-08-05] MEDS: CASPOFUNGIN ACETATE 50 MG in SODIUM CHLORIDE 0.9% 250 ML IV SCH (11:33)
[2020-08-05] MEDS: OxyCODONE HCL 5 MG IR TABLET PO SCH ×4 (11:33→20:53)
[2020-08-05] MEDS: ZINC SULFATE 220 MG CAPSULE PO SCH ×2 (11:34→20:55)
[2020-08-05] MEDS: ACETYLCYSTEINE 10% 100 MG/ML 4 ML NEB SOLUTION NEB SCH ×2 (14:17→20:41)
[2020-08-05] MEDS: IPRATROPIUM BROMIDE 0.5 MG/2.5 ML NEB SOLUTION NEB PRN (14:18)
[2020-08-05] MEDS: ALBUTEROL SULFATE 2.5 MG/0.5 ML NEB SOLUTION NEB PRN ×2 (14:18→20:41)
[2020-08-05] MEDS: ACETAMINOPHEN 325 MG TABLET PO PRN (21:35)
[2020-08-06] VITALS: BP_SYST 131; BP_SYST 166; BP_DIAS 54; BP_DIAS 88
[2020-08-06] MEDS ORDERED: SODIUM CHLORIDE 0.9% 250 ML IV ONE ×2 (00:46→20:42)
[2020-08-06] MEDS: ALBUTEROL SULFATE 2.5 MG/0.5 ML NEB SOLUTION NEB PRN ×3 (03:05→14:32)
[2020-08-06] MEDS: ACETYLCYSTEINE 10% 100 MG/ML 4 ML NEB SOLUTION NEB SCH ×4 (03:05→20:28)
[2020-08-06 04:00] VITALS: BP 166/88
[2020-08-06] MEDS: LORazepam 2 MG/ML VIAL IVP PRN ×3 (04:13→14:15)
[2020-08-06] MEDS: METOCLOPRAMIDE HCL 5 MG/ML 2 ML VIAL IVP SCH ×2 (05:33→11:25)
[2020-08-06] MEDS: HydrALAZINE HCL 50 MG TABLET PO SCH ×4 (05:33→17:19)
[2020-08-06 08:00] VITALS: BP 142/95
[2020-08-06] MEDS: HEPARIN SODIUM,PORCINE 5,000 UNITS/ML VIAL SQ SCH ×2 (08:07→16:29)
[2020-08-06] MEDS: DEXAMETHASONE SOD PHOS 4 MG/ML VIAL IVP SCH (08:07)
[2020-08-06] MEDS: CefTAZidime PENTAHYDRATE 2 GM in DEXTROSE 5%-WATER 50 ML IV SCH ×3 (08:07→23:57)
[2020-08-06] MEDS: PANTOPRAZOLE SODIUM 40 MG/VIAL IVP SCH ×2 (08:08→20:48)
[2020-08-06] MEDS: ASPIRIN 81 MG CHEWABLE TABLET PO SCH (08:08)
[2020-08-06] MEDS: MULTIVITAMINS WITH MINERALS, THERAPEUTIC 15 ML UDCUP NG SCH (08:08)
[2020-08-06] MEDS: ZINC SULFATE 220 MG CAPSULE PO SCH ×2 (08:08→20:50)
[2020-08-06] MEDS: ASCORBIC ACID 500 MG TABLET PO SCH ×2 (08:08→20:48)
[2020-08-06] MEDS: DIAZEPAM 5 MG TABLET PO SCH ×3 (08:09→20:48)
[2020-08-06] MEDS: OxyCODONE HCL 5 MG IR TABLET PO SCH ×4 (08:09→20:48)
[2020-08-06] MEDS: ISOSORBIDE MONONITRATE 30 MG ER TABLET PO SCH (08:09)
[2020-08-06] MEDS: CHOLECALCIFEROL (VIT D3) 1,000 UNITS [25 MCG] TABLET PO SCH (08:09)
[2020-08-06] MEDS: DOCUSATE SODIUM 100 MG CAPSULE PO SCH (08:10)
[2020-08-06] MEDS: POLYETHYLENE GLYCOL 3350 17 GM PACKET PO SCH (08:10)
[2020-08-06] MEDS: POTASSIUM CHL 10 MEQ/WATER 50 ML IV PRN ×3 (08:10→11:27)
[2020-08-06] MEDS: PROPOFOL 1000 MG/ISO-OSM 100 ML IV PRN (10:40)
[2020-08-06] MEDS: CASPOFUNGIN ACETATE 50 MG in SODIUM CHLORIDE 0.9% 250 ML IV SCH (11:24)
[2020-08-06 12:00] VITALS: BP 128/64
[2020-08-06] MEDS: ACETAMINOPHEN 325 MG TABLET PO PRN (14:16)
[2020-08-06] MEDS: MORPHINE SULFATE 2 MG/ML SYRINGE IVP PRN (14:35)
[2020-08-06 16:00] VITALS: BP 137/62
[2020-08-06] MEDS ORDERED: POLYETHYLENE GLYCOL 3350 17 GM PACKET PO PRN (17:15)
[2020-08-06] MEDS ORDERED: METOCLOPRAMIDE HCL 5 MG/ML 2 ML VIAL IVP PRN (17:15)
[2020-08-06] MEDS ORDERED: DOCUSATE SODIUM 100 MG CAPSULE PO PRN (17:15)
[2020-08-06 20:00] VITALS: BP 135/70
[2020-08-07] VITALS (7 sets, daily range): BP systolic 138–185; BP diastolic 57–109
[2020-08-07] MEDS: ACETYLCYSTEINE 10% 100 MG/ML 4 ML NEB SOLUTION NEB SCH ×4 (01:15→19:24)
[2020-08-07] MEDS: ALBUTEROL SULFATE 2.5 MG/0.5 ML NEB SOLUTION NEB PRN ×4 (01:15→19:25)
[2020-08-07] MEDS: MORPHINE SULFATE 2 MG/ML SYRINGE IVP PRN (02:30)
[2020-08-07 05:07] LABS: EOSINOPHILS % (AUTO) 3.5 % (1.0-6.0); HEMATOCRIT 25.9 % (36-46); HEMOGLOBIN 8.4 g/dL (12.0-16.0); LYMPHOCYTES # (AUTO) 2.5 K/uL (1.0-4.8); LYMPHOCYTES % (AUTO) 27.2 % (22.0-44.0); MEAN CORPUSCULAR HEMOGLOBIN 30.7 pg (26.0-34.0); MEAN CORPUSCULAR HGB CONC 32.4 G/dL (31.0-37.0); MEAN CORPUSCULAR VOLUME 95 fL (80-100); MONOCYTES # (AUTO) 0.5 K/uL (0.1-1.0); MONOCYTES % (AUTO) 5.7 % (2.0-9.0); NEUTROPHILS # (AUTO) 5.7 K/uL (1.8-7.7); NEUTROPHILS % (AUTO) 62.6 % (40.0-70.0); PLATELET COUNT (AUTO) 257 K/uL (150-450); RED BLOOD CELL COUNT(AUTO) 2.74 MIL/uL (4.00-5.20); RED CELL DISTRIBUTION WIDTH 17.8 % (11.5-14.5)
[2020-08-07] MEDS: HydrALAZINE HCL 50 MG TABLET PO SCH ×5 (05:37→23:51)
[2020-08-07 05:46] LABS: ALANINE AMINOTRANSFERASE 133 U/L (12-78); ALBUMIN 2.2 g/dL (3.4-5.0); ALKALINE PHOSPHATASE 137 U/L (46-116); ANION GAP 8 mmol/L (8-16); ASPARTATE AMINOTRANSFERASE 100 U/L (15-37); BILIRUBIN,TOTAL 0.5 mg/dL (0.1-1.0); CALCIUM, TOTAL 8.7 mg/dL (8.8-10.5); CARBON DIOXIDE 30 mmol/L (22-29); CHLORIDE 106 mmol/L (98-107); GLUCOSE,RANDOM 106 mg/dL (70-110); POTASSIUM 3.2 mmol/L (3.5-5.1); SODIUM SERUM 144 mmol/L (136-145); TOTAL PROTEIN, SERUM 6.6 g/dL (6.4-8.2); UREA NITROGEN, BLOOD 22 mg/dL (7-18)
[2020-08-07 05:48] LABS: GLOMERULAR FILTR. RATE CALC > 60 mL/min (>60)
[2020-08-07] MEDS: POTASSIUM CHL 10 MEQ/WATER 50 ML IV PRN ×3 (06:21→11:06)
[2020-08-07] MEDS ORDERED: SODIUM CHLORIDE 0.9% 500 ML IV ONE ×2 (06:22→15:15)
[2020-08-07] MEDS: IPRATROPIUM BROMIDE 0.5 MG/2.5 ML NEB SOLUTION NEB PRN ×2 (08:17→14:50)
[2020-08-07] MEDS: CefTAZidime PENTAHYDRATE 2 GM in DEXTROSE 5%-WATER 50 ML IV SCH (08:26)
[2020-08-07] MEDS: PANTOPRAZOLE SODIUM 40 MG/VIAL IVP SCH ×2 (08:27→20:48)
[2020-08-07] MEDS: CHOLECALCIFEROL (VIT D3) 1,000 UNITS [25 MCG] TABLET PO SCH (08:27)
[2020-08-07] MEDS: HEPARIN SODIUM,PORCINE 5,000 UNITS/ML VIAL SQ SCH ×4 (08:27→23:55)
[2020-08-07] MEDS: DIAZEPAM 5 MG TABLET PO SCH ×3 (08:27→20:48)
[2020-08-07] MEDS: ZINC SULFATE 220 MG CAPSULE PO SCH (08:27)
[2020-08-07] MEDS: ASCORBIC ACID 500 MG TABLET PO SCH (08:27)
[2020-08-07] MEDS: DEXAMETHASONE SOD PHOS 4 MG/ML VIAL IVP SCH (08:28)
[2020-08-07] MEDS: MULTIVITAMINS WITH MINERALS, THERAPEUTIC 15 ML UDCUP NG SCH (08:29)
[2020-08-07] MEDS: ASPIRIN 81 MG CHEWABLE TABLET PO SCH (08:29)
[2020-08-07] MEDS: OxyCODONE HCL 5 MG IR TABLET PO SCH ×4 (08:29→20:49)
[2020-08-07] MEDS: ISOSORBIDE MONONITRATE 30 MG ER TABLET PO SCH (08:30)
[2020-08-07] MEDS: CASPOFUNGIN ACETATE 50 MG in SODIUM CHLORIDE 0.9% 250 ML IV SCH (11:05)
[2020-08-07] MEDS: FentaNYL CIT 1000MCG/D5%-WATER 100 ML IV PRN (11:44)
[2020-08-07] MEDS: HydrALAZINE HCL 20 MG/ML VIAL IVP PRN (13:21)
[2020-08-07] MEDS: POTASSIUM CHL 10 MEQ/WATER 50 ML IV SCH ×4 (15:19→18:29)
[2020-08-07] MEDS: ACETAMINOPHEN 325 MG TABLET PO PRN (22:02)
[2020-08-08] VITALS (8 sets, daily range): BP systolic 108–166; BP diastolic 54–82
[2020-08-08] MEDS: ALBUTEROL SULFATE 2.5 MG/0.5 ML NEB SOLUTION NEB PRN ×3 (02:36→13:10)
[2020-08-08] MEDS: ACETYLCYSTEINE 10% 100 MG/ML 4 ML NEB SOLUTION NEB SCH ×4 (02:37→20:00)
[2020-08-08] MEDS: MORPHINE SULFATE 2 MG/ML SYRINGE IVP PRN ×2 (03:09)
[2020-08-08] MEDS: HydrALAZINE HCL 50 MG TABLET PO SCH ×3 (05:43→17:06)
[2020-08-08 05:55] LABS: ALANINE AMINOTRANSFERASE 170 U/L (12-78); ALBUMIN 2.4 g/dL (3.4-5.0); ALKALINE PHOSPHATASE 143 U/L (46-116); ANION GAP 8 mmol/L (8-16); ASPARTATE AMINOTRANSFERASE 105 U/L (15-37); BILIRUBIN,TOTAL 0.6 mg/dL (0.1-1.0); CALCIUM, TOTAL 9.4 mg/dL (8.8-10.5); CARBON DIOXIDE 28 mmol/L (22-29); CHLORIDE 103 mmol/L (98-107); CREATININE 0.36 mg/dL (0.60-1.30); GLUCOSE,RANDOM 94 mg/dL (70-110); POTASSIUM 3.9 mmol/L (3.5-5.1); SODIUM SERUM 139 mmol/L (136-145); TOTAL PROTEIN, SERUM 7.1 g/dL (6.4-8.2); UREA NITROGEN, BLOOD 22 mg/dL (7-18)
[2020-08-08 06:08] LABS: GLOMERULAR FILTR. RATE CALC > 60 mL/min (>60)
[2020-08-08] MEDS: IPRATROPIUM BROMIDE 0.5 MG/2.5 ML NEB SOLUTION NEB PRN ×2 (07:35→13:10)
[2020-08-08] MEDS: HEPARIN SODIUM,PORCINE 5,000 UNITS/ML VIAL SQ SCH ×2 (08:02→15:49)
[2020-08-08] MEDS: OxyCODONE HCL 5 MG IR TABLET PO SCH ×4 (08:02→21:00)
[2020-08-08] MEDS: ACETAMINOPHEN 325 MG TABLET PO PRN ×2 (08:02→12:10)
[2020-08-08] MEDS: MULTIVITAMINS WITH MINERALS, THERAPEUTIC 15 ML UDCUP NG SCH (08:02)
[2020-08-08] MEDS: DEXAMETHASONE SOD PHOS 4 MG/ML VIAL IVP SCH (08:03)
[2020-08-08] MEDS: ASPIRIN 81 MG CHEWABLE TABLET PO SCH (08:03)
[2020-08-08] MEDS: ISOSORBIDE MONONITRATE 30 MG ER TABLET PO SCH (08:03)
[2020-08-08] MEDS: PANTOPRAZOLE SODIUM 40 MG/VIAL IVP SCH ×2 (08:03→20:01)
[2020-08-08] MEDS: DIAZEPAM 5 MG TABLET PO SCH ×3 (08:03→20:01)
[2020-08-08] MEDS ORDERED: FLUCONAZOLE 400 MG/NACL ISOOSM 200 ML IV SCH (11:00)
[2020-08-09] MEDS: HEPARIN SODIUM,PORCINE 5,000 UNITS/ML VIAL SQ SCH ×4 (00:11→23:54)
[2020-08-09] MEDS: ACETYLCYSTEINE 10% 100 MG/ML 4 ML NEB SOLUTION NEB SCH ×4 (02:00→20:45)
[2020-08-09 04:31] VITALS: BP 138/60
[2020-08-09] MEDS: HydrALAZINE HCL 50 MG TABLET PO SCH ×5 (05:15→23:54)
[2020-08-09 06:55] LABS: ALANINE AMINOTRANSFERASE 278 U/L (12-78); ALBUMIN 2.4 g/dL (3.4-5.0); ALKALINE PHOSPHATASE 138 U/L (46-116); ANION GAP 9 mmol/L (8-16); ASPARTATE AMINOTRANSFERASE 169 U/L (15-37); BILIRUBIN,TOTAL 0.4 mg/dL (0.1-1.0); CALCIUM, TOTAL 9.4 mg/dL (8.8-10.5); CARBON DIOXIDE 26 mmol/L (22-29); CHLORIDE 104 mmol/L (98-107); CREATININE 0.46 mg/dL (0.60-1.30); GLUCOSE,RANDOM 111 mg/dL (70-110); POTASSIUM 3.9 mmol/L (3.5-5.1); SODIUM SERUM 139 mmol/L (136-145); UREA NITROGEN, BLOOD 27 mg/dL (7-18)
[2020-08-09 07:03] LABS: GLOMERULAR FILTR. RATE CALC > 60 mL/min (>60)
[2020-08-09 07:28] VITALS: BP 152/100
[2020-08-09] MEDS: PANTOPRAZOLE SODIUM 40 MG/VIAL IVP SCH ×2 (08:17→20:19)
[2020-08-09] MEDS: ASPIRIN 81 MG CHEWABLE TABLET PO SCH (08:17)
[2020-08-09] MEDS: MULTIVITAMINS WITH MINERALS, THERAPEUTIC 15 ML UDCUP NG SCH (08:17)
[2020-08-09] MEDS: DEXAMETHASONE SOD PHOS 4 MG/ML VIAL IVP SCH (08:18)
[2020-08-09] MEDS: DIAZEPAM 5 MG TABLET PO SCH ×3 (08:18→20:19)
[2020-08-09] MEDS: OxyCODONE HCL 5 MG IR TABLET PO SCH ×4 (08:18→20:20)
[2020-08-09] MEDS: ISOSORBIDE MONONITRATE 30 MG ER TABLET PO SCH (08:18)
[2020-08-09] MEDS: ALBUTEROL SULFATE 2.5 MG/0.5 ML NEB SOLUTION NEB PRN ×3 (08:43→20:45)
[2020-08-09 10:32] VITALS: BP 140/66
[2020-08-09] MEDS ORDERED: SODIUM CHLORIDE 0.9% 1,000 ML ONE (10:54)
[2020-08-09] MEDS: SODIUM CHLORIDE 0.9% 500 ML IV SCH (11:04)
[2020-08-09] MEDS: LORazepam 2 MG/ML VIAL IVP PRN (11:30)
[2020-08-09] MEDS: ACETAMINOPHEN 325 MG TABLET PO PRN (12:02)
[2020-08-09] MEDS: MORPHINE SULFATE 2 MG/ML SYRINGE IVP PRN (12:34)
[2020-08-09 12:51] LABS: ABG A-A DIFF O2 147.9 mmHg (10-20.0); ABG BASE EXCESS 1.1 mmol/L (-2.0-3.0); ABG CARBOXYHEMOGLOBIN 0.9 % (0.0-1.5); ABG HCO3 25.6 mmol/L (22.0-26.0); ABG METHEMOGLOBIN 0.3 % (0.0-1.5); ABG OXYGEN CONTENT 13.6 mL/dL (15.0-23.0); ABG OXYGEN SATURATION 96.2 % (95.0-98.0); ABG PCO2 38 mmHg (35-45); ABG PH 7.437 (7.35-7.450); ABG TOTAL HEMOGLOBIN 10.1 G/dL (12.0-18.0); PO2, ARTERIAL BG 91.6 mmHg (75.0-83.0); SOURCE, BLOOD GAS ARTERIAL; TEMPERATURE, FAHRENHEIT, BG 101.3 FAHREN (96.0-98.6)
[2020-08-09 12:55] LABS: O2 DEVICE,BLOOD GAS VENTILATOR (ROOM AIR); PEEP,BG 5 cm H2O; SITE, BLOOD GAS RT RADIAL; VT, ABG 425 ml
[2020-08-09] MEDS ORDERED: DEXTROSE 5%-WATER 50 ML IV ONE ×2 (13:15→17:00)
[2020-08-09] MEDS: DEXTROSE 5% IV SCH (13:24)
[2020-08-09] MEDS: WATER IV SCH (13:24)
[2020-08-09] MEDS: AMPHOTERICIN B LIPOSOME IV SCH (13:24)
[2020-08-09] MEDS: IPRATROPIUM BROMIDE 0.5 MG/2.5 ML NEB SOLUTION NEB PRN ×2 (13:36→20:45)
[2020-08-09 14:17] VITALS: BP 154/64
[2020-08-09 16:46] LABS: APPEARANCE,URINE CLOUDY (CLEAR); BILIRUBIN,URINE NEGATIVE (NEGATIVE); GLUCOSE, URINE (UA) NEGATIVE (NEGATIVE); KETONES,URINE NEGATIVE (NEGATIVE); LEUKOCYTE ESTERASE ,URINE TRACE (NEGATIVE); NITRATE,URINE NEGATIVE (NEGATIVE); OCCULT BLOOD,URINE LARGE (NEGATIVE); PROTEIN,URINE POS 1+ (NEGATIVE)
[2020-08-09 17:04] LABS: BACTERIA,URINE Few /HPF (None Seen); RBC,URINE >100 /HPF (0-2); SQUAMOUS EPITHELIAL CELL,UR Few /LPF (None Seen)
[2020-08-09 17:24] LABS: C.DIFF GDH ANTIGEN, Stool Negative (Negative); C.DIFF TOXINS A&B, Stool Negative (Negative)
[2020-08-09] MEDS ORDERED: MAGNESIUM OXIDE 400 MG TABLET PO ONE (17:30)
[2020-08-09 19:39] VITALS: BP 147/79
[2020-08-09 23:40] VITALS: BP 136/69
[2020-08-10] MEDS: MORPHINE SULFATE 2 MG/ML SYRINGE IVP PRN (00:16)
[2020-08-10] MEDS: ACETYLCYSTEINE 10% 100 MG/ML 4 ML NEB SOLUTION NEB SCH ×4 (02:38→20:57)
[2020-08-10 03:55] VITALS: BP 145/71
[2020-08-10] MEDS: HydrALAZINE HCL 50 MG TABLET PO SCH ×3 (06:41→17:03)
[2020-08-10] MEDS: LORazepam 2 MG/ML VIAL IVP PRN (06:42)
[2020-08-10 07:24] VITALS: BP 133/68
[2020-08-10 07:51] LABS: BASOPHILS % (AUTO) 0.4 % (0.0-2.0); EOSINOPHILS % (AUTO) 2.7 % (1.0-6.0); HEMATOCRIT 27.9 % (36-46); HEMOGLOBIN 9.1 g/dL (12.0-16.0); LYMPHOCYTES # (AUTO) 1.9 K/uL (1.0-4.8); LYMPHOCYTES % (AUTO) 19.3 % (22.0-44.0); MEAN CORPUSCULAR HGB CONC 32.5 G/dL (31.0-37.0); MEAN CORPUSCULAR VOLUME 96 fL (80-100); MONOCYTES # (AUTO) 0.4 K/uL (0.1-1.0); MONOCYTES % (AUTO) 3.6 % (2.0-9.0); NEUTROPHILS # (AUTO) 7.2 K/uL (1.8-7.7); PLATELET COUNT (AUTO) 223 K/uL (150-450); RED BLOOD CELL COUNT(AUTO) 2.92 MIL/uL (4.00-5.20); RED CELL DISTRIBUTION WIDTH 17.9 % (11.5-14.5)
[2020-08-10 08:04] LABS: ALANINE AMINOTRANSFERASE 354 U/L (12-78); ALBUMIN 2.4 g/dL (3.4-5.0); ALKALINE PHOSPHATASE 142 U/L (46-116); ANION GAP 9 mmol/L (8-16); ASPARTATE AMINOTRANSFERASE 177 U/L (15-37); BILIRUBIN,TOTAL 0.4 mg/dL (0.1-1.0); CALCIUM, TOTAL 8.9 mg/dL (8.8-10.5); CARBON DIOXIDE 28 mmol/L (22-29); CHLORIDE 104 mmol/L (98-107); GLOMERULAR FILTR. RATE CALC > 60 mL/min (>60); GLUCOSE,RANDOM 116 mg/dL (70-110); POTASSIUM 3.2 mmol/L (3.5-5.1); SODIUM SERUM 141 mmol/L (136-145); UREA NITROGEN, BLOOD 31 mg/dL (7-18)
[2020-08-10] MEDS: PANTOPRAZOLE SODIUM 40 MG/VIAL IVP SCH ×2 (08:09→20:53)
[2020-08-10] MEDS: DEXAMETHASONE SOD PHOS 4 MG/ML VIAL IVP SCH (08:09)
[2020-08-10] MEDS: MULTIVITAMINS WITH MINERALS, THERAPEUTIC 15 ML UDCUP NG SCH (08:09)
[2020-08-10] MEDS: ISOSORBIDE MONONITRATE 30 MG ER TABLET PO SCH (08:09)
[2020-08-10] MEDS: DIAZEPAM 5 MG TABLET PO SCH ×3 (08:09→20:53)
[2020-08-10] MEDS: OxyCODONE HCL 5 MG IR TABLET PO SCH ×4 (08:10→20:53)
[2020-08-10] MEDS: HEPARIN SODIUM,PORCINE 5,000 UNITS/ML VIAL SQ SCH ×2 (08:10→15:41)
[2020-08-10] MEDS: ASPIRIN 81 MG CHEWABLE TABLET PO SCH (08:10)
[2020-08-10] MEDS: ALBUTEROL SULFATE 2.5 MG/0.5 ML NEB SOLUTION NEB PRN ×3 (08:20→20:57)
[2020-08-10] MEDS: IPRATROPIUM BROMIDE 0.5 MG/2.5 ML NEB SOLUTION NEB PRN ×3 (08:20→20:57)
[2020-08-10] MEDS: POTASSIUM CHLORIDE 20 MEQ ER TABLET PO PRN (10:42)
[2020-08-10 10:59] VITALS: BP 111/51
[2020-08-10] MEDS: SODIUM CHLORIDE 0.9% 500 ML IV SCH (11:18)
[2020-08-10] MEDS ORDERED: DEXTROSE 5%-WATER 500 ML IV ONE (12:48)
[2020-08-10] MEDS: AMPHOTERICIN B LIPOSOME IV SCH (13:30)
[2020-08-10] MEDS: WATER IV SCH (13:30)
[2020-08-10] MEDS: DEXTROSE 5% IV SCH (13:30)
[2020-08-10 15:07] VITALS: BP 165/75
[2020-08-10] MEDS ORDERED: ACET104 NEB (17:58)
[2020-08-10] MEDS ORDERED: AMPH50VI IV (18:04)
[2020-08-10] MEDS ORDERED: ASPI-1450 PO (18:08)
[2020-08-10] MEDS ORDERED: DEXA41I IVP (18:09)
[2020-08-10] MEDS ORDERED: HEPA500018 SQ (18:10)
[2020-08-10] MEDS ORDERED: DIAZ10 PO (18:10)
[2020-08-10] MEDS ORDERED: HYDR50TA36 PO (18:11)
[2020-08-10] MEDS ORDERED: ISOS30TA92 PO (18:12)
[2020-08-10] MEDS ORDERED: MULT9LIQ7 NG (18:13)
[2020-08-10] MEDS ORDERED: PANT40VI14 IVP (18:14)
[2020-08-10] MEDS ORDERED: OXYC5 PO (18:14)
[2020-08-10] MEDS ORDERED: SODI500I5 IV (18:17)
[2020-08-10] MEDS ORDERED: ACET-2895 PO (18:18)
[2020-08-10] MEDS ORDERED: AUD NEB (18:19)
[2020-08-10] MEDS ORDERED: DOCU-275 PO (18:20)
[2020-08-10] MEDS ORDERED: BISA10SU11 PR (18:20)
[2020-08-10] MEDS ORDERED: HYDR473S62 PO (18:21)
[2020-08-10] MEDS ORDERED: HYDR20I IVP (18:22)
[2020-08-10] MEDS ORDERED: IPRNEB NEB (18:24)
[2020-08-10] MEDS ORDERED: LOPE2 PO (18:25)
[2020-08-10] MEDS ORDERED: LORA2I IVP (18:26)
[2020-08-10] MEDS ORDERED: MOM30 PO (18:26)
[2020-08-10] MEDS ORDERED: METO10L IVP (18:29)
[2020-08-10] MEDS ORDERED: POLY17PO PO (18:30)
[2020-08-10 20:04] VITALS: BP 150/81
[2020-08-10] MEDS: ACETAMINOPHEN 325 MG TABLET PO PRN (20:53)
[2020-08-11] VITALS (7 sets, daily range): BP systolic 109–179; BP diastolic 59–87
[2020-08-11] MEDS: HEPARIN SODIUM,PORCINE 5,000 UNITS/ML VIAL SQ SCH ×3 (00:02→15:49)
[2020-08-11] MEDS: HydrALAZINE HCL 50 MG TABLET PO SCH ×2 (00:02→06:11)
[2020-08-11] MEDS: ACETYLCYSTEINE 10% 100 MG/ML 4 ML NEB SOLUTION NEB SCH ×4 (03:48→19:50)
[2020-08-11] MEDS: ALBUTEROL SULFATE 2.5 MG/0.5 ML NEB SOLUTION NEB PRN ×4 (03:48→19:50)
[2020-08-11] MEDS: IPRATROPIUM BROMIDE 0.5 MG/2.5 ML NEB SOLUTION NEB PRN ×3 (03:48→16:14)
[2020-08-11] MEDS: PANTOPRAZOLE SODIUM 40 MG/VIAL IVP SCH (07:35)
[2020-08-11] MEDS: DEXAMETHASONE SOD PHOS 4 MG/ML VIAL IVP SCH (07:36)
[2020-08-11] MEDS: DIAZEPAM 5 MG TABLET PO SCH (07:36)
[2020-08-11] MEDS: ASPIRIN 81 MG CHEWABLE TABLET PO SCH (07:36)
[2020-08-11] MEDS: OxyCODONE HCL 5 MG IR TABLET PO SCH ×4 (07:36→21:02)
[2020-08-11] MEDS: ISOSORBIDE MONONITRATE 30 MG ER TABLET PO SCH (07:37)
[2020-08-11] MEDS: MULTIVITAMINS WITH MINERALS, THERAPEUTIC 15 ML UDCUP NG SCH (07:48)
[2020-08-11 09:16] LABS: BASOPHILS % (AUTO) 0.6 % (0.0-2.0); EOSINOPHILS % (AUTO) 3.1 % (1.0-6.0); HEMATOCRIT 25.3 % (36-46); HEMOGLOBIN 8.2 g/dL (12.0-16.0); LYMPHOCYTES # (AUTO) 2.4 K/uL (1.0-4.8); LYMPHOCYTES % (AUTO) 25.3 % (22.0-44.0); MEAN CORPUSCULAR HGB CONC 32.6 G/dL (31.0-37.0); MEAN CORPUSCULAR VOLUME 95 fL (80-100); MONOCYTES # (AUTO) 0.4 K/uL (0.1-1.0); MONOCYTES % (AUTO) 4.7 % (2.0-9.0); NEUTROPHILS # (AUTO) 6.3 K/uL (1.8-7.7); NEUTROPHILS % (AUTO) 66.3 % (40.0-70.0); PLATELET COUNT (AUTO) 209 K/uL (150-450); RED BLOOD CELL COUNT(AUTO) 2.66 MIL/uL (4.00-5.20); RED CELL DISTRIBUTION WIDTH 17.5 % (11.5-14.5)
[2020-08-11 09:34] LABS: ALANINE AMINOTRANSFERASE 486 U/L (12-78); ALBUMIN 2.3 g/dL (3.4-5.0); ALKALINE PHOSPHATASE 140 U/L (46-116); ANION GAP 9 mmol/L (8-16); ASPARTATE AMINOTRANSFERASE 310 U/L (15-37); BILIRUBIN,TOTAL 0.3 mg/dL (0.1-1.0); CALCIUM, TOTAL 9.1 mg/dL (8.8-10.5); CARBON DIOXIDE 25 mmol/L (22-29); CHLORIDE 107 mmol/L (98-107); CREATININE 0.59 mg/dL (0.60-1.30); GLUCOSE,RANDOM 142 mg/dL (70-110); POTASSIUM 3.8 mmol/L (3.5-5.1); SODIUM SERUM 141 mmol/L (136-145); TOTAL PROTEIN, SERUM 6.6 g/dL (6.4-8.2); UREA NITROGEN, BLOOD 37 mg/dL (7-18)
[2020-08-11 09:36] LABS: GLOMERULAR FILTR. RATE CALC > 60 mL/min (>60)
[2020-08-11] MEDS: SODIUM CHLORIDE 0.9% 500 ML IV SCH (11:08)
[2020-08-11] MEDS: DEXTROSE 5% IV SCH (13:24)
[2020-08-11] MEDS: WATER IV SCH (13:24)
[2020-08-11] MEDS: AMPHOTERICIN B LIPOSOME IV SCH (13:24)
[2020-08-11] MEDS: FAMOTIDINE 10 MG/ML 2 ML VIAL IVP SCH (21:03)
[2020-08-11] MEDS: HYDROCODONE/CHLORPHEN POLIS 10-8 MG/5 ML ORAL.SYG PO PRN (21:06)
[2020-08-12] MEDS: HEPARIN SODIUM,PORCINE 5,000 UNITS/ML VIAL SQ SCH ×5 (00:14→23:17)
[2020-08-12 00:58] VITALS: BP 123/59
[2020-08-12] MEDS: ACETYLCYSTEINE 10% 100 MG/ML 4 ML NEB SOLUTION NEB SCH ×4 (03:01→21:19)
[2020-08-12] MEDS: ALBUTEROL SULFATE 2.5 MG/0.5 ML NEB SOLUTION NEB PRN ×4 (03:01→21:19)
[2020-08-12 06:12] LABS: HEMATOCRIT 27.1 % (36-46); MEAN CORPUSCULAR HEMOGLOBIN 31.2 pg (26.0-34.0); MEAN CORPUSCULAR HGB CONC 33.3 G/dL (31.0-37.0); MEAN CORPUSCULAR VOLUME 94 fL (80-100); PLATELET COUNT (AUTO) 215 K/uL (150-450); RED BLOOD CELL COUNT(AUTO) 2.88 MIL/uL (4.00-5.20); RED CELL DISTRIBUTION WIDTH 17.1 % (11.5-14.5)
[2020-08-12 06:37] LABS: ALANINE AMINOTRANSFERASE 512 U/L (12-78); ALBUMIN 2.3 g/dL (3.4-5.0); ALKALINE PHOSPHATASE 149 U/L (46-116); ANION GAP 9 mmol/L (8-16); ASPARTATE AMINOTRANSFERASE 205 U/L (15-37); BILIRUBIN,TOTAL 0.4 mg/dL (0.1-1.0); CALCIUM, TOTAL 9.1 mg/dL (8.8-10.5); CARBON DIOXIDE 26 mmol/L (22-29); CHLORIDE 104 mmol/L (98-107); CREATININE 0.46 mg/dL (0.60-1.30); GLUCOSE,RANDOM 116 mg/dL (70-110); POTASSIUM 3.2 mmol/L (3.5-5.1); SODIUM SERUM 139 mmol/L (136-145); UREA NITROGEN, BLOOD 36 mg/dL (7-18)
[2020-08-12 06:38] LABS: GLOMERULAR FILTR. RATE CALC > 60 mL/min (>60)
[2020-08-12 07:08] LABS: BAND NEUTROPHILS % (MANUAL) 5 % (0-5); EOSINOPHILS % (MANUAL) 3 % (1-6); LYMPHOCYTES % (MANUAL) 26 % (22-44); MONOCYTES % (MANUAL) 6 % (2-9); SEGMENTED NEUTROPHILS % 60 % (40-70)
[2020-08-12 07:36] VITALS: BP 154/69
[2020-08-12] MEDS: DEXAMETHASONE SOD PHOS 4 MG/ML VIAL IVP SCH (08:05)
[2020-08-12] MEDS: ASPIRIN 81 MG CHEWABLE TABLET PO SCH (08:06)
[2020-08-12] MEDS: OxyCODONE HCL 5 MG IR TABLET PO SCH ×4 (08:06→20:26)
[2020-08-12] MEDS: ISOSORBIDE MONONITRATE 30 MG ER TABLET PO SCH (08:06)
[2020-08-12] MEDS: FAMOTIDINE 10 MG/ML 2 ML VIAL IVP SCH ×2 (08:10→20:25)
[2020-08-12] MEDS: MULTIVITAMINS WITH MINERALS, THERAPEUTIC 15 ML UDCUP NG SCH (08:10)
[2020-08-12] MEDS ORDERED: POTASSIUM CHL 10 MEQ/WATER 50 ML IV PRN (11:15)
[2020-08-12] MEDS ORDERED: POTASSIUM CHLORIDE 20 MEQ ER TABLET PO PRN (11:15)
[2020-08-12] MEDS ORDERED: POTASSIUM CHLORIDE 10% 40 MEQ/30 ML LIQUID UDCUP PEG PRN (11:15)
[2020-08-12] MEDS: SODIUM CHLORIDE 0.9% 500 ML IV SCH (11:44)
[2020-08-12 12:09] VITALS: BP 154/90
[2020-08-12 12:16] VITALS: BP 131/62
[2020-08-12] MEDS: WATER IV SCH (13:36)
[2020-08-12] MEDS: AMPHOTERICIN B LIPOSOME IV SCH (13:36)
[2020-08-12] MEDS: DEXTROSE 5% IV SCH (13:36)
[2020-08-12 16:12] VITALS: BP 132/62
[2020-08-12] MEDS: DIAZEPAM 5 MG TABLET PO PRN (17:08)
[2020-08-12 20:47] VITALS: BP 145/65
[2020-08-12] MEDS: IPRATROPIUM BROMIDE 0.5 MG/2.5 ML NEB SOLUTION NEB PRN (21:20)
[2020-08-13] VITALS (7 sets, daily range): BP systolic 118–155; BP diastolic 56–99
[2020-08-13] MEDS: IPRATROPIUM BROMIDE 0.5 MG/2.5 ML NEB SOLUTION NEB PRN (01:48)
[2020-08-13] MEDS: ALBUTEROL SULFATE 2.5 MG/0.5 ML NEB SOLUTION NEB PRN ×2 (01:48→09:13)
[2020-08-13] MEDS: ACETYLCYSTEINE 10% 100 MG/ML 4 ML NEB SOLUTION NEB SCH ×2 (01:49→09:13)
[2020-08-13] MEDS: MORPHINE SULFATE 2 MG/ML SYRINGE IVP PRN (05:04)
[2020-08-13 07:10] LABS: ALANINE AMINOTRANSFERASE 573 U/L (12-78); ALBUMIN 2.5 g/dL (3.4-5.0); ALKALINE PHOSPHATASE 158 U/L (46-116); ANION GAP 10 mmol/L (8-16); ASPARTATE AMINOTRANSFERASE 242 U/L (15-37); BILIRUBIN,TOTAL 0.4 mg/dL (0.1-1.0); CALCIUM, TOTAL 9.4 mg/dL (8.8-10.5); CARBON DIOXIDE 27 mmol/L (22-29); CHLORIDE 107 mmol/L (98-107); GLUCOSE,RANDOM 107 mg/dL (70-110); POTASSIUM 3.5 mmol/L (3.5-5.1); SODIUM SERUM 144 mmol/L (136-145); TOTAL PROTEIN, SERUM 7.5 g/dL (6.4-8.2); UREA NITROGEN, BLOOD 35 mg/dL (7-18)
[2020-08-13 07:11] LABS: GLOMERULAR FILTR. RATE CALC > 60 mL/min (>60)
[2020-08-13] MEDS: HEPARIN SODIUM,PORCINE 5,000 UNITS/ML VIAL SQ SCH ×2 (08:01→15:30)
[2020-08-13] MEDS: MULTIVITAMINS WITH MINERALS, THERAPEUTIC 15 ML UDCUP NG SCH (08:01)
[2020-08-13] MEDS: ASPIRIN 81 MG CHEWABLE TABLET PO SCH (08:02)
[2020-08-13] MEDS: OxyCODONE HCL 5 MG IR TABLET PO SCH ×4 (08:02→20:47)
[2020-08-13] MEDS: ISOSORBIDE MONONITRATE 30 MG ER TABLET PO SCH (08:02)
[2020-08-13] MEDS: DEXAMETHASONE 2 MG TABLET PO SCH (08:02)
[2020-08-13] MEDS: FAMOTIDINE 10 MG/ML 2 ML VIAL IVP SCH ×2 (08:02→20:47)
[2020-08-13] MEDS: THIAMINE 100 MG TABLET PO SCH (08:02)
[2020-08-13] MEDS: SODIUM CHLORIDE 0.9% 500 ML IV SCH (10:57)
[2020-08-13] MEDS ORDERED: ACETYLCYSTEINE 10% 100 MG/ML 4 ML NEB SOLUTION NEB PRN (12:00)
[2020-08-13] MEDS: DEXTROSE 5% IV SCH (13:46)
[2020-08-13] MEDS: WATER IV SCH (13:46)
[2020-08-13] MEDS: AMPHOTERICIN B LIPOSOME IV SCH (13:46)
[2020-08-13] MEDS: LACTOBAC ACID/BULG/BIFID/THERM TABLET PO SCH (20:47)
[2020-08-14 04:35] VITALS: BP 164/94
[2020-08-14 07:49] VITALS: BP 138/69
[2020-08-14 08:02] LABS: HEMATOCRIT 28.6 % (36-46); HEMOGLOBIN 9.8 g/dL (12.0-16.0); MEAN CORPUSCULAR HEMOGLOBIN 30.7 pg (26.0-34.0); MEAN CORPUSCULAR HGB CONC 34.2 G/dL (31.0-37.0); MEAN CORPUSCULAR VOLUME 90 fL (80-100); PLATELET COUNT (AUTO) 240 K/uL (150-450); RED BLOOD CELL COUNT(AUTO) 3.17 MIL/uL (4.00-5.20); RED CELL DISTRIBUTION WIDTH 16.2 % (11.5-14.5)
[2020-08-14] MEDS: THIAMINE 100 MG TABLET PO SCH (08:11)
[2020-08-14] MEDS: DEXAMETHASONE 2 MG TABLET PO SCH (08:11)
[2020-08-14] MEDS: FAMOTIDINE 10 MG/ML 2 ML VIAL IVP SCH ×2 (08:11→20:54)
[2020-08-14] MEDS: ISOSORBIDE MONONITRATE 30 MG ER TABLET PO SCH (08:11)
[2020-08-14] MEDS: MULTIVITAMINS WITH MINERALS, THERAPEUTIC 15 ML UDCUP NG SCH (08:12)
[2020-08-14] MEDS: HEPARIN SODIUM,PORCINE 5,000 UNITS/ML VIAL SQ SCH ×3 (08:12→16:47)
[2020-08-14] MEDS: OxyCODONE HCL 5 MG IR TABLET PO SCH ×4 (08:12→20:53)
[2020-08-14] MEDS: ASPIRIN 81 MG CHEWABLE TABLET PO SCH (08:13)
[2020-08-14] MEDS: LACTOBAC ACID/BULG/BIFID/THERM TABLET PO SCH ×2 (08:13→20:54)
[2020-08-14] MEDS: POTASSIUM CHL 10 MEQ/WATER 50 ML IV PRN ×4 (08:14→11:28)
[2020-08-14 08:28] LABS: ALANINE AMINOTRANSFERASE 689 U/L (12-78); ALBUMIN 2.5 g/dL (3.4-5.0); ALKALINE PHOSPHATASE 191 U/L (46-116); ANION GAP 12 mmol/L (8-16); ASPARTATE AMINOTRANSFERASE 264 U/L (15-37); BILIRUBIN,TOTAL 0.4 mg/dL (0.1-1.0); CALCIUM, TOTAL 9.6 mg/dL (8.8-10.5); CARBON DIOXIDE 24 mmol/L (22-29); CHLORIDE 102 mmol/L (98-107); CREATININE 0.52 mg/dL (0.60-1.30); GLUCOSE,RANDOM 124 mg/dL (70-110); POTASSIUM 3.1 mmol/L (3.5-5.1); SODIUM SERUM 138 mmol/L (136-145); TOTAL PROTEIN, SERUM 7.6 g/dL (6.4-8.2); UREA NITROGEN, BLOOD 41 mg/dL (7-18)
[2020-08-14 08:29] LABS: GLOMERULAR FILTR. RATE CALC > 60 mL/min (>60)
[2020-08-14] MEDS: LORazepam 2 MG/ML VIAL IVP PRN (09:18)
[2020-08-14 09:31] LABS: ABG CARBOXYHEMOGLOBIN 0.8 % (0.0-1.5); ABG HCO3 22.7 mmol/L (22.0-26.0); ABG METHEMOGLOBIN 0.3 % (0.0-1.5); ABG OXYGEN CONTENT 12.8 mL/dL (15.0-23.0); ABG PCO2 60 mmHg (35-45); ABG PH 7.256 (7.35-7.450); ABG TOTAL HEMOGLOBIN 11.2 G/dL (12.0-18.0); PO2, ARTERIAL BG 55.3 mmHg (75.0-83.0); SOURCE, BLOOD GAS ARTERIAL; TEMPERATURE, FAHRENHEIT, BG 98.6 FAHREN (96.0-98.6)
[2020-08-14 09:32] LABS: ABG OXYGEN SATURATION 81.9 % (95.0-98.0); O2 DEVICE,BLOOD GAS VENTILATOR (ROOM AIR); PEEP,BG 5 cm H2O; SITE, BLOOD GAS RT RADIAL; VT, ABG 425 ml
[2020-08-14 10:25] LABS: BAND NEUTROPHILS % (MANUAL) 3 % (0-5); EOSINOPHILS % (MANUAL) 2 % (1-6); LYMPHOCYTES % (MANUAL) 33 % (22-44); MONOCYTES % (MANUAL) 3 % (2-9); SEGMENTED NEUTROPHILS % 59 % (40-70)
[2020-08-14 10:42] VITALS: BP 191/93
[2020-08-14] MEDS: DIAZEPAM 5 MG TABLET PO PRN (11:03)
[2020-08-14] MEDS: ACETAMINOPHEN 325 MG TABLET PO PRN (12:21)
[2020-08-14] MEDS ORDERED: *CLINICAL-CEFTAZIDIME DOSING CLINICAL ONE (12:30)
[2020-08-14] MEDS: CefTAZidime PENTAHYDRATE 1 GM in DEXTROSE 5%-WATER 50 ML IV SCH (13:51)
[2020-08-14] MEDS: METOPROLOL SUCCINATE 25 MG ER TABLET PO SCH (14:02)
[2020-08-14] MEDS: PROPOFOL 1000 MG/ISO-OSM 100 ML IV PRN (15:20)
[2020-08-14] MEDS: MORPHINE SULFATE 2 MG/ML SYRINGE IVP PRN (15:20)
[2020-08-14 16:00] VITALS: BP 81/36
[2020-08-14] MEDS: DAPTOMYCIN 250 MG in SODIUM CHLORIDE 0.9% 50 ML IV SCH (16:00)
[2020-08-14 16:23] LABS: APPEARANCE,URINE TURBID (CLEAR); BILIRUBIN,URINE NEGATIVE (NEGATIVE); GLUCOSE, URINE (UA) NEGATIVE (NEGATIVE); KETONES,URINE NEGATIVE (NEGATIVE); LEUKOCYTE ESTERASE ,URINE MODERATE (NEGATIVE); OCCULT BLOOD,URINE LARGE (NEGATIVE); PH,URINE 5.5 (5.0-8.0); PROTEIN,URINE SEE CONFIRM (NEGATIVE)
[2020-08-14] MEDS ORDERED: RINGERS SOLUTION,LACTATED 1,000 ML IV ONE (16:27)
[2020-08-14] MEDS ORDERED: ALBUMIN HUMAN 25%-25GM/100ML 100 ML IV ONE (16:30)
[2020-08-14] MEDS ORDERED: RINGERS SOLUTION,LACTATED 500 ML IV SCH (16:30)
[2020-08-14 16:43] LABS: BACTERIA,URINE Many /HPF (None Seen); NITRATE,URINE POSITIVE (NEGATIVE); SQUAMOUS EPITHELIAL CELL,UR Moderate /LPF (None Seen); SULFOSALICYLIC ACID,URINE 3+ (Negative)
[2020-08-14] MEDS: MetroNIDAZOLE 500 MG/NACL 100 ML IV SCH (16:47)
[2020-08-14] MEDS: SODIUM CHLORIDE 0.9% 500 ML IV SCH (18:16)
[2020-08-14 20:00] VITALS: BP 98/59
[2020-08-14] MEDS: DEXTROSE 5% IV SCH (20:39)
[2020-08-14] MEDS: WATER IV SCH (20:39)
[2020-08-14] MEDS: AMPHOTERICIN B LIPOSOME IV SCH (20:39)
[2020-08-15] VITALS: BP 139/82
[2020-08-15] MEDS ORDERED: SODIUM CHLORIDE 0.9% 250 ML IV ONE (00:07)
[2020-08-15] MEDS: MetroNIDAZOLE 500 MG/NACL 100 ML IV SCH ×4 (00:09→23:30)
[2020-08-15] MEDS: HEPARIN SODIUM,PORCINE 5,000 UNITS/ML VIAL SQ SCH ×4 (00:10→23:29)
[2020-08-15] MEDS: CefTAZidime PENTAHYDRATE 1 GM in DEXTROSE 5%-WATER 50 ML IV SCH ×2 (01:54→13:48)
[2020-08-15 04:00] VITALS: BP 170/92
[2020-08-15] MEDS: LORazepam 2 MG/ML VIAL IVP PRN ×3 (05:07→16:46)
[2020-08-15 05:47] LABS: BASOPHILS % (AUTO) 0.3 % (0.0-2.0); EOSINOPHILS % (AUTO) 3.7 % (1.0-6.0); HEMATOCRIT 28.3 % (36-46); HEMOGLOBIN 9.4 g/dL (12.0-16.0); LYMPHOCYTES # (AUTO) 2.4 K/uL (1.0-4.8); LYMPHOCYTES % (AUTO) 22.5 % (22.0-44.0); MEAN CORPUSCULAR HEMOGLOBIN 30.7 pg (26.0-34.0); MEAN CORPUSCULAR VOLUME 93 fL (80-100); MONOCYTES # (AUTO) 0.7 K/uL (0.1-1.0); MONOCYTES % (AUTO) 6.6 % (2.0-9.0); NEUTROPHILS % (AUTO) 66.9 % (40.0-70.0); PLATELET COUNT (AUTO) 227 K/uL (150-450); RED BLOOD CELL COUNT(AUTO) 3.04 MIL/uL (4.00-5.20); RED CELL DISTRIBUTION WIDTH 16.6 % (11.5-14.5)
[2020-08-15 06:01] LABS: ALANINE AMINOTRANSFERASE 560 U/L (12-78); ALKALINE PHOSPHATASE 210 U/L (46-116); ANION GAP 11 mmol/L (8-16); ASPARTATE AMINOTRANSFERASE 132 U/L (15-37); BILIRUBIN,TOTAL 0.4 mg/dL (0.1-1.0); CALCIUM, TOTAL 9.5 mg/dL (8.8-10.5); CARBON DIOXIDE 27 mmol/L (22-29); CHLORIDE 109 mmol/L (98-107); CREATININE 0.43 mg/dL (0.60-1.30); GLUCOSE,RANDOM 122 mg/dL (70-110); POTASSIUM 3.1 mmol/L (3.5-5.1); SODIUM SERUM 147 mmol/L (136-145); TOTAL PROTEIN, SERUM 7.4 g/dL (6.4-8.2); UREA NITROGEN, BLOOD 34 mg/dL (7-18)
[2020-08-15 06:04] LABS: GLOMERULAR FILTR. RATE CALC > 60 mL/min (>60)
[2020-08-15 08:00] VITALS: BP 176/89
[2020-08-15] MEDS: ASPIRIN 81 MG CHEWABLE TABLET PO SCH (08:45)
[2020-08-15] MEDS: DEXAMETHASONE 2 MG TABLET PO SCH (08:46)
[2020-08-15] MEDS: FAMOTIDINE 10 MG/ML 2 ML VIAL IVP SCH ×2 (08:46→20:33)
[2020-08-15] MEDS: LACTOBAC ACID/BULG/BIFID/THERM TABLET PO SCH ×2 (08:46→20:33)
[2020-08-15] MEDS: THIAMINE 100 MG TABLET PO SCH (08:46)
[2020-08-15] MEDS: OxyCODONE HCL 5 MG IR TABLET PO SCH ×4 (08:46→20:33)
[2020-08-15] MEDS: MULTIVITAMINS WITH MINERALS, THERAPEUTIC 15 ML UDCUP NG SCH (08:46)
[2020-08-15] MEDS: DIAZEPAM 5 MG TABLET PO PRN (08:46)
[2020-08-15] MEDS: METOPROLOL SUCCINATE 25 MG ER TABLET PO SCH (08:46)
[2020-08-15] MEDS: PROPOFOL 1000 MG/ISO-OSM 100 ML IV PRN (08:47)
[2020-08-15] MEDS: MORPHINE SULFATE 2 MG/ML SYRINGE IVP PRN ×2 (08:47→16:41)
[2020-08-15] MEDS: ISOSORBIDE MONONITRATE 30 MG ER TABLET PO SCH (08:48)
[2020-08-15] MEDS: POTASSIUM CHL 10 MEQ/WATER 50 ML IV PRN ×2 (09:37→10:40)
[2020-08-15 12:00] VITALS: BP 135/73
[2020-08-15 16:00] VITALS: BP 159/84
[2020-08-15] MEDS: HydrALAZINE HCL 20 MG/ML VIAL IVP PRN (16:09)
[2020-08-15] MEDS: DAPTOMYCIN 250 MG in SODIUM CHLORIDE 0.9% 50 ML IV SCH (16:42)
[2020-08-15] MEDS: ACETAMINOPHEN 325 MG TABLET PO PRN (16:53)
[2020-08-15] MEDS: FentaNYL CIT 1000MCG/D5%-WATER 100 ML IV PRN (17:13)
[2020-08-15] MEDS: SODIUM CHLORIDE 0.9% 500 ML IV SCH (18:14)
[2020-08-15 20:00] VITALS: BP 146/80
[2020-08-15] MEDS: WATER IV SCH (20:33)
[2020-08-15] MEDS: DEXTROSE 5% IV SCH (20:33)
[2020-08-15] MEDS: AMPHOTERICIN B LIPOSOME IV SCH (20:33)
[2020-08-16] VITALS: BP 126/62
[2020-08-16] MEDS: CefTAZidime PENTAHYDRATE 1 GM in DEXTROSE 5%-WATER 50 ML IV SCH ×2 (00:55→12:55)
[2020-08-16] MEDS: PROPOFOL 1000 MG/ISO-OSM 100 ML IV PRN ×2 (00:55→08:58)
[2020-08-16] MEDS: HydrALAZINE HCL 20 MG/ML VIAL IVP PRN (01:44)
[2020-08-16] MEDS: LORazepam 2 MG/ML VIAL IVP PRN (02:18)
[2020-08-16] MEDS: MORPHINE SULFATE 2 MG/ML SYRINGE IVP PRN (02:20)
[2020-08-16 04:00] VITALS: BP 125/69
[2020-08-16 06:15] LABS: BASOPHILS % (AUTO) 0.4 % (0.0-2.0); EOSINOPHILS % (AUTO) 2.9 % (1.0-6.0); HEMATOCRIT 27.8 % (36-46); HEMOGLOBIN 9.1 g/dL (12.0-16.0); LYMPHOCYTES % (AUTO) 24.1 % (22.0-44.0); MEAN CORPUSCULAR HEMOGLOBIN 30.7 pg (26.0-34.0); MEAN CORPUSCULAR HGB CONC 32.7 G/dL (31.0-37.0); MEAN CORPUSCULAR VOLUME 94 fL (80-100); MONOCYTES # (AUTO) 0.6 K/uL (0.1-1.0); MONOCYTES % (AUTO) 7.3 % (2.0-9.0); NEUTROPHILS # (AUTO) 5.5 K/uL (1.8-7.7); NEUTROPHILS % (AUTO) 65.3 % (40.0-70.0); PLATELET COUNT (AUTO) 178 K/uL (150-450); RED BLOOD CELL COUNT(AUTO) 2.95 MIL/uL (4.00-5.20); RED CELL DISTRIBUTION WIDTH 16.8 % (11.5-14.5)
[2020-08-16 06:37] LABS: ALANINE AMINOTRANSFERASE 330 U/L (12-78); ALBUMIN 2.4 g/dL (3.4-5.0); ALKALINE PHOSPHATASE 168 U/L (46-116); ANION GAP 6 mmol/L (8-16); ASPARTATE AMINOTRANSFERASE 58 U/L (15-37); BILIRUBIN,TOTAL 0.3 mg/dL (0.1-1.0); CALCIUM, TOTAL 9.4 mg/dL (8.8-10.5); CARBON DIOXIDE 27 mmol/L (22-29); CHLORIDE 107 mmol/L (98-107); CREATININE 0.46 mg/dL (0.60-1.30); GLUCOSE,RANDOM 104 mg/dL (70-110); PHOSPHORUS 4.2 mg/dL (2.5-4.9); POTASSIUM 3.6 mmol/L (3.5-5.1); SODIUM SERUM 140 mmol/L (136-145); TOTAL PROTEIN, SERUM 6.4 g/dL (6.4-8.2); UREA NITROGEN, BLOOD 38 mg/dL (7-18)
[2020-08-16 06:41] LABS: GLOMERULAR FILTR. RATE CALC > 60 mL/min (>60)
[2020-08-16 08:00] VITALS: BP 110/57
[2020-08-16] MEDS: FentaNYL CIT 1000MCG/D5%-WATER 100 ML IV PRN ×2 (08:57→23:43)
[2020-08-16] MEDS: MetroNIDAZOLE 500 MG/NACL 100 ML IV SCH ×3 (08:57→23:43)
[2020-08-16] MEDS: THIAMINE 100 MG TABLET PO SCH (08:59)
[2020-08-16] MEDS: METOPROLOL SUCCINATE 25 MG ER TABLET PO SCH (08:59)
[2020-08-16] MEDS: ASPIRIN 81 MG CHEWABLE TABLET PO SCH (08:59)
[2020-08-16] MEDS: MULTIVITAMINS WITH MINERALS, THERAPEUTIC 15 ML UDCUP NG SCH (08:59)
[2020-08-16] MEDS: LACTOBAC ACID/BULG/BIFID/THERM TABLET PO SCH ×2 (08:59→20:13)
[2020-08-16] MEDS: HEPARIN SODIUM,PORCINE 5,000 UNITS/ML VIAL SQ SCH ×3 (09:00→23:44)
[2020-08-16] MEDS: ISOSORBIDE MONONITRATE 30 MG ER TABLET PO SCH (09:00)
[2020-08-16] MEDS: OxyCODONE HCL 5 MG IR TABLET PO SCH ×4 (09:00→20:14)
[2020-08-16] MEDS: FAMOTIDINE 10 MG/ML 2 ML VIAL IVP SCH ×2 (09:00→20:13)
[2020-08-16] MEDS: DEXAMETHASONE 2 MG TABLET PO SCH (09:02)
[2020-08-16 12:00] VITALS: BP 156/70
[2020-08-16 16:00] VITALS: BP 92/38
[2020-08-16] MEDS: DAPTOMYCIN 250 MG in SODIUM CHLORIDE 0.9% 50 ML IV SCH (17:48)
[2020-08-16] MEDS: SODIUM CHLORIDE 0.9% 500 ML IV SCH (18:20)
[2020-08-16 20:00] VITALS: BP 162/80
[2020-08-16] MEDS: WATER IV SCH (20:13)
[2020-08-16] MEDS: AMPHOTERICIN B LIPOSOME IV SCH (20:13)
[2020-08-16] MEDS: DEXTROSE 5% IV SCH (20:13)
[2020-08-17] VITALS: BP 172/95
[2020-08-17] MEDS ORDERED: SODIUM CHLORIDE 0.9% 250 ML IV ONE (00:09)
[2020-08-17] MEDS: CefTAZidime PENTAHYDRATE 1 GM in DEXTROSE 5%-WATER 50 ML IV SCH ×2 (00:11→12:21)
[2020-08-17] MEDS: HydrALAZINE HCL 20 MG/ML VIAL IVP PRN (00:11)
[2020-08-17] MEDS: LORazepam 2 MG/ML VIAL IVP PRN ×5 (01:25→22:53)
[2020-08-17 04:00] VITALS: BP 151/66
[2020-08-17] MEDS: PROPOFOL 1000 MG/ISO-OSM 100 ML IV PRN ×2 (04:23→08:37)
[2020-08-17 07:13] LABS: BASOPHILS % (AUTO) 0.5 % (0.0-2.0); EOSINOPHILS % (AUTO) 2.9 % (1.0-6.0); HEMATOCRIT 27.5 % (36-46); LYMPHOCYTES # (AUTO) 2.2 K/uL (1.0-4.8); LYMPHOCYTES % (AUTO) 23.8 % (22.0-44.0); MEAN CORPUSCULAR HEMOGLOBIN 30.9 pg (26.0-34.0); MEAN CORPUSCULAR HGB CONC 32.6 G/dL (31.0-37.0); MEAN CORPUSCULAR VOLUME 95 fL (80-100); MONOCYTES # (AUTO) 0.7 K/uL (0.1-1.0); NEUTROPHILS # (AUTO) 6.2 K/uL (1.8-7.7); NEUTROPHILS % (AUTO) 65.8 % (40.0-70.0); PLATELET COUNT (AUTO) 231 K/uL (150-450); RED CELL DISTRIBUTION WIDTH 16.8 % (11.5-14.5)
[2020-08-17 07:45] LABS: ALANINE AMINOTRANSFERASE 242 U/L (12-78); ALBUMIN 2.5 g/dL (3.4-5.0); ALKALINE PHOSPHATASE 163 U/L (46-116); ANION GAP 9 mmol/L (8-16); ASPARTATE AMINOTRANSFERASE 36 U/L (15-37); BILIRUBIN,TOTAL 0.2 mg/dL (0.1-1.0); CALCIUM, TOTAL 9.4 mg/dL (8.8-10.5); CARBON DIOXIDE 26 mmol/L (22-29); CHLORIDE 107 mmol/L (98-107); CREATININE 0.45 mg/dL (0.60-1.30); GLUCOSE,RANDOM 123 mg/dL (70-110); POTASSIUM 3.5 mmol/L (3.5-5.1); SODIUM SERUM 142 mmol/L (136-145); TOTAL PROTEIN, SERUM 6.9 g/dL (6.4-8.2); UREA NITROGEN, BLOOD 34 mg/dL (7-18)
[2020-08-17 07:54] LABS: GLOMERULAR FILTR. RATE CALC > 60 mL/min (>60)
[2020-08-17 08:00] VITALS: BP 158/67
[2020-08-17] MEDS: ASPIRIN 81 MG CHEWABLE TABLET PO SCH (08:35)
[2020-08-17] MEDS: ISOSORBIDE MONONITRATE 30 MG ER TABLET PO SCH (08:35)
[2020-08-17] MEDS: THIAMINE 100 MG TABLET PO SCH (08:35)
[2020-08-17] MEDS: LACTOBAC ACID/BULG/BIFID/THERM TABLET PO SCH ×2 (08:35→20:21)
[2020-08-17] MEDS: MULTIVITAMINS WITH MINERALS, THERAPEUTIC 15 ML UDCUP NG SCH (08:35)
[2020-08-17] MEDS: HEPARIN SODIUM,PORCINE 5,000 UNITS/ML VIAL SQ SCH ×3 (08:36→23:50)
[2020-08-17] MEDS: FAMOTIDINE 10 MG/ML 2 ML VIAL IVP SCH ×2 (08:36→20:20)
[2020-08-17] MEDS: OxyCODONE HCL 5 MG IR TABLET PO SCH ×4 (08:36→20:21)
[2020-08-17] MEDS: METOPROLOL SUCCINATE 25 MG ER TABLET PO SCH (08:36)
[2020-08-17] MEDS: MORPHINE SULFATE 2 MG/ML SYRINGE IVP PRN ×4 (09:20→23:51)
[2020-08-17] MEDS: MetroNIDAZOLE 500 MG/NACL 100 ML IV SCH ×3 (09:20→23:51)
[2020-08-17] MEDS: DEXAMETHASONE 2 MG TABLET PO SCH (09:20)
[2020-08-17 12:00] VITALS: BP 104/54
[2020-08-17] MEDS: FentaNYL CIT 1000MCG/D5%-WATER 100 ML IV PRN (12:20)
[2020-08-17] MEDS ORDERED: DEXTROSE 5%-WATER 250 ML IV ONE (12:34)
[2020-08-17] MEDS: DAPTOMYCIN 250 MG in SODIUM CHLORIDE 0.9% 50 ML IV SCH (15:26)
[2020-08-17 16:00] VITALS: BP 115/59
[2020-08-17] MEDS ORDERED: MAGNESIUM OXIDE 400 MG TABLET PO ONE (16:45)
[2020-08-17] MEDS: SODIUM CHLORIDE 0.9% 500 ML IV SCH (17:09)
[2020-08-17 20:00] VITALS: BP 141/69
[2020-08-17] MEDS: AMPHOTERICIN B LIPOSOME IV SCH (20:20)
[2020-08-17] MEDS: DEXTROSE 5% IV SCH (20:20)
[2020-08-17] MEDS: WATER IV SCH (20:20)
[2020-08-17] MEDS: DIAZEPAM 5 MG TABLET PO SCH (20:22)
[2020-08-18] VITALS: BP 128/64
[2020-08-18] MEDS ORDERED: SODIUM CHLORIDE 0.9% 250 ML IV ONE ×3 (00:28→23:15)
[2020-08-18] MEDS: LORazepam 2 MG/ML VIAL IVP PRN ×11 (00:37→20:01)
[2020-08-18] MEDS: HydrALAZINE HCL 20 MG/ML VIAL IVP PRN ×2 (01:37→17:02)
[2020-08-18] MEDS: PROPOFOL 1000 MG/ISO-OSM 100 ML IV PRN ×2 (03:01→17:31)
[2020-08-18] MEDS: MORPHINE SULFATE 2 MG/ML SYRINGE IVP PRN ×4 (03:02→16:13)
[2020-08-18 04:00] VITALS: BP 145/67
[2020-08-18] MEDS: AMPICILLIN SODIUM 1 GM/NS 50 ML IV SCH ×3 (06:01→17:30)
[2020-08-18 06:28] LABS: BASOPHILS % (AUTO) 0.5 % (0.0-2.0); EOSINOPHILS % (AUTO) 3.2 % (1.0-6.0); HEMATOCRIT 27.2 % (36-46); HEMOGLOBIN 8.9 g/dL (12.0-16.0); LYMPHOCYTES # (AUTO) 2.5 K/uL (1.0-4.8); LYMPHOCYTES % (AUTO) 27.8 % (22.0-44.0); MEAN CORPUSCULAR HEMOGLOBIN 30.6 pg (26.0-34.0); MEAN CORPUSCULAR HGB CONC 32.7 G/dL (31.0-37.0); MEAN CORPUSCULAR VOLUME 94 fL (80-100); MONOCYTES # (AUTO) 0.7 K/uL (0.1-1.0); MONOCYTES % (AUTO) 7.9 % (2.0-9.0); NEUTROPHILS # (AUTO) 5.4 K/uL (1.8-7.7); NEUTROPHILS % (AUTO) 60.6 % (40.0-70.0); PLATELET COUNT (AUTO) 233 K/uL (150-450); RED BLOOD CELL COUNT(AUTO) 2.91 MIL/uL (4.00-5.20)
[2020-08-18 06:51] LABS: ALANINE AMINOTRANSFERASE 185 U/L (12-78); ALBUMIN 2.4 g/dL (3.4-5.0); ALKALINE PHOSPHATASE 161 U/L (46-116); ANION GAP 9 mmol/L (8-16); ASPARTATE AMINOTRANSFERASE 46 U/L (15-37); BILIRUBIN,TOTAL 0.3 mg/dL (0.1-1.0); CALCIUM, TOTAL 9.3 mg/dL (8.8-10.5); CARBON DIOXIDE 28 mmol/L (22-29); CHLORIDE 105 mmol/L (98-107); CREATININE 0.35 mg/dL (0.60-1.30); GLOMERULAR FILTR. RATE CALC > 60 mL/min (>60); GLUCOSE,RANDOM 108 mg/dL (70-110); POTASSIUM 3.4 mmol/L (3.5-5.1); SODIUM SERUM 142 mmol/L (136-145); TOTAL PROTEIN, SERUM 6.8 g/dL (6.4-8.2); UREA NITROGEN, BLOOD 26 mg/dL (7-18)
[2020-08-18 08:00] VITALS: BP 164/67
[2020-08-18] MEDS: DEXAMETHASONE 1 MG TABLET PO SCH (08:29)
[2020-08-18] MEDS: ASPIRIN 81 MG CHEWABLE TABLET PO SCH (08:29)
[2020-08-18] MEDS: LACTOBAC ACID/BULG/BIFID/THERM TABLET PO SCH ×2 (08:29→20:00)
[2020-08-18] MEDS: MULTIVITAMINS WITH MINERALS, THERAPEUTIC 15 ML UDCUP NG SCH (08:29)
[2020-08-18] MEDS: ISOSORBIDE MONONITRATE 30 MG ER TABLET PO SCH (08:29)
[2020-08-18] MEDS: OxyCODONE HCL 5 MG IR TABLET PO SCH ×4 (08:30→20:01)
[2020-08-18] MEDS: METOPROLOL SUCCINATE 25 MG ER TABLET PO SCH (08:30)
[2020-08-18] MEDS: MetroNIDAZOLE 500 MG/NACL 100 ML IV SCH ×2 (08:30→15:11)
[2020-08-18] MEDS: DIAZEPAM 5 MG TABLET PO SCH ×3 (08:30→20:03)
[2020-08-18] MEDS: HEPARIN SODIUM,PORCINE 5,000 UNITS/ML VIAL SQ SCH ×2 (08:31→15:11)
[2020-08-18] MEDS: FAMOTIDINE 10 MG/ML 2 ML VIAL IVP SCH ×2 (08:31→20:01)
[2020-08-18] MEDS: ACETAMINOPHEN 325 MG TABLET PO PRN (11:53)
[2020-08-18 12:00] VITALS: BP 121/54
[2020-08-18] MEDS ORDERED: FentaNYL 50 MCG/HOUR PATCH TD SCH (12:00)
[2020-08-18] MEDS: POTASSIUM CHL 10 MEQ/WATER 50 ML IV PRN ×3 (12:49→14:58)
[2020-08-18 16:00] VITALS: BP 189/127
[2020-08-18 16:32] LABS: ABG A-A DIFF O2 108.9 mmHg (10-20.0); ABG BASE EXCESS 3.4 mmol/L (-2.0-3.0); ABG CARBOXYHEMOGLOBIN 0.7 % (0.0-1.5); ABG METHEMOGLOBIN 0.3 % (0.0-1.5); ABG OXYGEN CONTENT 13.6 mL/dL (15.0-23.0); ABG OXYGEN SATURATION 98.2 % (95.0-98.0); ABG OXYHEMOGLOBIN 97.2 % (94.0-100.0); ABG PCO2 51 mmHg (35-45); ABG PH 7.369 (7.35-7.450); ABG TOTAL HEMOGLOBIN 9.8 G/dL (12.0-18.0); PO2, ARTERIAL BG 117.8 mmHg (75.0-83.0); TEMPERATURE, FAHRENHEIT, BG 98.6 FAHREN (96.0-98.6)
[2020-08-18 16:36] LABS: O2 DEVICE,BLOOD GAS VENTILATOR (ROOM AIR); PEEP,BG 5 cm H2O; SITE, BLOOD GAS LFT RADIAL; SOURCE, BLOOD GAS ARTERIAL; VT, ABG 425 ml
[2020-08-18] MEDS ORDERED: MORPHINE SULFATE 2 MG/ML SYRINGE IVP ONE (16:45)
[2020-08-18] MEDS: SODIUM CHLORIDE 0.9% 500 ML IV SCH (17:27)
[2020-08-18] MEDS ORDERED: FentaNYL 50 MCG/HOUR PATCH TD ONE (17:30)
[2020-08-18 20:00] VITALS: BP 144/68
[2020-08-18] MEDS: QUEtiapine FUMARATE 25 MG TABLET PO SCH (20:01)
[2020-08-18] MEDS: DEXTROSE 5% IV SCH (20:02)
[2020-08-18] MEDS: WATER IV SCH (20:02)
[2020-08-18] MEDS: AMPHOTERICIN B LIPOSOME IV SCH (20:02)
[2020-08-18] MEDS ORDERED: DEXTROSE 5%-WATER 250 ML IV ONE (20:54)
[2020-08-19] VITALS: BP 128/58
[2020-08-19] MEDS: AMPICILLIN SODIUM 1 GM/NS 50 ML IV SCH ×5 (00:03→23:50)
[2020-08-19] MEDS: HEPARIN SODIUM,PORCINE 5,000 UNITS/ML VIAL SQ SCH ×4 (00:04→23:49)
[2020-08-19] MEDS: MetroNIDAZOLE 500 MG/NACL 100 ML IV SCH ×4 (00:46→23:50)
[2020-08-19 04:00] VITALS: BP 121/49
[2020-08-19] MEDS: ACETAMINOPHEN 325 MG TABLET PO PRN (04:53)
[2020-08-19] MEDS: LORazepam 2 MG/ML VIAL IVP PRN ×4 (05:17→19:44)
[2020-08-19 05:48] LABS: BASOPHILS % (AUTO) 0.3 % (0.0-2.0); EOSINOPHILS % (AUTO) 4.8 % (1.0-6.0); HEMATOCRIT 23.9 % (36-46); HEMOGLOBIN 7.9 g/dL (12.0-16.0); LYMPHOCYTES % (AUTO) 24.7 % (22.0-44.0); MEAN CORPUSCULAR HEMOGLOBIN 31.1 pg (26.0-34.0); MEAN CORPUSCULAR HGB CONC 32.9 G/dL (31.0-37.0); MEAN CORPUSCULAR VOLUME 94 fL (80-100); MONOCYTES # (AUTO) 0.5 K/uL (0.1-1.0); MONOCYTES % (AUTO) 6.9 % (2.0-9.0); NEUTROPHILS % (AUTO) 63.3 % (40.0-70.0); PLATELET COUNT (AUTO) 206 K/uL (150-450); RED BLOOD CELL COUNT(AUTO) 2.54 MIL/uL (4.00-5.20); RED CELL DISTRIBUTION WIDTH 17.1 % (11.5-14.5)
[2020-08-19 06:04] LABS: ALANINE AMINOTRANSFERASE 134 U/L (12-78); ALKALINE PHOSPHATASE 127 U/L (46-116); ANION GAP 6 mmol/L (8-16); ASPARTATE AMINOTRANSFERASE 58 U/L (15-37); BILIRUBIN,TOTAL 0.2 mg/dL (0.1-1.0); CALCIUM, TOTAL 9.1 mg/dL (8.8-10.5); CARBON DIOXIDE 28 mmol/L (22-29); CHLORIDE 107 mmol/L (98-107); GLUCOSE,RANDOM 137 mg/dL (70-110); POTASSIUM 3.5 mmol/L (3.5-5.1); SODIUM SERUM 141 mmol/L (136-145); UREA NITROGEN, BLOOD 23 mg/dL (7-18)
[2020-08-19 06:22] LABS: GLOMERULAR FILTR. RATE CALC > 60 mL/min (>60)
[2020-08-19] MEDS: ASPIRIN 81 MG CHEWABLE TABLET PO SCH (07:57)
[2020-08-19] MEDS: OxyCODONE HCL 5 MG IR TABLET PO SCH ×4 (07:57→20:30)
[2020-08-19] MEDS: FAMOTIDINE 10 MG/ML 2 ML VIAL IVP SCH ×2 (07:57→20:30)
[2020-08-19] MEDS: MULTIVITAMINS WITH MINERALS, THERAPEUTIC 15 ML UDCUP NG SCH (07:58)
[2020-08-19] MEDS: METOPROLOL SUCCINATE 25 MG ER TABLET PO SCH (07:58)
[2020-08-19] MEDS: DIAZEPAM 5 MG TABLET PO SCH ×3 (07:58→20:30)
[2020-08-19] MEDS: QUEtiapine FUMARATE 25 MG TABLET PO SCH ×2 (07:59→20:30)
[2020-08-19] MEDS: LACTOBAC ACID/BULG/BIFID/THERM TABLET PO SCH ×2 (07:59→20:30)
[2020-08-19] MEDS: ISOSORBIDE MONONITRATE 30 MG ER TABLET PO SCH (07:59)
[2020-08-19] MEDS: DEXAMETHASONE 1 MG TABLET PO SCH (07:59)
[2020-08-19] MEDS: MORPHINE SULFATE 2 MG/ML SYRINGE IVP PRN (08:43)
[2020-08-19 09:47] VITALS: BP 142/67
[2020-08-19 12:00] VITALS: BP 149/68
[2020-08-19 12:25] LABS: GLUCOSE,POINT OF CARE 178 MG/DL (70-110)
[2020-08-19 16:00] VITALS: BP 111/47
[2020-08-19] MEDS ORDERED: SODIUM CHLORIDE 0.9% 250 ML IV ONE ×2 (18:00)
[2020-08-19 18:12] LABS: GLUCOSE,POINT OF CARE 129 MG/DL (70-110)
[2020-08-19] MEDS: SODIUM CHLORIDE 0.9% 500 ML IV SCH (18:46)
[2020-08-19 20:00] VITALS: BP 183/89
[2020-08-19] MEDS: HydrALAZINE HCL 20 MG/ML VIAL IVP PRN (21:21)
[2020-08-20] VITALS: BP 142/76
[2020-08-20] MEDS: HydrALAZINE HCL 20 MG/ML VIAL IVP PRN (03:55)
[2020-08-20 04:00] VITALS: BP 191/91
[2020-08-20] MEDS: LORazepam 2 MG/ML VIAL IVP PRN ×2 (04:14→08:58)
[2020-08-20] MEDS: AMPICILLIN SODIUM 1 GM/NS 50 ML IV SCH ×2 (05:47→12:05)
[2020-08-20] MEDS: MetroNIDAZOLE 500 MG/NACL 100 ML IV SCH (07:40)
[2020-08-20] MEDS: HEPARIN SODIUM,PORCINE 5,000 UNITS/ML VIAL SQ SCH (07:40)
[2020-08-20] MEDS: FAMOTIDINE 10 MG/ML 2 ML VIAL IVP SCH (07:40)
[2020-08-20] MEDS: LACTOBAC ACID/BULG/BIFID/THERM TABLET PO SCH (07:40)
[2020-08-20] MEDS: ISOSORBIDE MONONITRATE 30 MG ER TABLET PO SCH (07:41)
[2020-08-20] MEDS: MULTIVITAMINS WITH MINERALS, THERAPEUTIC 15 ML UDCUP NG SCH (07:41)
[2020-08-20] MEDS: DEXAMETHASONE 1 MG TABLET PO SCH (07:41)
[2020-08-20] MEDS: ASPIRIN 81 MG CHEWABLE TABLET PO SCH (07:41)
[2020-08-20 08:00] VITALS: BP 133/57
[2020-08-20] MEDS: METOPROLOL SUCCINATE 25 MG ER TABLET PO SCH (08:48)
[2020-08-20] MEDS: OxyCODONE HCL 5 MG IR TABLET PO SCH ×2 (08:49→12:05)
[2020-08-20] MEDS: DIAZEPAM 5 MG TABLET PO SCH (09:00)
[2020-08-20] MEDS: QUEtiapine FUMARATE 25 MG TABLET PO SCH (09:00)
[2020-08-20] MEDS: MORPHINE SULFATE 2 MG/ML SYRINGE IVP PRN (10:30)
[2020-08-20 12:00] VITALS: BP 172/74
[2020-08-20] MEDS ORDERED: SODIUM CHLORIDE 0.9% 1,000 ML IV ONE (12:00)
[2020-08-21] MEDS ORDERED: METOPROLOL SUCCINATE 25 MG ER TABLET PO SCH (09:00)
[2020-08-21] MEDS ORDERED: FENTANYL TD SCH (12:00)
== END 2020-08-20 16:07 | disposition short-term general hospital (02) | DRG 4 ==
LOC: EMS 23:21 → AHU 07-01 07:00 → 5N 07-05 11:52 → 3EX 07-10 14:10 → ICU 07-10 14:11 → 5N 08-08 14:10 → ICU 08-14 14:25
PROVIDERS: ADMIT Internal Medicine; ATTEND Internal Medicine
PROC: 5A09357 Assistance with Respiratory Ventilation, Less than 24 Consecutive Hours, Continuous Positive Airway Pressure (ICD-10-PCS; 2020-07-01)
PROC: 0BH17EZ Insertion of Endotracheal Airway into Trachea, Via Natural or Artificial Opening (ICD-10-PCS; 2020-07-01)
PROC: 5A1935Z Respiratory Ventilation, Less than 24 Consecutive Hours (ICD-10-PCS; 2020-07-01)
PROC: 5A09457 Assistance with Respiratory Ventilation, 24-96 Consecutive Hours, Continuous Positive Airway Pressure (ICD-10-PCS; 2020-07-01)
PROC: XW033E5 Introduction of Remdesivir Anti-infective into Peripheral Vein, Percutaneous Approach, New Technology Group 5 (ICD-10-PCS; 2020-07-02)
PROC: 5A0955A Assistance with Respiratory Ventilation, Greater than 96 Consecutive Hours, High Flow/Velocity Cannula (ICD-10-PCS; 2020-07-04)
PROC: 5A09457 Assistance with Respiratory Ventilation, 24-96 Consecutive Hours, Continuous Positive Airway Pressure (ICD-10-PCS; 2020-07-09)
PROC: 02HV33Z Insertion of Infusion Device into Superior Vena Cava, Percutaneous Approach (ICD-10-PCS; 2020-07-11)
PROC: 5A1935Z Respiratory Ventilation, Less than 24 Consecutive Hours (ICD-10-PCS; 2020-07-13)
PROC: 5A09357 Assistance with Respiratory Ventilation, Less than 24 Consecutive Hours, Continuous Positive Airway Pressure (ICD-10-PCS; 2020-07-13)
PROC: 5A09357 Assistance with Respiratory Ventilation, Less than 24 Consecutive Hours, Continuous Positive Airway Pressure (ICD-10-PCS; 2020-07-13)
PROC: 5A1955Z Respiratory Ventilation, Greater than 96 Consecutive Hours (ICD-10-PCS; principal; 2020-07-14)
PROC: 0BH17EZ Insertion of Endotracheal Airway into Trachea, Via Natural or Artificial Opening (ICD-10-PCS; 2020-07-14)
PROC: 0B113F4 Bypass Trachea to Cutaneous with Tracheostomy Device, Percutaneous Approach (ICD-10-PCS; 2020-08-01)
PROC: 0B9D8ZX Drainage of Right Middle Lung Lobe, Via Natural or Artificial Opening Endoscopic, Diagnostic (ICD-10-PCS; 2020-08-01)
PROC: 0DH63UZ Insertion of Feeding Device into Stomach, Percutaneous Approach (ICD-10-PCS; 2020-08-03)
PROC: 02H633Z Insertion of Infusion Device into Right Atrium, Percutaneous Approach (ICD-10-PCS; 2020-08-06)
PROC: 5A09357 Assistance with Respiratory Ventilation, Less than 24 Consecutive Hours, Continuous Positive Airway Pressure (ICD-10-PCS; 2020-08-09)
DX: A41.89 Other specified sepsis (principal); U07.1 COVID-19; J12.82 Pneumonia due to coronavirus disease 2019; I21.4 Non-ST elevation (NSTEMI) myocardial infarction; J80 Acute respiratory distress syndrome; E87.2 Acidosis; B49 Unspecified mycosis; K92.2 Gastrointestinal hemorrhage, unspecified; N39.0 Urinary tract infection, site not specified; Z99.11 Dependence on respirator [ventilator] status; E87.6 Hypokalemia; K06.8 Other specified disorders of gingiva and edentulous alveolar ridge; E11.65 Type 2 diabetes mellitus with hyperglycemia; I10 Essential (primary) hypertension; R13.10 Dysphagia, unspecified; R74.01 Elevation of levels of liver transaminase levels; R00.1 Bradycardia, unspecified; B95.2 Enterococcus as the cause of diseases classified elsewhere; D64.9 Anemia, unspecified; Z88.8 Allergy status to other drugs, medicaments and biological substances; Z91.041 Radiographic dye allergy status; Z79.899 Other long term (current) drug therapy
CPT/HCPCS: 36569; 36600; 71275; 76705; 80074; 82271; 82728; 82805; 83605; 83615; 83735; 84100; 84132; 84145; 85379; 85384; 86140; 87015; 87040; 87070; 87081; 87086; 87101; 87186; 87205; 87206; 87220; 87324; 87426; 87449; 87804; 93005; 93306; 93308; 94002; 94003; 94640; 94660; 99291; A9575; C9113; G0238; G0378; J0290; J0360; J0637; J0696; J0713; J0878; J1100; J1450; J1644; J1956; J2060; J2250; J2270; J2370; J2543; J2704; J2765; J3480; J3490; J3535; J7030; J7040; J7042; J7050; J7060; J7120; J8540; P9046; 36415-L1; 36415-TC; 71045-TC; J7613; U0003

== ENCOUNTER 2022-02-09 19:36 | Emergency (ER) | payer MEDICARE, OTHER ==
[~2022-02-09] VITALS: Ht 152.4 cm; Wt 50.5 kg
[~2022-02-09 19:36] MED LIST: ASPI-1450 PO; ATOR40TA71 PO; HYDR-4723 PO; HYDR25TA84 PO; ISOS30TA92 PO; LOSA-381 PO; MAGN-169 PO; MELA5TAB40 PO; MULT9LIQ7 NG
[2022-02-09] MEDS ORDERED: LOSA-382 PO (19:45)
[2022-02-09] MEDS ORDERED: METO25 PO (19:45)
[2022-02-09 20:26] LABS: BASOPHILS % (AUTO) 0.3 % (0.0-2.0); EOSINOPHILS % (AUTO) 12.5 % (1.0-6.0); HEMATOCRIT 42.2 % (36-46); HEMOGLOBIN 13.9 g/dL (12.0-16.0); LYMPHOCYTES # (AUTO) 1.2 K/uL (1.0-4.8); LYMPHOCYTES % (AUTO) 9.5 % (22.0-44.0); MEAN CORPUSCULAR HGB CONC 32.9 G/dL (31.0-37.0); MEAN CORPUSCULAR VOLUME 85 fL (80-100); MONOCYTES # (AUTO) 0.7 K/uL (0.1-1.0); NEUTROPHILS # (AUTO) 8.7 K/uL (1.8-7.7); NEUTROPHILS % (AUTO) 71.7 % (40.0-70.0); PLATELET COUNT (AUTO) 199 K/uL (150-450); RED BLOOD CELL COUNT(AUTO) 4.95 MIL/uL (4.00-5.20); RED CELL DISTRIBUTION WIDTH 14.3 % (11.5-14.5)
[2022-02-09 20:50] LABS: ALANINE AMINOTRANSFERASE 79 U/L (12-78); ALBUMIN 3.7 g/dL (3.4-5.0); ALKALINE PHOSPHATASE 92 U/L (46-116); ANION GAP 10 mmol/L (8-16); ASPARTATE AMINOTRANSFERASE 46 U/L (15-37); BILIRUBIN,TOTAL 0.9 mg/dL (0.1-1.0); C-REACTIVE PROTEIN QUANT 0.46 mg/dL (0.00-0.30); CALCIUM, TOTAL 9.2 mg/dL (8.8-10.5); CARBON DIOXIDE 24 mmol/L (22-29); CHLORIDE 99 mmol/L (98-107); CREATININE 0.63 mg/dL (0.60-1.30); FERRITIN 86 ng/mL (8-252); GLUCOSE,RANDOM 112 mg/dL (70-110); LACTATE DEHYDROGENASE 287 U/L (81-234); POTASSIUM 3.7 mmol/L (3.5-5.1); SODIUM SERUM 133 mmol/L (136-145); TOTAL PROTEIN, SERUM 8.2 g/dL (6.4-8.2); UREA NITROGEN, BLOOD 13 mg/dL (7-18)
[2022-02-09 20:51] LABS: GLOMERULAR FILTR. RATE CALC > 60 mL/min (>60)
[2022-02-09 21:04] LABS: COVID AG,FIA SOURCE NASAL SWAB
[2022-02-09] MEDS ORDERED: ASPIRIN 81 MG CHEWABLE TABLET PO ONE (21:15)
[2022-02-10] MEDS ORDERED: SODIUM CHLORIDE 0.9% 100 ML ONE (00:58)
[2022-02-10] MEDS ORDERED: IOHEXOL 350 MG/ML 100 ML VIAL ONE (00:59)
[2022-02-10] MEDS ORDERED: NIRM1TAB PO (02:39)
[2022-02-10 03:35] VITALS: BP 138/70
[2022-02-10] MEDS ORDERED: BENZ-70 PO (03:39)
== END 2022-02-10 04:13 | disposition home or self-care (01) ==
LOC: EMS 19:41
DX: U07.1 COVID-19 (principal); J12.82 Pneumonia due to coronavirus disease 2019; E78.00 Pure hypercholesterolemia, unspecified; I10 Essential (primary) hypertension; Z86.16 Personal history of COVID-19; Z98.890 Other specified postprocedural states; Z88.8 Allergy status to other drugs, medicaments and biological substances; Z91.041 Radiographic dye allergy status
CPT/HCPCS: 99285; 71045; 87426; 80053; 82728; 83615; 84484; 85025; 85379; 86140; 36415; 93005; 84145; 71275; Q9967; J7050

== ENCOUNTER → 2022-02-27 | Outpatient (CLI) | payer MEDICARE, OTHER ==
[~2022-02-27] MED LIST changes: -ATOR40TA71 PO; +BENZ-70 PO; -HYDR-4723 PO; -HYDR25TA84 PO; -ISOS30TA92 PO; -LOSA-381 PO; +LOSA-382 PO; +METO25 PO; +NIRM1TAB PO
== END | disposition home or self-care (01) ==
LOC: RADPV 08:39
PROVIDERS: ATTEND Internal Medicine
DX: R79.89 Other specified abnormal findings of blood chemistry (principal); Z90.49 Acquired absence of other specified parts of digestive tract
CPT/HCPCS: 76700

== ENCOUNTER 2022-11-21 06:20 | Inpatient (IN) | payer MEDICARE, OTHER ==
[~2022-11-21] VITALS: Ht 157.5 cm; Wt 50.8 kg
[~2022-11-21 06:20] MED LIST changes: +BENZ-227 PO; -BENZ-70 PO; -NIRM1TAB PO; +NIRM1TAB4 PO
[2022-11-21] MEDS ORDERED: SODIUM CHLORIDE 0.9% 1,000 ML IV ONE ×2 (07:15→15:30)
[2022-11-21] MEDS ORDERED: ACETAMINOPHEN 325 MG TABLET PO ONE (07:15)
[2022-11-21] MEDS ORDERED: ONDANSETRON HCL 4 MG/2 ML VIAL IVP ONE (07:15)
[2022-11-21 07:39] LABS: HEMATOCRIT 43.1 % (36-46); HEMOGLOBIN 14.5 g/dL (12.0-16.0); MEAN CORPUSCULAR HEMOGLOBIN 29.6 pg (26.0-34.0); MEAN CORPUSCULAR HGB CONC 33.6 G/dL (31.0-37.0); MEAN CORPUSCULAR VOLUME 88 fL (80-100); PLATELET COUNT (AUTO) 167 K/uL (150-450); RED BLOOD CELL COUNT(AUTO) 4.89 MIL/uL (4.00-5.20); RED CELL DISTRIBUTION WIDTH 13.3 % (11.5-14.5)
[2022-11-21 07:48] LABS: COVID AG,FIA SOURCE NASOPHARYNGEAL
[2022-11-21 07:53] LABS: ALANINE AMINOTRANSFERASE 42 U/L (12-78); ALBUMIN 2.6 g/dL (3.4-5.0); ALKALINE PHOSPHATASE 101 U/L (46-116); ANION GAP 9 mmol/L (8-16); ASPARTATE AMINOTRANSFERASE 35 U/L (15-37); BILIRUBIN,TOTAL 1.7 mg/dL (0.1-1.0); CALCIUM, TOTAL 9.1 mg/dL (8.8-10.5); CARBON DIOXIDE 25 mmol/L (22-29); CHLORIDE 87 mmol/L (98-107); CREATINE KINASE, TOTAL ONLY 31 U/L (26-192); CREATININE 0.62 mg/dL (0.60-1.30); GLOMERULAR FILTR. RATE CALC > 60 mL/min (>60); GLUCOSE,RANDOM 149 mg/dL (70-110); PHOSPHORUS 2.2 mg/dL (2.5-4.9); TOTAL PROTEIN, SERUM 7.1 g/dL (6.4-8.2)
[2022-11-21 07:57] LABS: SODIUM SERUM 121 mmol/L (136-145)
[2022-11-21 07:58] LABS: POTASSIUM 2.7 mmol/L (3.5-5.1)
[2022-11-21] MEDS ORDERED: POTASSIUM PHOS,M-BASIC-D-BASIC 10 MMOL in DEXTROSE 5%-WATER 100 ML IV ONE (08:00)
[2022-11-21] MEDS ORDERED: POTASSIUM CHLORIDE 20 MEQ ER TABLET PO ONE (08:00)
[2022-11-21 08:04] LABS: B-TYPE NATRIURETIC PEPTIDE 148 pg/mL (0-100)
[2022-11-21 08:13] LABS: INFLUENZA TYPE A NEGATIVE FOR TYPE A (NEGATIVE); INFLUENZA TYPE B NEGATIVE FOR TYPE B (NEGATIVE)
[2022-11-21] MEDS ORDERED: HEPARIN SODIUM 25000 UNITS/D5W 250 ML IV PRN (08:15)
[2022-11-21] MEDS ORDERED: HEPARIN SODIUM,PORCINE 5,000 UNITS/ML VIAL IVP PRN ×2 (08:15)
[2022-11-21] MEDS ORDERED: HEPARIN SODIUM,PORCINE 5,000 UNITS/ML VIAL IVP ONE ×2 (08:15→09:00)
[2022-11-21 08:23] LABS: BAND NEUTROPHILS % (MANUAL) 15 % (0-5); LYMPHOCYTES % (MANUAL) 4 % (22-44); SEGMENTED NEUTROPHILS % 81 % (40-70)
[2022-11-21 08:30] LABS: PROTHROMBIN TIME 10.8 SEC (9.4-11.6)
[2022-11-21] MEDS ORDERED: PIPERACILLIN/TAZO 3.375 GM/D5W 50 ML IV ONE (08:45)
[2022-11-21] MEDS ORDERED: AZITHROMYCIN 500 MG/NS 250 ML IV ONE (08:45)
[2022-11-21] MEDS ORDERED: VANCOMYCIN HCL 1.25 GM in DEXTROSE 5%-WATER 250 ML IV ONE (08:45)
[2022-11-21] MEDS ORDERED: SODIUM CHLORIDE 0.9% 800 ML IV ONE (08:45)
[2022-11-21] MEDS: POTASSIUM CHL 10 MEQ/WATER 50 ML IV SCH ×2 (09:34→11:03)
[2022-11-21] MEDS ORDERED: 0.9% SODIUM CHLORIDE 10 ML SYRINGE IVP PRN (12:30)
[2022-11-21] MEDS ORDERED: ONDANSETRON HCL 4 MG/2 ML VIAL IVP PRN ×2 (12:30→15:15)
[2022-11-21] MEDS ORDERED: ACETAMINOPHEN 325 MG TABLET PO PRN ×2 (12:30→15:15)
[2022-11-21] MEDS ORDERED: DiphenhydrAMINE HCL 50 MG/ML VIAL IVP ONE (13:30)
[2022-11-21] MEDS ORDERED: [UNRECOGNIZED DRUG - OTHER] PO SCH (15:15)
[2022-11-21] MEDS ORDERED: ZOLPIDEM TARTRATE 5 MG TABLET PO PRN (15:15)
[2022-11-21] MEDS ORDERED: BISACODYL 10 MG RECTAL RECTAL SUPPOSITORY PR PRN (15:15)
[2022-11-21] MEDS ORDERED: MAGNESIUM HYDROXIDE SUSPENSION 30 ML UDCUP PO PRN (15:15)
[2022-11-21] MEDS ORDERED: MORPHINE SULFATE 2 MG/ML SYRINGE IVP PRN (15:15)
[2022-11-21] MEDS ORDERED: HYDROCODONE/ACETAMINOPHEN 5-325 MG TABLET PO PRN (15:15)
[2022-11-21] MEDS ORDERED: MELATONIN 5 MG TABLET PO PRN (15:15)
[2022-11-21] MEDS ORDERED: MAGNESIUM SULFATE 2 GM/WATER 50 ML IV PRN (15:30)
[2022-11-21] MEDS ORDERED: MAGNESIUM SULFATE 4 GM/WATER 100 ML IV PRN (15:30)
[2022-11-21] MEDS ORDERED: MAGNESIUM OXIDE 400 MG TABLET PO PRN (15:30)
[2022-11-21] MEDS ORDERED: POTASSIUM CHLORIDE 20 MEQ ER TABLET PO PRN (15:30)
[2022-11-21] MEDS: PIPERACILLIN/TAZO 3.375 GM/D5W 50 ML IV SCH ×2 (16:00→19:56)
[2022-11-21] MEDS ORDERED: HEPARIN SODIUM,PORCINE 5,000 UNITS/ML VIAL SQ SCH (16:00)
[2022-11-21 16:15] VITALS: BP 165/91; PULSE 106; RESP 25; TEMP 98.5
[2022-11-21 20:00] VITALS: BP 166/76; PULSE 98; RESP 22; TEMP 98.5
[2022-11-21] MEDS: DOCUSATE SODIUM 100 MG CAPSULE PO SCH (21:00)
[2022-11-21] MEDS ORDERED: FAMOTIDINE 20 MG TABLET PO ONE (21:30)
[2022-11-21] MEDS ORDERED: DiphenhydrAMINE HCL 25 MG CAPSULE PO ONE (21:30)
[2022-11-21] MEDS ORDERED: PredniSONE 20 MG TABLET PO ONE (21:30)
[2022-11-21 23:49] VITALS: BP 172/68; PULSE 90; RESP 18; TEMP 98.2
[2022-11-22] MEDS ORDERED: HEPARIN SODIUM 25000 UNITS/D5W 250 ML IV PRN (02:15)
[2022-11-22] MEDS ORDERED: HEPARIN SODIUM,PORCINE 5,000 UNITS/ML VIAL IVP ONE (02:15)
[2022-11-22] MEDS ORDERED: HEPARIN SODIUM,PORCINE 5,000 UNITS/ML VIAL IVP PRN ×2 (02:15)
[2022-11-22 05:41] VITALS: BP 168/76; PULSE 82; RESP 18; TEMP 98
[2022-11-22 06:25] LABS: EOSINOPHILS % (AUTO) 0 % (1.0-6.0); LYMPHOCYTES # (AUTO) 0.6 K/uL (1.0-4.8); LYMPHOCYTES % (AUTO) 4.1 % (22.0-44.0); MEAN CORPUSCULAR HEMOGLOBIN 28.6 pg (26.0-34.0); MEAN CORPUSCULAR HGB CONC 32.3 G/dL (31.0-37.0); MEAN CORPUSCULAR VOLUME 89 fL (80-100); MONOCYTES # (AUTO) 0.2 K/uL (0.1-1.0); MONOCYTES % (AUTO) 1.3 % (2.0-9.0); NEUTROPHILS # (AUTO) 14.6 K/uL (1.8-7.7); PLATELET COUNT (AUTO) 168 K/uL (150-450); RED BLOOD CELL COUNT(AUTO) 4.18 MIL/uL (4.00-5.20); RED CELL DISTRIBUTION WIDTH 13.5 % (11.5-14.5)
[2022-11-22 07:03] LABS: NEUTROPHILS % (AUTO) 94.6 % (40.0-70.0)
[2022-11-22 07:24] LABS: ALANINE AMINOTRANSFERASE 27 U/L (12-78); ALKALINE PHOSPHATASE 94 U/L (46-116); ANION GAP 11 mmol/L (8-16); ASPARTATE AMINOTRANSFERASE 16 U/L (15-37); BILIRUBIN,TOTAL 0.7 mg/dL (0.1-1.0); CALCIUM, TOTAL 8.5 mg/dL (8.8-10.5); CARBON DIOXIDE 22 mmol/L (22-29); CHLORIDE 103 mmol/L (98-107); CREATININE 0.46 mg/dL (0.60-1.30); GLOMERULAR FILTR. RATE CALC > 60 mL/min (>60); GLUCOSE,RANDOM 172 mg/dL (70-110); POTASSIUM 3.1 mmol/L (3.5-5.1); SODIUM SERUM 136 mmol/L (136-145); TOTAL PROTEIN, SERUM 6.3 g/dL (6.4-8.2)
[2022-11-22 07:42] VITALS: BP 162/78; PULSE 78; RESP 18; TEMP 98
[2022-11-22 08:00] VITALS: O2SAT 98
[2022-11-22] MEDS: ASPIRIN 81 MG CHEWABLE TABLET PO SCH (08:23)
[2022-11-22] MEDS: PANTOPRAZOLE SODIUM 40 MG DR TABLET PO SCH (08:23)
[2022-11-22] MEDS: METOPROLOL TARTRATE 25 MG TABLET PO SCH ×2 (08:23→19:37)
[2022-11-22] MEDS ORDERED: METOPROLOL TARTRATE 25 MG TABLET PO SCH (09:00)
[2022-11-22] MEDS: LOSARTAN POTASSIUM 50 MG TABLET PO SCH ×2 (09:00→12:31)
[2022-11-22] MEDS: DOCUSATE SODIUM 100 MG CAPSULE PO SCH ×2 (09:00→19:38)
[2022-11-22] MEDS ORDERED: *CLINICAL-LEVOFLOXACIN IVPB DOSING CLINICAL ONE (10:15)
[2022-11-22] MEDS: LEVOFLOXACIN 750 MG/D5% WATER 150 ML IV SCH (11:32)
[2022-11-22 12:39] VITALS: BP 171/74; PULSE 81; RESP 19; TEMP 98.4
[2022-11-22 15:48] VITALS: BP 163/72; PULSE 65; RESP 16; TEMP 98
[2022-11-22] MEDS: MetroNIDAZOLE 500 MG TABLET PO SCH ×2 (16:37→23:27)
[2022-11-22] MEDS: POTASSIUM CHL 10 MEQ/WATER 50 ML IV PRN ×3 (19:38→21:54)
[2022-11-22 19:39] VITALS: BP 177/80; PULSE 80; RESP 18; TEMP 97.7
[2022-11-23] VITALS (7 sets, daily range): BP systolic 157–223; BP diastolic 79–98; PULSE 67–94; RESP 18–23; TEMP 98–98.9
[2022-11-23 06:34] LABS: BASOPHILS % (AUTO) 0.1 % (0.0-2.0); EOSINOPHILS % (AUTO) 2.2 % (1.0-6.0); HEMATOCRIT 36.6 % (36-46); HEMOGLOBIN 12.4 g/dL (12.0-16.0); LYMPHOCYTES # (AUTO) 1.5 K/uL (1.0-4.8); LYMPHOCYTES % (AUTO) 11.1 % (22.0-44.0); MEAN CORPUSCULAR HEMOGLOBIN 29.7 pg (26.0-34.0); MEAN CORPUSCULAR VOLUME 88 fL (80-100); MONOCYTES % (AUTO) 7.3 % (2.0-9.0); NEUTROPHILS # (AUTO) 10.7 K/uL (1.8-7.7); NEUTROPHILS % (AUTO) 79.3 % (40.0-70.0); PLATELET COUNT (AUTO) 213 K/uL (150-450); RED BLOOD CELL COUNT(AUTO) 4.19 MIL/uL (4.00-5.20); RED CELL DISTRIBUTION WIDTH 13.3 % (11.5-14.5)
[2022-11-23] MEDS: ASPIRIN 81 MG CHEWABLE TABLET PO SCH (08:14)
[2022-11-23] MEDS: MetroNIDAZOLE 500 MG TABLET PO SCH (08:14)
[2022-11-23] MEDS: PANTOPRAZOLE SODIUM 40 MG DR TABLET PO SCH (08:15)
[2022-11-23] MEDS: METOPROLOL TARTRATE 25 MG TABLET PO SCH ×2 (08:18→20:49)
[2022-11-23] MEDS: LOSARTAN POTASSIUM 50 MG TABLET PO SCH ×3 (08:18→20:49)
[2022-11-23] MEDS: DOCUSATE SODIUM 100 MG CAPSULE PO SCH ×2 (08:18→20:49)
[2022-11-23] MEDS ORDERED: PredniSONE 20 MG TABLET PO ONE (10:45)
[2022-11-23] MEDS ORDERED: DiphenhydrAMINE HCL 25 MG CAPSULE PO ONE (10:45)
[2022-11-23] MEDS ORDERED: FAMOTIDINE 20 MG TABLET PO ONE (11:15)
[2022-11-23] MEDS: GuaiFENesin [SUGAR-FREE] 200 MG/10 ML SOLUTION UDCUP PO SCH ×2 (14:11→15:48)
[2022-11-24 03:32] VITALS: BP 206/98; PULSE 77; RESP 17; TEMP 98
[2022-11-24 03:36] VITALS: RESP 16
[2022-11-24] MEDS: METOPROLOL TARTRATE 25 MG TABLET PO SCH (06:24)
[2022-11-24] MEDS: GuaiFENesin [SUGAR-FREE] 200 MG/10 ML SOLUTION UDCUP PO SCH ×2 (06:24)
[2022-11-24] MEDS: LOSARTAN POTASSIUM 50 MG TABLET PO SCH (06:24)
[2022-11-24 06:30] LABS: BASOPHILS % (AUTO) 0.1 % (0.0-2.0); EOSINOPHILS % (AUTO) 3.8 % (1.0-6.0); HEMATOCRIT 43.2 % (36-46); HEMOGLOBIN 14.1 g/dL (12.0-16.0); LYMPHOCYTES # (AUTO) 2.2 K/uL (1.0-4.8); LYMPHOCYTES % (AUTO) 17.3 % (22.0-44.0); MEAN CORPUSCULAR HEMOGLOBIN 28.8 pg (26.0-34.0); MEAN CORPUSCULAR HGB CONC 32.7 G/dL (31.0-37.0); MEAN CORPUSCULAR VOLUME 88 fL (80-100); MONOCYTES # (AUTO) 1.4 K/uL (0.1-1.0); MONOCYTES % (AUTO) 11.1 % (2.0-9.0); NEUTROPHILS # (AUTO) 8.6 K/uL (1.8-7.7); NEUTROPHILS % (AUTO) 67.7 % (40.0-70.0); PLATELET COUNT (AUTO) 272 K/uL (150-450); RED BLOOD CELL COUNT(AUTO) 4.91 MIL/uL (4.00-5.20); RED CELL DISTRIBUTION WIDTH 13.5 % (11.5-14.5)
[2022-11-24 08:12] VITALS: BP 195/97; PULSE 70; RESP 18; TEMP 97.9
[2022-11-24 08:49] LABS: ANION GAP 11 mmol/L (8-16); CALCIUM, TOTAL 9.4 mg/dL (8.8-10.5); CARBON DIOXIDE 29 mmol/L (22-29); CHLORIDE 97 mmol/L (98-107); CREATININE 0.47 mg/dL (0.60-1.30); GLOMERULAR FILTR. RATE CALC > 60 mL/min (>60); GLUCOSE,RANDOM 92 mg/dL (70-110); POTASSIUM 3.2 mmol/L (3.5-5.1); SODIUM SERUM 137 mmol/L (136-145)
[2022-11-24] MEDS: DOCUSATE SODIUM 100 MG CAPSULE PO SCH (09:00)
[2022-11-24] MEDS: PANTOPRAZOLE SODIUM 40 MG DR TABLET PO SCH (09:00)
[2022-11-24] MEDS: ASPIRIN 81 MG CHEWABLE TABLET PO SCH (09:37)
[2022-11-24] MEDS: LEVOFLOXACIN 750 MG/D5% WATER 150 ML IV SCH ×2 (11:00→11:28)
[2022-11-24] MEDS ORDERED: SODIUM CHLORIDE 0.9% 500 ML IV ONE (11:19)
[2022-11-24 11:23] VITALS: BP 184/78; PULSE 57; RESP 16; TEMP 98
[2022-11-24] MEDS ORDERED: LOSARTAN POTASSIUM 25 MG TABLET PO ONE (11:45)
[2022-11-24] MEDS ORDERED: METO25 PO (12:02)
[2022-11-24] MEDS ORDERED: LOSA25TA2 PO (12:02)
[2022-11-24] MEDS ORDERED: LEVO750T68 PO (12:02)
[2022-11-24] MEDS ORDERED: LOSARTAN POTASSIUM 25 MG TABLET PO SCH (21:00)
== END 2022-11-24 15:30 | disposition left against medical advice (07) | DRG 871 ==
LOC: EMS 06:22 → 5S 14:29
PROVIDERS: ADMIT Internal Medicine; ATTEND Internal Medicine
DX: A41.9 Sepsis, unspecified organism (principal); I21.A1 Myocardial infarction type 2; J18.9 Pneumonia, unspecified organism; E87.1 Hypo-osmolality and hyponatremia; R65.20 Severe sepsis without septic shock; Z20.822 Contact with and (suspected) exposure to COVID-19; E87.6 Hypokalemia; I10 Essential (primary) hypertension; E78.00 Pure hypercholesterolemia, unspecified; K52.9 Noninfective gastroenteritis and colitis, unspecified; K62.89 Other specified diseases of anus and rectum; T36.8X5A Adverse effect of other systemic antibiotics, initial encounter; Z53.29 Procedure and treatment not carried out because of patient's decision for other reasons; T37.3X5A Adverse effect of other antiprotozoal drugs, initial encounter; Z86.16 Personal history of COVID-19; Z88.1 Allergy status to other antibiotic agents; Z88.8 Allergy status to other drugs, medicaments and biological substances; Z90.49 Acquired absence of other specified parts of digestive tract; Z91.041 Radiographic dye allergy status; Z93.0 Tracheostomy status; L27.0 Generalized skin eruption due to drugs and medicaments taken internally; Y92.230 Patient room in hospital as the place of occurrence of the external cause; Z79.899 Other long term (current) drug therapy; Z79.82 Long term (current) use of aspirin
CPT/HCPCS: 71045; 71250; 72192; 74150; 80048; 80053; 82040; 82550; 83605; 83735; 83880; 83930; 84100; 84132; 84484; 85025; 85610; 85730; 87040; 87804; 93005; 93306; 99291; J0456; J1200; J1644; J1956; J2405; J2543; J3370; J3480; J3490; J7030; J7040; J7060; Q9967; 36415-L1; 36415-TC